=== PATIENT | male | born 1965 ===

== ENCOUNTER 2021-11-11 16:34 | Inpatient (IN) | payer MEDICAID, SELFPAY ==
[2021-11-11] VITALS (156 sets, daily range): BP systolic 110–135; BP diastolic 74–106; PULSE 92–139; RESP 4–26; TEMP 35.6–36.8; O2SAT 89–98
--- NOTE | 2021-11-11 16:15 | RT.EKG_ITS ---
APPROVED REPORT Exam: Resting ECG Reason for Exam: chest heaviness Patient Location: E HR:103 bpm ECG Measurements Heart Rate 103 AXIS [place] 166 P 57 QRSd 100 QRS 31 QT 382 T -21 QTc 481 Conclusion Sinus tachycardia...rate> 99 Atrial premature complexes...SV complexes w/ short R-R intvls Low voltage, extremity leads...all extremity leads <0.5mV Borderline ST elevation, anterior leads...ST >0.15mV in V1-V4. Sinus. PACs. No STEMI. I have reviewed and interpreted ECG and agree with software generated interpretation.
--- NOTE | 2021-11-11 16:45 | RT.EKG_ITS ---
APPROVED REPORT Exam: Resting ECG Reason for Exam: chest pain Patient Location: E HR:103 bpm ECG Measurements Heart Rate 103 AXIS [place] 195 P 60 QRSd 112 QRS 47 QT 385 T 6 QTc 503 Conclusion Ventricular-paced complexes...other complexes also detected Low voltage, extremity leads...all extremity leads <0.5mV Borderline ST elevation, anterior leads...ST >0.15mV in V1-V4 Prolonged QT interval...QTc >500mS. Sinus. PACs. No STEMI. I have reviewed and interpreted ECG and agree with software generated interpretation.
[2021-11-11 16:48] LABS: Abs Immature Grans 0.08 10^3/uL (0.0-0.06); HCT 38.9 % (40.0-50.0); HGB 13.3 g/dL (13.5-17.5); MCH 31.3 pg (27.0-33.0); MCHC 34.2 % (32.0-36.0); MCV 92 fL (80-95); Platelet Count 313 10^3/uL (130-400); RBC 4.25 10^6/uL (4.36-5.78); RDW 13.3 % (11.8-14.1); RDW-SD 44.6 fL; WBC 13.07 10^3/uL (4.4-10.8)
[2021-11-11 17:03] LABS: Absolute Lymphocyte Count 4.05 10^3/uL (1.2-3.4); Absolute Monocyte Count 0.78 10^3/uL (0.1-0.8); Absolute Neutrophil Count 8.23 10^3/uL (1.2-6.7)
[2021-11-11 17:04] LABS: Diff Comment Manual Differential; RBC Morphology Normal
--- NOTE | 2021-11-11 17:15 | DI.CT_ITS ---
Exam(s) CT THORAX ABD/PEL CTA EXAM: CT THORAX ABD/PEL CTA CLINICAL HISTORY: pe vs dissection. TECHNIQUE: Imaging Protocol: Axial CT angiography was performed with multi-slice acquisition and m ulti-planar and/or 3D reconstructions. CONTRAST MATERIAL: Intravenous: Omnipaque 350ml contrast volume:100 mL Oral: No COMPARISON: No exams were available for comparison FINDINGS: CHEST: Tracheobronchial tree: Patent where visualized. Pulmonary parenchyma: There is a 0.5 cm right upper lobe pulmonary nodule. There is a 0.5 cm right l ower lobe pulmonary nodule. Small less than 5 mm subpleural nodules are seen in the left lung. Ther e is a 4 mm nodule associated with the left major fissure. There is an infiltrate seen in the right middle lobe. No architectural distortion. Pulmonary Arteries: No evidence of filling defect to suggest pulmonary emboli. Mediastinum and Alie: There is extensive mediastinal and hilar adenopathy. The largest grouping of e nlarged lymph nodes seen in the subcarinal region measuring 3.8 x 5.68 cm in aggregate. Visualized thyroid: Unremarkable. Pleura: There are bilateral pleural effusions with mild associated infiltrates. There is a moderate right and small left pleural effusion. Heart: The heart is not dilated. Coronary artery calcifications are present. No pericardial effusion . Aorta: Thoracic aorta non-dilated. No evidence of dissection. Atherosclerosis is present. Soft Tissues: Unremarkable. Bones: Within normal limits for the patient's age. ABDOMEN AND PELVIS: Abdomen: Celiac axis/mesenteric arteries: No evidence of occlusion or significant stenosis. Renal Arteries: No evidence of occlusion or significant stenosis. Aorta: No evidence of occlusion or significant stenosis. No aneurysm or dissection. Atherosclerosi s is present. Pelvis: Iliac Arteries: No evidence of occlusion or significant stenosis. Atherosclerosis is present. Common Femoral Arteries: No evidence of occlusion or significant stenosis. Atherosclerosis is prese nt. ABDOMEN: Liver: Normal density. No measurable mass. Gallbladder and Biliary Tract: No radiodense calculus or dilation. There is mild pericholecystic flui d. Pancreas: Normal density, no abnormal calcifications or inflammatory process. Spleen: Normal. Adrenals: No masses seen. Kidneys: Normal size, contour and axis. No radiodense stones or obstructive uropathy. No masses seen. Bowel: No obstruction or bowel wall thickening. Appendix is unremarkable. Peritoneal Cavity: No ascites, collection or mesenteric inflammatory response. No free air. Lymph Nodes: Within normal limits. Bones: Within normal limits for the patient's age. Soft Tissues: Unremarkable. PELVIS: Bladder: Symmetric distention, no gross wall thickening. Reproductive Organs: Unremarkable as visualized. Lymph Nodes: Within normal limits. Bones: Within normal limits. IMPRESSION: 1. Small amount of fluid seen around the gallbladder. No stones are seen. Cholecystitis cannot be e ntirely excluded. Please correlate clinically. Ultrasound may be considered for further evaluation. 2. Extensive thoracic adenopathy. Neoplasm such as lymphoma should be considered. Tissue diagnosis is recommended. 3. Moderate right and small left pleural effusion with associated infiltrates which may represent ate lectasis or pneumonia. 4. No evidence of pulmonary embolism or aortic dissection. RADIATION DOSE DELIVERED: 1,099.87mGy.cm Total DLP DATA REPOSITORY: All CT scans at this facility are submitted to the National Radiology Data Registry (NRDR) Dose Index Registry (DIR) with the [employer] (A[employer]). RADIATION OPTIMIZATION: All CT scans at this facility use at least one of these dose optimization te chniques: automated exposure control; mA and/or kV adjustment per patient size (includes targeted exa ms where dose is matched to clinical indication); or iterative reconstruction.
[2021-11-11 17:44] LABS: ALT 35 U/L (16-63); AST 31 U/L (15-37); Albumin 3.5 g/dL (3.4-5.0); Alkaline Phosphatase 111 U/L (46-116); Anion Gap 10.8 mmol/L (3-11); BUN 23 mg/dL (7-18); Bilirubin, Total 1.2 mg/dL (0.2-1.0); CO2 24.2 mmol/L (21.0-32.0); CREATININE 1.4 mg/dL (0.70-1.30); Calcium 8.8 mg/dL (8.5-10.1); Chloride 102 mmol/L (98-107); Estimated GFR 52.05 (mL/min/1.73m2); Glucose 109 mg/dL (74-106); Magnesium 1.7 mg/dL (1.8-2.4); NT-proBNP 8917 pg/mL (<300); Potassium 4.3 mmol/L (3.5-5.1); Sodium 137 mmol/L (136-145); Total Protein 7.1 g/dL (6.4-8.2); Troponin I < 50 ng/L (<or=60)
[2021-11-11 17:48] LABS: Source Nasal/Nares
[2021-11-11 18:38] LABS: COVID-19 PCR Negative (Negative)
[2021-11-11] MEDS: Omnipaque 350 MG/ML 100 ML BTL IJ (18:40)
[2021-11-11] MEDS: Normal Saline Flush 10 ML SYR IVP ×2 (18:41→23:58)
--- NOTE | 2021-11-11 19:18 | W.ED.GENAD ---
Discharge Plan Disposition Patient Disposition: [facility] INPATIENT Condition: Serious Discharge Details Clinical Impression: Acute cholecystitis, CAD (coronary artery disease), [place] coronary artery, Sarcoid, Mediastinal adenopathy, Pleural effusion, right, Anemia Primary Care Provider: Jared Glez ED Provider: Loly Nur Home Meds and New Rx's Prescriptions: No Action atorvastatin 80 mg Tablet 80 mg PO DAILY meloxicam 7.5 mg Tablet 7.5 mg PO DAILY baclofen 10 mg Tablet 10 mg PO BID omeprazole 20 mg Capsule,Delayed Release(Dr/Ec) 20 mg PO BID hydroxyzine HCl 25 mg Tablet 25 mg PO TID PRN albuterol 90 mcg/actuation Aerosol 90 mcg INHALATION BID fluticasone propion-salmeterol [Advair Diskus] 100-50 mcg/dose Blister With Device 100 inh INHALATION BID fluoxetine 60 mg Tablet 60 mg PO DAILY Medical Decision Making This is a complex patient with known coronary artery disease with 2 stents 2 negative troponins and EKGs that appear baseline for patient From a cardiac standpoint, low suspicion for unstable angina Pain-free throughout this assessment with stable blood pressure 50 arterial chest, abdomen and pelvis shows diffuse mediastinal lymphadenopathy with moderate right-sided pleural effusion and small left-sided pleural effusion, no PE Acute cholecystitis on abdominal and pelvis CT, case discussed with radiologist, Dr. Tong CBC, white blood cell count of 13,000 Bilirubin mildly elevated at 1.2, no LFT or lipase changes Patient started on Zosyn after consultation with Dr. Tello Patient will need to be admitted to medicine as he is complex with multiple comorbidities I did order 20 mg of IV Lasix for suspected volume overload with a BNP of 89,000 which was ordered secondary to dyspnea Case discussed with Dr. Hernandez, agreeable to admitting the patient at this time Patient is full CODE STATUS He received aspirin and nitroglycerin prior to arrival and has been pain-free throughout this encounter Dr. Tello will consult tomorrow HPI General Date/Time Provider Initiated Documentation: 11/11/21 16:37. HPI Narrative: This 66-year-old male with a past medical history of sarcoidosis, coronary artery disease with 2 stents, hyperlipidemia, presents with chest pain for the past 2 and half weeks. Denies any fever or chills. States that he presents today because he went to the [facility] and they recommended he be transferred. He denies any change in pain today. He states he has some dyspnea on exertion. He denies any calf pain or swelling. He denies any recent flights or surgeries, prior, he is incarcerated. Denies prior history of coagulopathy. Denies weight gain. States he had an admission in July for pneumonia reportedly. Has not had a cardiac catheterization or stress test in the past several years. Denies any known exacerbating factors for his chest pain. Does report shortness of breath with exertion. Denies any hemoptysis. Denies any upper respiratory symptoms. Related Data Home Medications Medication Instructions Recorded Confirmed albuterol 90 mcg/actuation aerosol 90 mcg inhalation BID 11/11/21 11/11/21 inhaler atorvastatin 80 mg tablet 80 mg PO DAILY 11/11/21 11/11/21 baclofen 10 mg tablet 10 mg PO BID 11/11/21 11/11/21 fluoxetine 60 mg tablet 60 mg PO DAILY 11/11/21 11/11/21 fluticasone 100 mcg-salmeterol 50 100 inh inhalation BID 11/11/21 11/11/21 mcg/dose blistr powdr for inhalation (Advair Diskus) hydroxyzine HCl 25 mg tablet 25 mg PO TID PRN 11/11/21 11/11/21 meloxicam 7.5 mg tablet 7.5 mg PO DAILY 11/11/21 11/11/21 omeprazole 20 mg capsule,delayed 20 mg PO BID 11/11/21 11/11/21 release Allergies Allergy/AdvReac Type Severity Reaction Status Date / Time streptomycin Allergy Severe Swelling/Ed Unverified 11/11/21 16:41 cayetano pregabalin [From Lyrica] Allergy Unverified 11/11/21 16:41 General Stated Complaint: Chest Pain XANDER: 3 Review of Systems All systems reviewed & are unremarkable except as noted in HPI and below PFSH All Active Problems (Updated 11/11/21 @ 21:55 by Naga Hernandez) CAD (coronary artery disease), [place] coronary artery (Acute) Anemia (Chronic) Status post lumbar laminectomy (Acute) DJD (degenerative joint disease), lumbar (Acute) Mediastinal adenopathy (Acute) Sarcoid (Acute) Chronic GERD (Acute) Elevated brain natriuretic peptide (BNP) level (Acute) Enlarged heart (Acute) Pleural effusion, right (Acute) Acute cholecystitis (Acute) Social History Smoking/Tobacco Use Status: Former Tobacco Use Smoking risk assessment performed?: Yes Alcohol Intake: former Substance use type: does not use Do you feel safe at home: Yes Do you feel safe in your relationship?: Yes Exam Const General: cooperative and ill appearing Orientation: alert and oriented x3 HENMT Head: normal to inspection Mouth: oral mucosae normal Eyes Pupils: PERRL Resp Effort & Inspection: normal respiratory effort Auscultation: clear to auscultation bilaterally Cardio Rate: regular rate Rhythm: regular rhythm Heart Sounds: no murmurs GI Inspection: normal to inspection Other: mild ruq tenderness Skin General skin exam: no rashes or lesions noted Neuro General: patient alert and patient oriented x3 Extrem General: normal to inspection Other: no peripheral edema distal pulses intact n/v intact Course Vital Signs Vital signs: Vital Signs Temperature 36.1 C L 11/11/21 16:34 Pulse 92 H 11/11/21 16:34 Respiratory Rate 16 11/11/21 16:34 Blood Pressure 122/77 11/11/21 16:34 Pulse Oximetry 93 11/11/21 16:34 Temperature 36.1 C L 11/11/21 16:34 Pulse 96 H 11/11/21 18:01 Pulse 104 H 11/11/21 18:10 Respiratory Rate 21 11/11/21 18:10 Respiratory Effort 11/11/21 16:46 Respiratory Depth Normal 11/11/21 16:46 Respiratory Pattern Normal 11/11/21 16:46 Blood Pressure 115/91 H 11/11/21 18:01 Blood Pressure Mean 98 11/11/21 18:01 Pulse Oximetry 91 L 11/11/21 18:10 Pain Level 5 11/11/21 16:46 Lab/Test Results Lab/Test Results: Laboratory Tests Range/Units 11/11/21 11/11/21 11/11/21 16:40 16:40 17:17 WBC (4.4-10.8) 10^3/uL 13.07 H RBC (4.36-5.78) 10^6/uL 4.25 L Hgb (13.5-17.5) g/dL 13.3 L Hct (40.0-50.0) % 38.9 L MCV (80-95) fL 92 MCH (27.0-33.0) pg 31.3 MCHC (32.0-36.0) % 34.2 RDW (11.8-14.1) % 13.3 Plt Count (130-400) 10^3/uL 313 MPV (8.0-11.0) fL 11.0 Immature Gran % 0.0 Neutrophils % 63.0 Lymphocytes % 31.0 Monocytes % 6.0 Eosinophils % 0.0 Basophils % 0.0 Nucleated RBC % (0.0-0.3) % 0.0 Absolute Neutrophils (1.2-6.7) 10^3/uL 8.23 H Absolute Lymphocytes (1.2-3.4) 10^3/uL 4.05 H Absolute Monocytes (0.1-0.8) 10^3/uL 0.78 Absolute Eosinophils (0.0-0.7) 10^3/uL 0.00 Absolute Basophils (0.0-0.2) 10^3/uL 0.00 RBC Morphology Normal Sodium Cancelled 137 Potassium Cancelled 4.3 Chloride Cancelled 102 Carbon Dioxide Cancelled 24.2 Anion Gap Cancelled 10.8 BUN Cancelled 23 H Creatinine Cancelled 1.4 H Estimated GFR/1.73 m2 Cancelled 52.05 Glucose Cancelled 109 H Calcium Cancelled 8.8 Magnesium Cancelled 1.7 L Total Bilirubin Cancelled 1.2 H AST Cancelled 31 ALT Cancelled 35 Alkaline Phosphatase Cancelled 111 Troponin I Cancelled < 50 NT-Pro-B Natriuret Pep Cancelled 8917 H Total Protein Cancelled 7.1 Albumin Cancelled 3.5 COVID-19 Source SARS-CoV-2 (PCR) (Negative) Range/Units 11/11/ 17:40 WBC (4.4-10.8) 10^3/uL RBC (4.36-5.78) 10^6/uL Hgb (13.5-17.5) g/dL Hct (40.0-50.0) % MCV (80-95) fL MCH (27.0-33.0) pg MCHC (32.0-36.0) % RDW (11.8-14.1) % Plt Count (130-400) 10^3/uL MPV (8.0-11.0) fL Immature Gran % Neutrophils % Lymphocytes % Monocytes % Eosinophils % Basophils % Nucleated RBC % (0.0-0.3) % Absolute Neutrophils (1.2-6.7) 10^3/uL Absolute Lymphocytes (1.2-3.4) 10^3/uL Absolute Monocytes (0.1-0.8) 10^3/uL Absolute Eosinophils (0.0-0.7) 10^3/uL Absolute Basophils (0.0-0.2) 10^3/uL RBC Morphology Sodium Potassium Chloride Carbon Dioxide Anion Gap BUN Creatinine Estimated GFR/1.73 m2 Glucose Calcium Magnesium Total Bilirubin AST ALT Alkaline Phosphatase Troponin I NT-Pro-B Natriuret Pep Total Protein Albumin COVID-19 Source Nasal/Nares SARS-CoV-2 (PCR) (Negative) Negative
[2021-11-11] MEDS: fentaNYL 100 MCG/2 ML VIAL 50 MCG IVP (19:27)
--- NOTE | 2021-11-11 19:41 | DI.VRAD_ITS ---
Addendum created by Stanley Tong MD on 11/11/2021 9:15:12 PM EDT: Correction in the body of the report: Under the heading of intraperitoneal space, mild pelvic free air is recorded. This should read, mild pelvic free fluid. There is no free air observed in the abdomen or pelvis. Findings were discussed with Loly Nur at 11/11/2021 9:14 PM EDT. Addendum created by Stanley Tong MD on 11/11/2021 7:46:20 PM EDT: Findings were discussed with Loly Nur at 11/11/2021 7:43 PM EDT. Initial report created on 11/11/2021 7:41:44 PM EDT: PROCEDURE INFORMATION: Exam: CTA Chest With Contrast CTA Abdomen and Pelvis With Contrast Exam date and time: 11/11/2021 6:20 PM Age: 56 years old Clinical indication: Other: Pe vs dissection; Abdominal pain; Generalized TECHNIQUE: Imaging protocol: Computed tomographic angiography of the chest with contrast. Computed tomographic angiography of the abdomen and pelvis with contrast. 3D rendering (Not supervised by radiologist): MIP and/or 3D reconstructed images were created by the technologist. Contrast material: OMNIPAQUE 350; Contrast volume: 100 ml; Contrast route: INTRAVENOUS (IV); COMPARISON: No relevant prior studies available. FINDINGS: VASCULATURE: Pulmonary arteries: Normal. No pulmonary emboli. Aorta: No aortic aneurysm. No aortic dissection. No significant thoracic aortic plaque. Moderate plaque noted in the infrarenal abdominal aorta. Celiac trunk and mesenteric arteries: No occlusion or significant stenosis. Renal arteries: No occlusion or significant stenosis. Duplicated renal arteries noted on the right. Right iliac arteries: No occlusion or significant stenosis. Mild plaque. Left iliac arteries: No occlusion or significant stenosis. Mild plaque. CHEST: Lungs: Bilateral lower lobe consolidations and ground-glass opacities are present. Peripheral consolidation or scarring noted in the right middle lobe. No significant endobronchial mucus. Pleural spaces: Moderate right pleural effusion. Mild left pleural effusion. The effusions layer dependently, and no loculations are observed. Negative for pneumothorax. Heart: Mild-moderate coronary artery calcification. No cardiomegaly. No pericardial effusion. ABDOMEN AND PELVIS: Liver: No mass. Gallbladder and bile ducts: The gallbladder is abnormal. Fat stranding noted around the gallbladder. No calcified stones. No ductal dilatation. Pancreas: Unremarkable. No mass. No ductal dilation. Spleen: Unremarkable. No splenomegaly. Adrenal glands: Unremarkable. No mass. Kidneys and ureters: Unremarkable. No solid mass. No hydronephrosis. Stomach and bowel: Unremarkable. No obstruction. No mucosal thickening. Appendix: No evidence of appendicitis. Intraperitoneal space: Mild pelvic free air. No significant fluid collection. No free air. Urinary bladder: Unremarkable. No mass. Reproductive: Unremarkable as visualized. Lymph nodes: Mediastinal lymphadenopathy is noted. Paratracheal, subcarinal, subaortic, and bilateral hilar lymph nodes are enlarged. Lymph nodes are not calcified. A subcarinal lymph node or lymph node complex measures 2.8 x 5.1 cm, axial image 26 series 4. Mild bilateral supraclavicular lymphadenopathy partially visualized. Mildly enlarged portacaval lymph node noted. Bones/joints: Mild depression noted at the L1 superior endplate, chronic in appearance. Thoracic kyphosis is exaggerated. Mild disc space narrowing and osteophyte formation noted at several levels in the thoracic spine. Posterior fusion with laminectomy noted at L2-L3. Moderate degenerative changes present in the lumbar spine. Mild levoscoliosis noted. Soft tissues: Unremarkable. IMPRESSION: 1. CT findings of acute cholecystitis. Clinical correlation needed. Consider ultrasound. 2. Moderate mediastinal lymphadenopathy. Malignancy and granulomatous disease considered. Follow-up to tissue diagnosis recommended. Mild supraclavicular lymphadenopathy also noted. Consider CT soft tissue neck or PET-CT evaluation after resolution of the gallbladder disease. 3. Moderate right pleural effusion. 4. Mild left pleural effusion. 5. Sites of atelectasis and/or pneumonia in the lung bases. 6. Mild depression at the L1 superior endplate. 7. No pulmonary embolism. 8. No aortic dissection. Dictated and Authenticated by: Stanley Tong MD. Ordering:SE Salcido MD
[2021-11-11 19:48] LABS: Bilirubin Negative (Negative); Blood Negative (Negative); Clarity Clear (Clear); Glucose Negative (Negative); Ketones Negative (Negative); Leukocyte Esterase Negative (Negative); Nitrite Negative (Negative); Specific Gravity 1.025 (1.005-1.025); pH 5.5 (5-8)
[2021-11-11 20:07] LABS: Troponin I < 50 ng/L (<or=60)
[2021-11-11 20:08] LABS: Lipase 29 U/L (73-393)
--- NOTE | 2021-11-11 20:50 | PGE_ITS ---
Date of Service Date of service: 11/11/21 Time of Service: 20:50 Assessment and Plan Assessment and plan (1) Acute cholecystitis: Status: Acute Assessment and plan: Zosyn Supportive care Given his past medical history, his findings on CT scan and labs today, and our paucity of medical history on this patient, I would suggest further work-up to risk stratify for cardiopulmonary risk prior to general anesthesia. Full consultation to follow in a.m. Further work-up per professional programmer analyst/hospitalist (2) Pleural effusion, right: Status: Acute (3) Enlarged heart: Status: Acute (4) Elevated brain natriuretic peptide (BNP) level: Status: Acute Assessment and plan: Echo in a.m., if available (5) Chronic GERD: Status: Acute Assessment and plan: PPI (6) Sarcoid: Status: Acute Assessment and plan: - Consider pulmonary consult (7) Mediastinal adenopathy: Status: Acute (8) DJD (degenerative joint disease), lumbar: Status: Acute (9) Status post lumbar laminectomy: Status: Acute (10) Anemia: Status: Chronic Assessment and plan: Ferritin in a.m. Subjective Subjective Interval history since last seen: Patient came into the ED complaining of chest pain. He appears to have a acute cholecystitis on CT scan. He also appears to have a large right pleural effusion/on large body heart on CT scan/and a BNP of 9000. He needs more of a cardiac evaluation prior to any surgery. I would admit him for IV antibiotics and further cardiac work-up before consideration of surgery. Objective Last Vital Signs Temp 36.1 C L 11/11/21 16:34 Pulse 133 H 11/11/21 19:31 Resp 20 11/11/21 19:52 BP 132/94 H 11/11/21 19:46 Pulse Ox 95 11/11/21 19:52 Laboratory Results - last 24 hr 11/11/21 11/11/21 11/11/21 16:40 16:40 17:17 WBC 13.07 H RBC 4.25 L Hgb 13.3 L Hct 38.9 L MCV 92 MCH 31.3 MCHC 34.2 RDW 13.3 Plt Count 313 MPV 11.0 Immature Gran % 0.0 Neutrophils % 63.0 Lymphocytes % 31.0 Monocytes % 6.0 Eosinophils % 0.0 Basophils % 0.0 Nucleated RBC % 0.0 Absolute Neutrophils 8.23 H Absolute Lymphocytes 4.05 H Absolute Monocytes 0.78 Absolute Eosinophils 0.00 Absolute Basophils 0.00 RBC Morphology Normal Sodium Cancelled 137 Potassium Cancelled 4.3 Chloride Cancelled 102 Carbon Dioxide Cancelled 24.2 Anion Gap Cancelled 10.8 BUN Cancelled 23 H Creatinine Cancelled 1.4 H Estimated GFR/1.73 m2 Cancelled 52.05 Glucose Cancelled 109 H Calcium Cancelled 8.8 Magnesium Cancelled 1.7 L Total Bilirubin Cancelled 1.2 H AST Cancelled 31 ALT Cancelled 35 Alkaline Phosphatase Cancelled 111 Troponin I Cancelled < 50 NT-Pro-B Natriuret Pep Cancelled 8917 H Total Protein Cancelled 7.1 Albumin Cancelled 3.5 Lipase Urine Color Urine Clarity Urine pH Ur Specific [place] Urine Protein Urine Ketones Urine Blood Urine Nitrite Urine Bilirubin Urine Urobilinogen Ur Leukocyte Esterase Urine Glucose COVID-19 Source SARS-CoV-2 (PCR) 11/11/21 11/11/21 11/11/21 17:40 19:23 19:45 WBC RBC Hgb Hct MCV MCH MCHC RDW Plt Count MPV Immature Gran % Neutrophils % Lymphocytes % Monocytes % Eosinophils % Basophils % Nucleated RBC % Absolute Neutrophils Absolute Lymphocytes Absolute Monocytes Absolute Eosinophils Absolute Basophils RBC Morphology Sodium Potassium Chloride Carbon Dioxide Anion Gap BUN Creatinine Estimated GFR/1.73 m2 Glucose Calcium Magnesium Total Bilirubin AST ALT Alkaline Phosphatase Troponin I < 50 NT-Pro-B Natriuret Pep Total Protein Albumin Lipase Urine Color Yellow Urine Clarity Clear Urine pH 5.5 Ur Specific [place] 1.025 Urine Protein Negative Urine Ketones Negative Urine Blood Negative Urine Nitrite Negative Urine Bilirubin Negative Urine Urobilinogen 1.0 H Ur Leukocyte Esterase Negative Urine Glucose Negative COVID-19 Source Nasal/Nares SARS-CoV-2 (PCR) Negative 11/11/21 19:45 WBC RBC Hgb Hct MCV MCH MCHC RDW Plt Count MPV Immature Gran % Neutrophils % Lymphocytes % Monocytes % Eosinophils % Basophils % Nucleated RBC % Absolute Neutrophils Absolute Lymphocytes Absolute Monocytes Absolute Eosinophils Absolute Basophils RBC Morphology Sodium Potassium Chloride Carbon Dioxide Anion Gap BUN Creatinine Estimated GFR/1.73 m2 Glucose Calcium Magnesium Total Bilirubin AST ALT Alkaline Phosphatase Troponin I NT-Pro-B Natriuret Pep Total Protein Albumin Lipase 29 Urine Color Urine Clarity Urine pH Ur Specific [place] Urine Protein Urine Ketones Urine Blood Urine Nitrite Urine Bilirubin Urine Urobilinogen Ur Leukocyte Esterase Urine Glucose COVID-19 Source SARS-CoV-2 (PCR)
[2021-11-11] MEDS: Furosemide 20 MG/2 ML VIAL IVP (21:11)
[2021-11-11] MEDS: PIPERACILLIN/TAZO 3.375 GM in Normal Saline 50 ML IVPB (21:12)
[2021-11-11 21:33] LABS: Lactate 1.5 mmol/L (0.6-1.4)
[2021-11-11 21:38] LABS: INR 1.2 (0.9-1.1)
--- NOTE | 2021-11-11 21:53 | HPE_ITS ---
Date of service: 11/11/21 Time of Service: 21:54 Assessment and Plan Assessment and plan (1) Atypical chest pain: Start date: 11/11/21 Status: Acute Assessment and plan: This is a 56-year-old female who presented [facility] the ED [facility] with a 2-week history of chest pain and discomfort over his abdomen and his right testicle. Imaging and evaluation in the ER regarding the patient and possible cholecystitis did have a response to nitroglycerin x2 sublingual before reaching the emergency department. He will be admitted for trending troponins and is having surgical consultation for possible cholecystitis. His description of chest pain is not typical of angina. He does have a history of CAD with previous stenting. (2) CAD (coronary artery disease), [place] coronary artery: Status: Chronic Assessment and plan: Ongoing risk factors with previous stenting and response to nitroglycerin sublingually without chest pain, has been esophageal with possible GI process with cholecystitis being followed by surgery. Continue outpatient medical therapy with nitroglycerin sublingually as needed. (3) Pleural effusion, right: Start date: 11/11/21 Status: Acute Assessment and plan: Probable CHF associate with CAD with patient to have diuresis if indicated. Echocardiogram to be evaluated with cardiology consultation if available. (4) Acute cholecystitis: Start date: 11/11/21 Status: Suspected Assessment and plan: Ultrasound abdomen scheduled by surgery with surgery following up on abnormal CT. Patient has normal discomfort over his gallbladder area. (5) Sarcoid: Status: Chronic Assessment and plan: Patient has history of sarcoidosis and does have some abnormal CT findings of the chest which may be contributing to his discomfort. IV hydrocortisone with consideration of oral steroids. Long-term needs to see pulmonary and further evaluation if he has recurring sarcoidosis. (6) Acute epididymitis: Start date: 11/11/21 Status: Acute Assessment and plan: Acute onset of right testicular pain with minimal physical findings but will add doxycycline to antibiotic treatment. Follow-up clinically. History of Present Illness History of Present Illness Chief Complaint: Chest pain at rest, MARTELL and right testicular pain Narrative: This is a 86-year-old male who is incarcerated locally who presented to the ED with complaints of left chest pain for 1 and half. He was [facility] and he was sent to the ED for evaluation. He did receive nitroglycerin x2 prior to arrival to the ED with complete relief in initial discomfort in his left chest and was pain-free throughout his evaluation only complaint of ankle pain left upper mid chest the time of my examination. He states that the chest pain was not reproducible to palpation and had no radiate. He did appear slightly diaphoretic and pale in the ED and continues to look chronically ill at time of my exam examination. He denies any swelling to lower extremities but does have discomfort over his right testicle which is a separate problem. He does have occasional abdominal discomfort mostly over his right upper abdomen. He was found to have cholecystitis on imaging the ED. Surgery has been consulted. The patient does have a past history of sarcoidosis and CAD status post stenting x2 in the remote past. He has hyperlipidemia and is obese. He appears sedentary. Patient did have an admission for pneumonia in July of this year. He denies any history of coagulopathy. He has had dyspnea with exertion but no hemoptysis and no significant cough. He was admitted for further evaluation by surgery and trending of troponins with his chest discomfort re sponding to nitroglycerin sublingually. Cardiology has exercised for nuclear stress test should be performed and may be necessary for preoperative clearance if patient is entertaining surgery. Review of Systems Narrative: 13 point review of systems otherwise unrevealing or stable. Patient has depressed mood and increased somatic complaint. PFSH All Active Problems COPD (chronic obstructive pulmonary disease) (Chronic) Discharge planning issues (Acute) DVT prophylaxis (Acute) Acute on chronic systolic CHF (congestive heart failure) (Acute) Bilateral pleural effusion (Acute) Thoracic lymphadenopathy (Chronic) Scrotal pain (Acute) COPD suggested by initial evaluation (Acute) CHF (congestive heart failure) (Chronic) Scrotal pain (Acute) Acute epididymitis (Acute) Atypical chest pain (Acute) CAD (coronary artery disease), [place] coronary artery (Chronic) Anemia (Chronic) Status post lumbar laminectomy (Acute) DJD (degenerative joint disease), lumbar (Acute) Mediastinal adenopathy (Acute) Sarcoid (Chronic) Chronic GERD (Acute) Elevated brain natriuretic peptide (BNP) level (Acute) Enlarged heart (Acute) Pleural effusion, right (Acute) Social History Smoking/Tobacco Use Status: Former Tobacco Use Smoking risk assessment performed?: Yes Alcohol Intake: former Substance use type: does not use Do you feel safe at home: Yes Do you feel safe in your relationship?: Yes Meds Allergies and Home Medications Allergies Allergy/AdvReac Type Severity Reaction Status Date / Time streptomycin Allergy Severe Swelling/Ed Unverified 11/11/21 16:41 cayet[place] pregabalin [From Lyrica] Allergy Unverified 11/11/21 16:41 Home Medications Medication Instructions Recorded Confirmed Type albuterol 90 mcg/actuation aerosol 90 mcg inhalation BID 11/11/21 11/11/21 History inhaler atorvastatin 80 mg tablet 80 mg PO DAILY 11/11/21 11/11/21 History baclofen 10 mg tablet 10 mg PO BID 11/11/21 11/11/21 History fluoxetine 60 mg tablet 60 mg PO DAILY 11/11/21 11/11/21 History fluticasone 100 mcg-salmeterol 50 100 inh inhalation BID 11/11/21 11/11/21 History mcg/dose blistr powdr for inhalation (Advair Diskus) hydroxyzine HCl 25 mg tablet 25 mg PO TID PRN 11/11/21 11/11/21 History meloxicam 7.5 mg tablet 7.5 mg PO DAILY 11/11/21 11/11/21 History omeprazole 20 mg capsule,delayed 20 mg PO BID 11/11/21 11/11/21 History release Exam Narrative Exam Narrative: General: Patient appears older than stated age, flattened affect with depressed mood. Slow monotonous tone to voice. Alert and oriented x3 and in moderate distress from his discomfort. HEENT: Normocephalic, coarsened facial features cleanly shaved, eyes with pupils equal and reactive to light, extraocular movement intact and sclera anicteric. Oropharynx with moist mucosa. Neck: Supple without JVD. Back: Stooped posture without CVA tenderness. Lungs: Bronchovesicular breath sounds diffusely with no focalizing rales or rhonchi no expiratory wheeze. Slightly decreased aeration diffusely. Flank tenderness to palpation of the left upper mid chest without crepitus. Heart: Regular rate and rhythm with no appreciable murmur or gallop. Abdomen: Obese contour, soft to palpation and slight discomfort over right upper quadrant but no Phillips sign. Bowel sounds positive in all quadrants. No palpable hepatosplenomegaly. Genitalia: Normal penis and scrotum with left testicle normal. Right testicle with tender epididymis and indurated cord with minimal swelling. No other palpa ble masses. Rectal exam deferred. Extremities: Without clubbing, cyanosis or pitting edema. Fair capillary refill. Skin: Pale, warm and dry. Neuro: Cranial nerves II through XII grossly intact, no focalizing motor deficits. Psych: Flat affect with depressed mood. No abnormal thought processes. Remote and recent memory intact. Results Imaging Imaging Studies: Addendum created by Stanley Tong MD on 11/11/2021 9:15:12 PM EDT: Correction in the body of the report: Under the heading of intraperitoneal space, mild pelvic free air is recorded. ?This should read, mild pelvic free fluid.? There is no free air observed in the abdomen or pelvis. Findings were discussed with Loly Nur at 11/11/2021 9:14 PM EDT. Addendum created by Stanley Tong MD on 11/11/2021 7:46:20 PM EDT: Findings were discussed with Loly Nur at 11/11/2021 7:43 PM EDT. Initial report created on 11/11/2021 7:41:44 PM EDT: PROCEDURE INFORMATION: Exam: CTA Chest With Contrast CTA Abdomen and Pelvis With Contrast Exam date and time: 11/11/2021 6:20 PM Age: 56 years old Clinical indication: Other: Pe vs dissection; Abdominal pain; Generalized TECHNIQUE: Imaging protocol: Computed tomographic angiography of the chest with contrast. Computed tomographic angiography of the abdomen and pelvis with contrast. 3D rendering (Not supervised by radiologist): MIP and/or 3D reconstructed images were created by the technologist. Contrast material: OMNIPAQUE 350; Contrast volume: 100 ml; Contrast route: INTRAVENOUS (IV);? COMPARISON: No relevant prior studies available. FINDINGS: VASCULATURE: Pulmonary arteries: Normal. No pulmonary emboli. Aorta: No aortic aneurysm. No aortic dissection. No significant thoracic aortic plaque. Moderate plaque noted in the infrarenal abdominal aorta. Celiac trunk and mesenteric arteries: No occlusion or significant stenosis. Renal arteries: No occlusion or significant stenosis. Duplicated renal arteries noted on the right. Right iliac arteries: No occlusion or significant stenosis. Mild plaque. Left iliac arteries: No occlusion or significant stenosis. Mild plaque. CHEST: Lungs: Bilateral lower lobe consolidations and ground-glass opacities are present. Peripheral consolidation or scarring noted in the right middle lobe. No significant endobronchial mucus. Pleural spaces: Moderate right pleural effusion. Mild left pleural effusion. The effusions layer dependently, and no loculations are observed. Negative for pneumothorax. Heart: Mild-moderate coronary artery calcification. No cardiomegaly. No pericardial effusion. ABDOMEN AND PELVIS: Liver: No mass. Gallbladder and bile ducts: The gallbladder is abnormal. Fat stranding noted around the gallbladder. No calcified stones. No ductal dilatation. Pancreas: Unremarkable. No mass. No ductal dilation. Spleen: Unremarkable. No splenomegaly. Adrenal glands: Unremarkable. No mass. Kidneys and ureters: Unremarkable. No solid mass. No hydronephrosis. Stomach and bowel: Unremarkable. No obstruction. No mucosal thickening. Appendix: No evidence of appendicitis. Intraperitoneal space: Mild pelvic free air. No significant fluid collection. No free air. Urinary bladder: Unremarkable. No mass. Reproductive: Unremarkable as visualized. Lymph nodes: Mediastinal lymphadenopathy is noted. Paratracheal, subcarinal, subaortic, and bilateral hilar lymph nodes are enlarged. Lymph nodes are not calcified. A subcarinal lymph node or lymph node complex measures 2.8 x 5.1 cm, axial image 26 series 4. Mild bilateral supraclavicular lymphadenopathy partially visualized. Mildly enlarged portacaval lymph node noted. Bones/joints: Mild depression noted at the L1 superior endplate, chronic in appearance. Thoracic kyphosis is exaggerated. Mild disc space narrowing and osteophyte formation noted at several levels in the thoracic spine. Posterior fusion with laminectomy noted at L2-L3. Moderate degenerative changes present in the lumbar spine. Mild levoscoliosis noted. Soft tissues: Unremarkable. IMPRESSION: 1. CT findings of acute cholecystitis. Clinical correlation needed. Consider ultrasound. 2. Moderate mediastinal lymphadenopathy. Malignancy and granulomatous disease considered. Follow-up to tissue diagnosis recommended. Mild supraclavicular lymphadenopathy also noted. Consider CT soft tissue neck or PET-CT evaluation after resolution of the gallbladder disease. 3. Moderate right pleural effusion. 4. Mild left pleural effusion. 5. Sites of atelectasis and/or pneumonia in the lung bases. 6. Mild depression at the L1 superior endplate. 7. No pulmonary embolism. 8. No aortic dissection. Dictated and Authenticated by: Stanley Tong MD. Labs Result diagrams: 11/12/21 04:01 11/12/21 05:35 Labs: Laboratory Results - last 24 hr 11/11/21 11/11/21 11/11/21 16:40 16:40 16:40 WBC 13.07 H RBC 4.25 L Hgb 13.3 L Hct 38.9 L MCV 92 MCH 31.3 MCHC 34.2 RDW 13.3 Plt Count 313 MPV 11.0 Immature Gran % 0.0 Neutrophils % 63.0 Lymphocytes % 31.0 Monocytes % 6.0 Eosinophils % 0.0 Basophils % 0.0 Nucleated RBC % 0.0 Absolute Neutrophils 8.23 H Absolute Lymphocytes 4.05 H Absolute Monocytes 0.78 Absolute Eosinophils 0.00 Absolute Basophils 0.00 RBC Morphology Normal PT 12.0 H INR 1.2 H VBG Lactate Sodium Cancelled Potassium Cancelled Chloride Cancelled Carbon Dioxide Cancelled Anion Gap Cancelled BUN Cancelled Creatinine Cancelled Estimated GFR/1.73 m2 Cancelled Glucose Cancelled Calcium Cancelled Magnesium Cancelled Total Bilirubin Cancelled AST Cancelled ALT Cancelled Alkaline Phosphatase Cancelled Troponin I Cancelled NT-Pro-B Natriuret Pep Cancelled Total Protein Cancelled Albumin Cancelled Lipase Urine Color Urine Clarity Urine pH Ur Specific [place] Urine Protein Urine Ketones Urine Blood Urine Nitrite Urine Bilirubin Urine Urobilinogen Ur Leukocyte Esterase Urine Glucose COVID-19 Source SARS-CoV-2 (PCR) 11/11/21 11/11/21 11/11/21 17:17 17:40 19:23 WBC RBC Hgb Hct MCV MCH MCHC RDW Plt Count MPV Immature Gran % Neutrophils % Lymphocytes % Monocytes % Eosinophils % Basophils % Nucleated RBC % Absolute Neutrophils Absolute Lymphocytes Absolute Monocytes Absolute Eosinophils Absolute Basophils RBC Morphology PT INR VBG Lactate Sodium 137 Potassium 4.3 Chloride 102 Carbon Dioxide 24.2 Anion Gap 10.8 BUN 23 H Creatinine 1.4 H Estimated GFR/1.73 m2 52.05 Glucose 109 H Calcium 8.8 Magnesium 1.7 L Total Bilirubin 1.2 H AST 31 ALT 35 Alkaline Phosphatase 111 Troponin I < 50 NT-Pro-B Natriuret Pep 8917 H Total Protein 7.1 Albumin 3.5 Lipase Urine Color Yellow Urine Clarity Clear Urine pH 5.5 Ur Specific [place] 1.025 Urine Protein Negative Urine Ketones Negative Urine Blood Negative Urine Nitrite Negative Urine Bilirubin Negative Urine Urobilinogen 1.0 H Ur Leukocyte Esterase Negative Urine Glucose Negative COVID-19 Source Nasal/Nares SARS-CoV-2 (PCR) Negative 11/11/21 11/11/21 11/11/21 19:45 19:45 21:27 WBC RBC Hgb Hct MCV MCH MCHC RDW Plt Count MPV Immature Gran % Neutrophils % Lymphocytes % Monocytes % Eosinophils % Basophils % Nucleated RBC % Absolute Neutrophils Absolute Lymphocytes Absolute Monocytes Absolute Eosinophils Absolute Basophils RBC Morphology PT INR VBG Lactate 1.5 H Sodium Potassium Chloride Carbon Dioxide Anion Gap BUN Creatinine Estimated GFR/1.73 m2 Glucose Calcium Magnesium Total Bilirubin AST ALT Alkaline Phosphatase Troponin I < 50 NT-Pro-B Natriuret Pep Total Protein Albumin Lipase 29 Urine Color Urine Clarity Urine pH Ur Specific [place] Urine Protein Urine Ketones Urine Blood Urine Nitrite Urine Bilirubin Urine Urobilinogen Ur Leukocyte Esterase Urine Glucose COVID-19 Source SARS-CoV-2 (PCR) Last Vital Signs Temp 36.1 C L 11/11/21 16:34 Pulse 100 H 11/11/21 21:01 Resp 20 11/11/21 21:16 BP 128/88 11/11/21 21:01 Pulse Ox 95 11/11/21 21:15
[2021-11-11] MEDS: Albuterol 2.5 MG/3 ML INH SOLN VIAL UPD (22:31)
[2021-11-11 22:51] LABS: TSH (W/Ref FT4) 7.88 uIU/mL (0.36-3.74)
[2021-11-11 23:08] LABS: FREE T4 1.26 ng/dL (0.76-1.46)
[2021-11-11] MEDS: Hydrocortisone SOD SUC. 100 MG VIAL IVP (23:45)
[2021-11-11] MEDS: Aspirin 81 MG CHEW PO (23:55)
[2021-11-11] MEDS: Albuterol/Ipratropium 3 ML UPD VIAL UPD (23:55)
[2021-11-11] MEDS: nitroGLYcerin 0.4 MG TAB SL (23:57)
[2021-11-11] MEDS: MAGNESIUM SULFATE 2 GM/50 ML BAG IVPB (23:57)
[2021-11-12] VITALS (13 sets, daily range): BP systolic 108–138; BP diastolic 66–99; PULSE 68–110; RESP 2–19; TEMP 35.6–36.7; O2SAT 91–99
[2021-11-12] MEDS: Acetaminophen 325 MG TAB 650 MG PO (03:02)
[2021-11-12] MEDS: Albuterol/Ipratropium 3 ML UPD VIAL UPD ×4 (03:02→23:06)
[2021-11-12 04:09] LABS: Abs Immature Grans 0.06 10^3/uL (0.0-0.06); Absolute Basophil Count 0.06 10^3/uL (0.0-0.2); Absolute Eosinophil Count 0.02 10^3/uL (0.0-0.7); Absolute Lymphocyte Count 1.46 10^3/uL (1.2-3.4); Absolute Monocyte Count 0.59 10^3/uL (0.1-0.8); Absolute Neutrophil Count 8.08 10^3/uL (1.2-6.7); Basophils % 0.6; Eosinophils % 0.2; HCT 42.6 % (40.0-50.0); HGB 14.4 g/dL (13.5-17.5); Immature Grans % 0.6; Lymphocytes % 14.2; MCH 30.8 pg (27.0-33.0); MCHC 33.8 % (32.0-36.0); MCV 91 fL (80-95); MPV 10.4 fL (8.0-11.0); Monocytes % 5.7; Neutrophils % 78.7; Platelet Count 326 10^3/uL (130-400); RBC 4.68 10^6/uL (4.36-5.78); RDW 13.4 % (11.8-14.1); RDW-SD 44.9 fL; WBC 10.27 10^3/uL (4.4-10.8)
[2021-11-12 04:19] LABS: INR 1.2 (0.9-1.1); Prothrombin Time 11.6 sec (9.3-11.0)
[2021-11-12 04:40] LABS: Procalcitonin < 0.1 ng/mL
[2021-11-12 04:42] LABS: Ferritin 74 ng/mL (26-388); Troponin I < 50 ng/L (<or=60)
[2021-11-12] MEDS: PIPERACILLIN/TAZO 3.375 GM in Normal Saline 50 ML IVPB ×2 (06:33→14:55)
--- NOTE | 2021-11-12 08:00 | DI.US_ITS ---
Exam(s) US ABDOMEN EXAM: US ABDOMEN CLINICAL HISTORY: acute [place] TECHNIQUE: Ultrasound abdomen performed using standard protocol. COMPARISON: No exams were available for comparison FINDINGS: ABDOMINAL AORTA AND IVC: Visualized portions normal caliber. PANCREAS: Normal where visualized. LIVER: Normal. Hepatopedal flow in the Portal Vein. The liver measures 17 cm long. GALLBLADDER:No evidence of cholelithiasis. No evidence of wall thickening. No pericholecystic fluid i dentified. The liver measures 4.4 cm transverse diameter. BILIARY SYSTEM: Common bile duct measures < 7 mm. No intrahepatic biliary ductal dilation. GERARD'S SIGN: Negative. KIDNEYS: Kidneys are symmetric in size. No evidence of renal calculi. No evidence of hydronephrosis. No renal mass or cyst identified. SPLEEN: Not enlarged. ASCITES: None seen. IMPRESSION: No ultrasound evidence of acute cholecystitis. DATA REPOSITORY:
[2021-11-12 08:09] LABS: ALT 36 U/L (16-63); AST 13 U/L (15-37); Alkaline Phosphatase 127 U/L (46-116); Anion Gap 17.3 mmol/L (3-11); BUN 21 mg/dL (7-18); Bilirubin, Total 1.5 mg/dL (0.2-1.0); C-Reactive Protein 1.69 mg/dL (0.0-0.3); CO2 19.7 mmol/L (21.0-32.0); Chloride 99 mmol/L (98-107); Glucose 141 mg/dL (74-106); Lipase 25 U/L (73-393); Magnesium 2.1 mg/dL (1.8-2.4); NT-proBNP 8441 pg/mL (<300); Potassium 4.2 mmol/L (3.5-5.1); Sodium 136 mmol/L (136-145); Total Protein 7.9 g/dL (6.4-8.2)
--- NOTE | 2021-11-12 08:09 | W.UROLOGYCON ---
Date of service: 11/12/21 Time of Service: 12:13 Assessment and Plan Assessment and plan (1) Scrotal pain: Status: Acute Assessment and plan: I do not find any evidence of an infectious cause for his discomfort. I do not believe he requires any specific urologic antibiotics. I would recommend anti-inflammatory medications and supportive measures. History of Present Illness History of Present Illness Chief Complaint: Scrotal pain Narrative: This is a 56-year-old gentleman who is currently hospitalized with cholecystitis. I have been asked to see him after he developed some right scrotal discomfort and pain. He tells me the discomfort only began yesterday. He went from a sitting to a standing position and had an acute onset of discomfort. He noticed that there was some additional swelling on the right side. He did not notice any skin changes. He did not recall any specific trauma to the site. He was having no dysuria or gross hematuria. He has never had a similar episode. He has no history of inguinal or scrotal surgeries. Review of Systems Narrative: No fevers or chills No vision change or dysphasia No diabetes or thyroid dysfunction No hemoptysis No seizures, strokes or peripheral neuropathy No bleeding disorders or anemia No gout PFSH All Active Problems (Updated 11/12/21 @ 12:18 by Breezy Tong MD) Scrotal pain (Acute) Acute epididymitis (Acute) Atypical chest pain (Acute) CAD (coronary artery disease), [place] coronary artery (Acute) Anemia (Chronic) Status post lumbar laminectomy (Acute) DJD (degenerative joint disease), lumbar (Acute) Mediastinal adenopathy (Acute) Sarcoid (Acute) Chronic GERD (Acute) Elevated brain natriuretic peptide (BNP) level (Acute) Enlarged heart (Acute) Pleural effusion, right (Acute) Acute cholecystitis (Acute) Social History Smoking/Tobacco Use Status: Former Tobacco Use Smoking risk assessment performed?: Yes Alcohol Intake: former Substance use type: does not use Do you feel safe at home: Yes Do you feel safe in your relationship?: Yes Exam Narrative Exam Narrative: He did not appear septic or toxic His vital signs are documented elsewhere The scrotum has not been her evidence for ecchymotic. Both testes are soft with no masses. There is mild tenderness on the right epididymis on the right scrotum shows some edema He is awake and alert His urinalysis from last evening is completely normal I reviewed his CT scan and see no abnormalities in the kidneys or bladder. I reviewed his records from [facility]. It appears that most of his emergency room visits and hospitalizations have been through the [facility] system. I am unable to access those records, but based on admitting diagnoses, he has a history of alcohol abuse, toxic encephalopathy and pneumonia (most recently June,) Results Last Vital Signs Temp 36.2 C L 11/12/21 07:57 Pulse 99 H 11/12/21 07:57 Resp 19 11/12/21 07:57 BP 131/91 H 11/12/21 07:57 Pulse Ox 91 L 11/12/21 07:57 Labs Result diagrams: 11/12/21 04:01 11/12/21 05:35 Labs: Laboratory Results - last 24 hr 11/11/21 11/11/21 11/11/21 16:40 16:40 16:40 WBC 13.07 H RBC 4.25 L Hgb 13.3 L Hct 38.9 L MCV 92 MCH 31.3 MCHC 34.2 RDW 13.3 Plt Count 313 MPV 11.0 Immature Gran % 0.0 Neutrophils % 63.0 Lymphocytes % 31.0 Monocytes % 6.0 Eosinophils % 0.0 Basophils % 0.0 Nucleated RBC % 0.0 Absolute Neutrophils 8.23 H Absolute Lymphocytes 4.05 H Absolute Monocytes 0.78 Absolute Eosinophils 0.00 Absolute Basophils 0.00 RBC Morphology Normal PT 12.0 H INR 1.2 H VBG Lactate Sodium Cancelled Potassium Cancelled Chloride Cancelled Carbon Dioxide Cancelled Anion Gap Cancelled BUN Cancelled Creatinine Cancelled Estimated GFR/1.73 m2 Cancelled Glucose Cancelled Calcium Cancelled Magnesium Cancelled Ferritin Total Bilirubin Cancelled AST Cancelled ALT Cancelled Alkaline Phosphatase Cancelled Troponin I Cancelled NT-Pro-B Natriuret Pep Cancelled Total Protein Cancelled Albumin Cancelled Lipase Procalcitonin TSH Free T4 Urine Color Urine Clarity Urine pH Ur Specific [place] Urine Protein Urine Ketones Urine Blood Urine Nitrite Urine Bilirubin Urine Urobilinogen Ur Leukocyte Esterase Urine Glucose COVID-19 Source SARS-CoV-2 (PCR) 11/11/21 11/11/21 11/11/21 17:17 17:40 19:23 WBC RBC Hgb Hct MCV MCH MCHC RDW Plt Count MPV Immature Gran % Neutrophils % Lymphocytes % Monocytes % Eosinophils % Basophils % Nucleated RBC % Absolute Neutrophils Absolute Lymphocytes Absolute Monocytes Absolute Eosinophils Absolute Basophils RBC Morphology PT INR VBG Lactate Sodium 137 Potassium 4.3 Chloride 102 Carbon Dioxide 24.2 Anion Gap 10.8 BUN 23 H Creatinine 1.4 H Estimated GFR/1.73 m2 52.05 Glucose 109 H Calcium 8.8 Magnesium 1.7 L Ferritin Total Bilirubin 1.2 H AST 31 ALT 35 Alkaline Phosphatase 111 Troponin I < 50 NT-Pro-B Natriuret Pep 8917 H Total Protein 7.1 Albumin 3.5 Lipase Procalcitonin TSH Free T4 Urine Color Yellow Urine Clarity Clear Urine pH 5.5 Ur Specific [place] 1.025 Urine Protein Negative Urine Ketones Negative Urine Blood Negative Urine Nitrite Negative Urine Bilirubin Negative Urine Urobilinogen 1.0 H Ur Leukocyte Esterase Negative Urine Glucose Negative COVID-19 Source Nasal/Nares SARS-CoV-2 (PCR) Negative 11/11/21 11/11/21 11/11/21 19:45 19:45 21:27 WBC RBC Hgb Hct MCV MCH MCHC RDW Plt Count MPV Immature Gran % Neutrophils % Lymphocytes % Monocytes % Eosinophils % Basophils % Nucleated RBC % Absolute Neutrophils Absolute Lymphocytes Absolute Monocytes Absolute Eosinophils Absolute Basophils RBC Morphology PT INR VBG Lactate 1.5 H Sodium Potassium Chloride Carbon Dioxide Anion Gap BUN Creatinine Estimated GFR/1.73 m2 Glucose Calcium Magnesium Ferritin Total Bilirubin AST ALT Alkaline Phosphatase Troponin I < 50 NT-Pro-B Natriuret Pep Total Protein Albumin Lipase 29 Procalcitonin TSH Free T4 Urine Color Urine Clarity Urine pH Ur Specific [place] Urine Protein Urine Ketones Urine Blood Urine Nitrite Urine Bilirubin Urine Urobilinogen Ur Leukocyte Esterase Urine Glucose COVID-19 Source SARS-CoV-2 (PCR) 11/11/21 11/12/21 11/12/21 21:27 04:01 04:01 WBC RBC Hgb Hct MCV MCH MCHC RDW Plt Count MPV Immature Gran % Neutrophils % Lymphocytes % Monocytes % Eosinophils % Basophils % Nucleated RBC % Absolute Neutrophils Absolute Lymphocytes Absolute Monocytes Absolute Eosinophils Absolute Basophils RBC Morphology PT INR VBG Lactate Sodium Potassium Chloride Carbon Dioxide Anion Gap BUN Creatinine Estimated GFR/1.73 m2 Glucose Calcium Magnesium Ferritin 74 Total Bilirubin AST ALT Alkaline Phosphatase Troponin I < 50 NT-Pro-B Natriuret Pep Total Protein Albumin Lipase Procalcitonin < 0.1 TSH 7.88 H Free T4 1.26 Urine Color Urine Clarity Urine pH Ur Specific [place] Urine Protein Urine Ketones Urine Blood Urine Nitrite Urine Bilirubin Urine Urobilinogen Ur Leukocyte Esterase Urine Glucose COVID-19 Source SARS-CoV-2 (PCR) 11/12/21 11/12/21 04:01 04:01 WBC 10.27 RBC 4.68 Hgb 14.4 Hct 42.6 MCV 91 MCH 30.8 MCHC 33.8 RDW 13.4 Plt Count 326 MPV 10.4 Immature Gran % 0.6 Neutrophils % 78.7 Lymphocytes % 14.2 Monocytes % 5.7 Eosinophils % 0.2 Basophils % 0.6 Nucleated RBC % 0.0 Absolute Neutrophils 8.08 H Absolute Lymphocytes 1.46 Absolute Monocytes 0.59 Absolute Eosinophils 0.02 Absolute Basophils 0.06 RBC Morphology PT 11.6 H INR 1.2 H VBG Lactate Sodium Potassium Chloride Carbon Dioxide Anion Gap BUN Creatinine Estimated GFR/1.73 m2 Glucose Calcium Magnesium Ferritin Total Bilirubin AST ALT Alkaline Phosphatase Troponin I NT-Pro-B Natriuret Pep Total Protein Albumin Lipase Procalcitonin TSH Free T4 Urine Color Urine Clarity Urine pH Ur Specific [place] Urine Protein Urine Ketones Urine Blood Urine Nitrite Urine Bilirubin Urine Urobilinogen Ur Leukocyte Esterase Urine Glucose COVID-19 Source SARS-CoV-2 (PCR)
[2021-11-12 08:18] LABS: CREATININE 1.3 mg/dL (0.70-1.30)
[2021-11-12] MEDS: Budesonide/Formoterol 160/4.5 6 GM 60 PUFF INH IH ×2 (09:05→19:40)
[2021-11-12] MEDS: FLUoxetine 20 MG CAP 60 MG PO (09:08)
[2021-11-12] MEDS: Atorvastatin 40 MG TAB 80 MG PO (09:08)
[2021-11-12] MEDS: Baclofen 10 MG TAB PO ×2 (09:08→19:38)
[2021-11-12] MEDS: Aspirin 81 MG CHEW PO (09:08)
[2021-11-12] MEDS: Normal Saline Flush 10 ML SYR IVP ×5 (09:09→23:05)
[2021-11-12] MEDS: Pantoprazole 40 MG VIAL IVP (09:09)
[2021-11-12] MEDS: Hydrocortisone SOD SUC. 100 MG VIAL IVP (09:15)
[2021-11-12] MEDS: Furosemide 20 MG/2 ML VIAL IVP ×2 (09:16→17:18)
--- NOTE | 2021-11-12 09:27 | INITIAL_ITS ---
- If Service Date Differs Date of service: 11/12/21 Time of Service: 09:27 Care Management Initial Assess REASON FOR HOSPITALIZATION:: Acute cholecystitis, CAD, Sarcoid, Pleural effusion, Anemia, Acute epididymitis PAST MEDICAL HISTORY/PAST SURGICAL HISTORY:: All Active Problems (Updated 11/12/21 @ 06:53 by Naga Hernandez). Acute epididymitis (Acute). Atypical chest pain (Acute). CAD (coronary artery disease), [place] coronary artery (Acute). Anemia (Chronic). Status post lumbar laminectomy (Acute). DJD (degenerative joint disease), lumbar (Acute). Mediastinal adenopathy (Acute). Sarcoid (Acute). Chronic GERD (Acute). Elevated brain natriuretic peptide (BNP) level (Acute). Enlarged heart (Acute). Pleural effusion, right (Acute). Acute cholecystitis (Acute) PREVIOUS FUNCTIONAL STATUS/SOCIAL/FAMILY SUPPORTS:: Chriss is admitted to [facility]. His will be accompanied by correctional guards throughout this admission. CURRENT FUNCTIONAL STATUS:: Chriss requires additional medical workup, testing and close monitoring. He is being followed by [facility], consulting providers are Urology, Pulmonolgy and Cardiology. ADVANCE DIRECTIVES:: None on file. Has patient been provided with info about the portal/API?: Yes Did the patient sign up for the portal?: No CODE STATUS:: Full Code INSURANCE COVERAGE / FINANCIAL ISSUES:: [facility] PRIMARY CARE PHYSICIAN:: Jared Glez POTENTIAL DISCHARGE NEEDS:: Pulmonology followup, PFT's. Cardiology followup, ECHO and MANUEL. PATIENT/FAMILY EDUCATION NEEDS:: Review discharge instructions, limitations, medications and plan to follow up with community providers. ask me three. TRANSPORTATION:: [facility] to transport. PLAN:: Anticipate, Chriss will discharge back to [facility] when medically ready per provider. [facility] will arrange transportation. Chriss will follow up with community providers and discharge plan of care as prescribed.
--- NOTE | 2021-11-12 09:43 | CCONE_ITS ---
Date of service: 11/12/21 Time of Service: 09:43 Assessment and Plan Assessment and plan (1) Atypical chest pain: Status: Acute Assessment and plan: Patient's chest pain is described does not suggest a cardiac etiology. It is prolonged and there is no evidence of myocardial necrosis (2) CAD (coronary artery disease), [place] coronary artery: Status: Acute Assessment and plan: Remote CAD with stenting. Patient does not have symptoms concerning for angina I would await an echocardiogram. At present I see no indication for stress testing (3) Pleural effusion, right: Status: Acute Assessment and plan: This may or may not represent heart failure. It could be related to his acute cholecystitis. He needs an echocardiogram but this is not available until next Monday (4) Acute cholecystitis: Status: Acute History of Present Illness History of Present Illness Chief Complaint: Chest and abdominal pain Narrative: Cardiac evaluation is requested in this 56-year-old man who was brought to the hospital because of persistent chest discomfort. Patient is currently incarcerated and apparently was experiencing discomfort in the chest for a week or 2. In the emergency room he was found to have no evidence of myocardial necrosis, but did have a CT of the chest and abdomen which showed bilateral pleural effusions right greater than left, mediastinal adenopathy, and evidence of acute cholecystitis Patient is a fair historian. He reports that about 20 years ago he was at [facility] and had stents placed. These reports are not available Last records from [facility] are from 2018 when he was evaluated for sarcoid. EKG currently shows sinus rhythm with atrial premature beats, IVCD like an incomplete left bundle branch block, voltage for left ventricular hypertrophy . they are similar to EKGs from 2018 at [facility] Review of Systems Cardiovascular Cardiovascular: Reports as per HPI, Reports chest pain at rest, Denies leg edema, Reports dyspnea on exertion, Denies orthopnea and Denies paroxysmal nocturnal dyspnea Respiratory Respiratory: Reports dyspnea on exertion PFSH All Active Problems (Updated 11/12/21 @ 06:53 by Naga Hernandez) Acute epididymitis (Acute) Atypical chest pain (Acute) CAD (coronary artery disease), [place] coronary artery (Acute) Anemia (Chronic) Status post lumbar laminectomy (Acute) DJD (degenerative joint disease), lumbar (Acute) Mediastinal adenopathy (Acute) Sarcoid (Acute) Chronic GERD (Acute) Elevated brain natriuretic peptide (BNP) level (Acute) Enlarged heart (Acute) Pleural effusion, right (Acute) Acute cholecystitis (Acute) Social History Smoking/Tobacco Use Status: Former Tobacco Use Smoking risk assessment performed?: Yes Alcohol Intake: former Substance use type: does not use Do you feel safe at home: Yes Do you feel safe in your relationship?: Yes Exam Const Other: Well-developed well-nourished lying flat in no acute distress Neck Other: No neck vein distention normal carotid upstrokes no bruits Resp Other: Limited exam, mildly decreased breath sounds at the right base Cardio Other: Heart is regular normal S1-S2 physiologically split no murmur or gallop Extrem Other: No significant edema Results Last Vital Signs Temp 36.2 C L 11/12/21 07:57 Pulse 99 H 11/12/21 07:57 Resp 19 11/12/21 07:57 BP 131/91 H 11/12/21 07:57 Pulse Ox 91 L 11/12/21 07:57 Labs Result diagrams: 11/12/21 04:01 11/12/21 05:35 Labs: Laboratory Results - last 24 hr 11/11/21 11/11/21 11/11/21 16:40 16:40 16:40 WBC 13.07 H RBC 4.25 L Hgb 13.3 L Hct 38.9 L MCV 92 MCH 31.3 MCHC 34.2 RDW 13.3 Plt Count 313 MPV 11.0 Immature Gran % 0.0 Neutrophils % 63.0 Lymphocytes % 31.0 Monocytes % 6.0 Eosinophils % 0.0 Basophils % 0.0 Nucleated RBC % 0.0 Absolute Neutrophils 8.23 H Absolute Lymphocytes 4.05 H Absolute Monocytes 0.78 Absolute Eosinophils 0.00 Absolute Basophils 0.00 RBC Morphology Normal PT 12.0 H INR 1.2 H VBG Lactate Sodium Cancelled Potassium Cancelled Chloride Cancelled Carbon Dioxide Cancelled Anion Gap Cancelled BUN Cancelled Creatinine Cancelled Estimated GFR/1.73 m2 Cancelled Glucose Cancelled Calcium Cancelled Magnesium Cancelled Ferritin Total Bilirubin Cancelled AST Cancelled ALT Cancelled Alkaline Phosphatase Cancelled Troponin I Cancelled C-Reactive Protein NT-Pro-B Natriuret Pep Cancelled Total Protein Cancelled Albumin Cancelled Lipase Procalcitonin TSH Free T4 Urine Color Urine Clarity Urine pH Ur Specific [place] Urine Protein Urine Ketones Urine Blood Urine Nitrite Urine Bilirubin Urine Urobilinogen Ur Leukocyte Esterase Urine Glucose COVID-19 Source SARS-CoV-2 (PCR) 11/11/21 11/11/21 11/11/21 17:17 17:40 19:23 WBC RBC Hgb Hct MCV MCH MCHC RDW Plt Count MPV Immature Gran % Neutrophils % Lymphocytes % Monocytes % Eosinophils % Basophils % Nucleated RBC % Absolute Neutrophils Absolute Lymphocytes Absolute Monocytes Absolute Eosinophils Absolute Basophils RBC Morphology PT INR VBG Lactate Sodium 137 Potassium 4.3 Chloride 102 Carbon Dioxide 24.2 Anion Gap 10.8 BUN 23 H Creatinine 1.4 H Estimated GFR/1.73 m2 52.05 Glucose 109 H Calcium 8.8 Magnesium 1.7 L Ferritin Total Bilirubin 1.2 H AST 31 ALT 35 Alkaline Phosphatase 111 Troponin I < 50 C-Reactive Protein NT-Pro-B Natriuret Pep 8917 H Total Protein 7.1 Albumin 3.5 Lipase Procalcitonin TSH Free T4 Urine Color Yellow Urine Clarity Clear Urine pH 5.5 Ur Specific [place] 1.025 Urine Protein Negative Urine Ketones Negative Urine Blood Negative Urine Nitrite Negative Urine Bilirubin Negative Urine Urobilinogen 1.0 H Ur Leukocyte Esterase Negative Urine Glucose Negative COVID-19 Source Nasal/Nares SARS-CoV-2 (PCR) Negative 11/11/21 11/11/21 11/11/21 19:45 19:45 21:27 WBC RBC Hgb Hct MCV MCH MCHC RDW Plt Count MPV Immature Gran % Neutrophils % Lymphocytes % Monocytes % Eosinophils % Basophils % Nucleated RBC % Absolute Neutrophils Absolute Lymphocytes Absolute Monocytes Absolute Eosinophils Absolute Basophils RBC Morphology PT INR VBG Lactate 1.5 H Sodium Potassium Chloride Carbon Dioxide Anion Gap BUN Creatinine Estimated GFR/1.73 m2 Glucose Calcium Magnesium Ferritin Total Bilirubin AST ALT Alkaline Phosphatase Troponin I < 50 C-Reactive Protein NT-Pro-B Natriuret Pep Total Protein Albumin Lipase 29 Procalcitonin TSH Free T4 Urine Color Urine Clarity Urine pH Ur Specific [place] Urine Protein Urine Ketones Urine Blood Urine Nitrite Urine Bilirubin Urine Urobilinogen Ur Leukocyte Esterase Urine Glucose COVID-19 Source SARS-CoV-2 (PCR) 11/11/21 11/12/21 11/12/21 21:27 04:01 04:01 WBC RBC Hgb Hct MCV MCH MCHC RDW Plt Count MPV Immature Gran % Neutrophils % Lymphocytes % Monocytes % Eosinophils % Basophils % Nucleated RBC % Absolute Neutrophils Absolute Lymphocytes Absolute Monocytes Absolute Eosinophils Absolute Basophils RBC Morphology PT INR VBG Lactate Sodium Potassium Chloride Carbon Dioxide Anion Gap BUN Creatinine Estimated GFR/1.73 m2 Glucose Calcium Magnesium Ferritin 74 Total Bilirubin AST ALT Alkaline Phosphatase Troponin I < 50 C-Reactive Protein NT-Pro-B Natriuret Pep Total Protein Albumin Lipase Procalcitonin < 0.1 TSH 7.88 H Free T4 1.26 Urine Color Urine Clarity Urine pH Ur Specific [place] Urine Protein Urine Ketones Urine Blood Urine Nitrite Urine Bilirubin Urine Urobilinogen Ur Leukocyte Esterase Urine Glucose COVID-19 Source SARS-CoV-2 (PCR) 11/12/21 11/12/21 11/12/21 04:01 04:01 05:35 WBC 10.27 RBC 4.68 Hgb 14.4 Hct 42.6 MCV 91 MCH 30.8 MCHC 33.8 RDW 13.4 Plt Count 326 MPV 10.4 Immature Gran % 0.6 Neutrophils % 78.7 Lymphocytes % 14.2 Monocytes % 5.7 Eosinophils % 0.2 Basophils % 0.6 Nucleated RBC % 0.0 Absolute Neutrophils 8.08 H Absolute Lymphocytes 1.46 Absolute Monocytes 0.59 Absolute Eosinophils 0.02 Absolute Basophils 0.06 RBC Morphology PT 11.6 H INR 1.2 H VBG Lactate Sodium 136 Potassium 4.2 Chloride 99 Carbon Dioxide 19.7 L Anion Gap 17.3 H BUN 21 H Creatinine 1.3 Estimated GFR/1.73 m2 56.70 Glucose 141 H Calcium 9.0 Magnesium 2.1 Ferritin Total Bilirubin 1.5 H AST 13 L ALT 36 Alkaline Phosphatase 127 H Troponin I C-Reactive Protein 1.69 H NT-Pro-B Natriuret Pep 8441 H Total Protein 7.9 Albumin 4.0 Lipase 25 Procalcitonin TSH Free T4 Urine Color Urine Clarity Urine pH Ur Specific [place] Urine Protein Urine Ketones Urine Blood Urine Nitrite Urine Bilirubin Urine Urobilinogen Ur Leukocyte Esterase Urine Glucose COVID-19 Source SARS-CoV-2 (PCR)
--- NOTE | 2021-11-12 11:23 | PUCON_ITS ---
General Date Of Service Date of service: 11/12/21 Time of Service: 13:41 Reason for Consult: Mediastinal LAD Pleural effusion Sarcoid Assessment and Plan Assessment and plan (1) CAD (coronary artery disease), [place] coronary artery: Status: Acute (2) Sarcoid: Status: Acute (3) CHF (congestive heart failure): Status: Chronic (4) COPD suggested by initial evaluation: Status: Acute Assessment and plan: This is a 56 yo man with a significant CAD history and sarcoidosis diagnosed 15 years ago. He has nodular parenchymal infiltrates that are consistent with sarcoidosis. He should have outpatient evaluation for this. Sarcoidosis is exceedingly rare to come back after 2 years of remission, so having symtpoms this far out would be very atypical. The pleural effusions are most likely due to his heart failure. I believe this due to his grossly elevated bnp, his bedside POCUS findings, history and that they are bilateral. I do not see an indication for these to be tapped. It seems very likely that he has COPD given his smoking history and symptoms. He is currently on Symbicort, which is appropriate, but will also add Spiriva to this regimen. He is not in exacerbation and again he should have pulmonary work up for this as an outpatient. Sarcoidosis - recommend outpatient pulmonary care Likely COPD -continue Symbicort - rinse mouth after use - add Spiriva - recommend he be discharged with this - outpatient PFT's and pulmonary care Pleural effusions - likely secondary to CHF - I see no indication for sampling CHF - agree with formal TTE on Monday, but my bedside exam shows a significantly reduced EF - recommend continued diuresis with a goal 1-2 L negative in 24 hours History of Present Illness Narrative: This is a 56 yo man who is admitted for acute cholecystitis and who I was consulted on for a history of sarcoidosis and mediastinal LAD. He tells me that his sarcoidosis was diagnosed 15-20 years ago via biopsy at [facility]. He was treated with Pulmicort and remained on this and albuterol. He has not have PFT's completed previously. He does have a significant smoking history or 30 pack years but has not smoked in 3 months as he is in alf. He does have nodular infiltrates on his Chest CT in addition to enlarged lymph nodes and bilateral pleural effusions. His bnp is extremely elevated. There is no echo available here today (not until Monday) so I completed a bedside POCUS which found a significantly reduced EF (approx 20-25%). He describes chronic shortness of breath with exertion particularly. He also tells me he has had 3 stents placed in the past. Review of Systems All systems reviewed & are unremarkable except as noted in HPI and below PFSH All Active Problems (Updated 11/12/21 @ 13:56 by Stephenie Soto MD) COPD suggested by initial evaluation (Acute) CHF (congestive heart failure) (Chronic) Scrotal pain (Acute) Acute epididymitis (Acute) Atypical chest pain (Acute) CAD (coronary artery disease), [place] coronary artery (Acute) Anemia (Chronic) Status post lumbar laminectomy (Acute) DJD (degenerative joint disease), lumbar (Acute) Mediastinal adenopathy (Acute) Sarcoid (Acute) Chronic GERD (Acute) Elevated brain natriuretic peptide (BNP) level (Acute) Enlarged heart (Acute) Pleural effusion, right (Acute) Acute cholecystitis (Acute) Social History Smoking/Tobacco Use Status: Former Tobacco Use Smoking risk assessment performed?: Yes Alcohol Intake: former Substance use type: does not use Do you feel safe at home: Yes Do you feel safe in your relationship?: Yes Visit Medication and Allergies Active Medications Generic Name Dose Route Start Last Admin Trade Name Freq PRN Reason Stop Dose Admin Acetaminophen 650 mg 11/11/21 21:55 11/12/21 03:02 Acetaminophen 325 Mg Tab PO 650 mg Q4H PRN PRN Administration Al Hydrox/Mg Hydrox/Simethicone 30 ml 11/11/21 22:00 Mylanta Suspension 30 Ml Cup PO Q2H PRN PRN Albuterol Sulfate 2.5 mg 11/11/21 21:55 Albuterol 2.5 Mg/3 Ml Inh Soln Vial UPD Q2H PRN PRN Albuterol/Ipratropium 3 ml 11/11/21 22:00 11/12/21 03:02 Albuterol/Ipratropium 3 Ml Upd Vial UPD 3 ml Q6H ROSARIO Administration Aspirin 81 mg 11/11/21 22:20 11/12/21 09:08 Aspirin 81 Mg Chew PO 81 mg DAILY ROSARIO Administration Atorvastatin Calcium 80 mg 11/12/21 08:30 11/12/21 09:08 Atorvastatin 40 Mg Tab PO 80 mg DAILY ROSARIO Administration Baclofen 10 mg 11/12/21 08:30 11/12/21 09:08 Baclofen 10 Mg Tab PO 10 mg BID ROSARIO Administration Budesonide/Formoterol Fumarate 2 puff 11/12/21 08:30 11/12/21 09:05 Budesonide/Formoterol 160/4.5 6 Gm 60 Puff Inh IH 2 puffs BID [facility] Administration Dimethicone/Zinc Oxide 0 gm 11/11/21 21:55 Nicole Protect Cream 142 Gm Tube TP PRN PRN Docusate Sodium 100 mg 11/11/21 21:55 Docusate Sodium 100 Mg Cap PO TID PRN PRN Fluoxetine HCl 60 mg 11/12/21 08:30 11/12/21 09:08 Fluoxetine 20 Mg Cap PO 60 mg DAILY [facility] Administration Furosemide 20 mg 11/12/21 08:00 11/12/21 09:16 Furosemide 20 Mg/2 Ml Vial IVP 20 mg BID@0800,1600 [facility] Administration Hydrocortisone 50 mg 11/12/21 16:00 Hydrocortisone Sod Suc. 100 Mg Vial IVP Q8H [facility] Hydroxyzine HCl 25 mg 11/11/21 22:17 Hydroxyzine Hcl 25 Mg Tab PO TID PRN PRN Sodium Chloride 500 mls @ 0 mls/hr 11/11/21 21:55 Saline 500ml Bag IV PRN PRN As Directed Piperacillin Sod/Tazobactam 50 mls @ 12.5 mls/hr 11/12/21 06:00 11/12/21 06:33 Sod 3.375 gm/ Sodium Chloride IVPB 12.5 mls/hr Q8H [facility] Administration Protocol Doxycycline Hyclate 100 mg/ 100 mls @ 100 mls/hr 11/12/21 08:00 Sodium Chloride IVPB Q12H [facility] IV Miscellaneous Supplies 1 each 11/11/21 22:00 Iv Access IV DIRECTED [facility] Ketorolac Tromethamine 15 mg 11/12/21 06:50 Ketorolac 15 Mg/Ml Vial IVP 11/17/21 06:49 Q6H PRN PRN Magnesium Hydroxide 30 ml 11/11/21 21:55 Milk Of Magnesia 30 Ml Cup PO DAILY PRN PRN Nitroglycerin 0.4 mg 11/11/21 16:52 11/11/21 23:57 Nitroglycerin 0.4 Mg Tab SL 0.4 mg Q5 MIN PRN X3 PRN Administration Pantoprazole Sodium 40 mg 11/12/21 08:30 11/12/21 09:09 Pantoprazole 40 Mg Vial IVP 40 mg DAILY ROSARIO Administration Polyethylene Glycol 17 gm 11/11/21 21:55 Polyethylene Glycol 3350 17 Gm Packet PO DAILY PRN PRN Constipation Sodium Chloride 0 ml 11/11/21 21:55 11/12/21 09:09 Normal Saline Flush 10 Ml Syr IVP 20 ml PRN PRN Administration Allergies streptomycin Allergy (Severe, Unverified 11/11/21 16:41) Swelling/Edema pregabalin [From Lyrica] Allergy (Unverified 11/11/21 16:41) Exam Narrative Exam Narrative: Cardiac POCUS: paraseptal long axis, paraseptal short axis, apical 4 chamber and subxyphoid views all good quality. Poor left and right ventricular contractility with a low EF (probably 20-25%). Evidence of volume overload with RV dilation. IVC enlarged (>2cm) and minimal size decrease with inspiration. No pericardial effusion. Gen: NAD, normal respiratory effort, well-nourished HENT: PERRL, nasal turbinates normal without erythema or inflammation, moist oral mucosa, Mallampati 2, No LAD. +JVD Chest: No respiratory distress, normal appearance of chest, clear to auscult ation bilaterally, no crackles or wheezes, normal inspiratory effort Heart: regular rate and rhythym, no murmurs, rubs or gallops Abdomen: Non-distended, soft, non tender Extremities: No clubbing, edema, cyanosis, rashes Neuro: AAOx3 , non focal Psych: cooperative, appropriate mental affect Results Last Vital Signs Temp 36.2 C L 11/12/21 07:57 Pulse 99 H 11/12/21 07:57 Resp 19 11/12/21 07:57 BP 131/91 H 11/12/21 07:57 Pulse Ox 91 L 11/12/21 07:57 Labs Result diagrams: 11/12/21 04:01 11/12/21 05:35 Labs: Laboratory Results - last 24 hr 11/11/21 11/11/21 11/11/21 16:40 16:40 16:40 WBC 13.07 H RBC 4.25 L Hgb 13.3 L Hct 38.9 L MCV 92 MCH 31.3 MCHC 34.2 RDW 13.3 Plt Count 313 MPV 11.0 Immature Gran % 0.0 Neutrophils % 63.0 Lymphocytes % 31.0 Monocytes % 6.0 Eosinophils % 0.0 Basophils % 0.0 Nucleated RBC % 0.0 Absolute Neutrophils 8.23 H Absolute Lymphocytes 4.05 H Absolute Monocytes 0.78 Absolute Eosinophils 0.00 Absolute Basophils 0.00 RBC Morphology Normal PT 12.0 H INR 1.2 H VBG Lactate Sodium Cancelled Potassium Cancelled Chloride Cancelled Carbon Dioxide Cancelled Anion Gap Cancelled BUN Cancelled Creatinine Cancelled Estimated GFR/1.73 m2 Cancelled Glucose Cancelled Calcium Cancelled Magnesium Cancelled Ferritin Total Bilirubin Cancelled AST Cancelled ALT Cancelled Alkaline Phosphatase Cancelled Troponin I Cancelled C-Reactive Protein NT-Pro-B Natriuret Pep Cancelled Total Protein Cancelled Albumin Cancelled Lipase Procalcitonin TSH Free T4 Urine Color Urine Clarity Urine pH Ur Specific [place] Urine Protein Urine Ketones Urine Blood Urine Nitrite Urine Bilirubin Urine Urobilinogen Ur Leukocyte Esterase Urine Glucose COVID-19 Source SARS-CoV-2 (PCR) 11/11/21 11/11/21 11/11/21 17:17 17:40 19:23 WBC RBC Hgb Hct MCV MCH MCHC RDW Plt Count MPV Immature Gran % Neutrophils % Lymphocytes % Monocytes % Eosinophils % Basophils % Nucleated RBC % Absolute Neutrophils Absolute Lymphocytes Absolute Monocytes Absolute Eosinophils Absolute Basophils RBC Morphology PT INR VBG Lactate Sodium 137 Potassium 4.3 Chloride 102 Carbon Dioxide 24.2 Anion Gap 10.8 BUN 23 H Creatinine 1.4 H Estimated GFR/1.73 m2 52.05 Glucose 109 H Calcium 8.8 Magnesium 1.7 L Ferritin Total Bilirubin 1.2 H AST 31 ALT 35 Alkaline Phosphatase 111 Troponin I < 50 C-Reactive Protein NT-Pro-B Natriuret Pep 8917 H Total Protein 7.1 Albumin 3.5 Lipase Procalcitonin TSH Free T4 Urine Color Yellow Urine Clarity Clear Urine pH 5.5 Ur Specific [place] 1.025 Urine Protein Negative Urine Ketones Negative Urine Blood Negative Urine Nitrite Negative Urine Bilirubin Negative Urine Urobilinogen 1.0 H Ur Leukocyte Esterase Negative Urine Glucose Negative COVID-19 Source Nasal/Nares SARS-CoV-2 (PCR) Negative 11/11/21 11/11/21 11/11/21 19:45 19:45 21:27 WBC RBC Hgb Hct MCV MCH MCHC RDW Plt Count MPV Immature Gran % Neutrophils % Lymphocytes % Monocytes % Eosinophils % Basophils % Nucleated RBC % Absolute Neutrophils Absolute Lymphocytes Absolute Monocytes Absolute Eosinophils Absolute Basophils RBC Morphology PT INR VBG Lactate 1.5 H Sodium Potassium Chloride Carbon Dioxide Anion Gap BUN Creatinine Estimated GFR/1.73 m2 Glucose Calcium Magnesium Ferritin Total Bilirubin AST ALT Alkaline Phosphatase Troponin I < 50 C-Reactive Protein NT-Pro-B Natriuret Pep Total Protein Albumin Lipase 29 Procalcitonin TSH Free T4 Urine Color Urine Clarity Urine pH Ur Specific [place] Urine Protein Urine Ketones Urine Blood Urine Nitrite Urine Bilirubin Urine Urobilinogen Ur Leukocyte Esterase Urine Glucose COVID-19 Source SARS-CoV-2 (PCR) 11/11/21 11/11/21 11/12/21 21:27 21:50 04:01 WBC RBC Hgb Hct MCV MCH MCHC RDW Plt Count MPV Immature Gran % Neutrophils % Lymphocytes % Monocytes % Eosinophils % Basophils % Nucleated RBC % Absolute Neutrophils Absolute Lymphocytes Absolute Monocytes Absolute Eosinophils Absolute Basophils RBC Morphology PT INR VBG Lactate Sodium Potassium Chloride Carbon Dioxide Anion Gap BUN Creatinine Estimated GFR/1.73 m2 Glucose Calcium Magnesium Ferritin 74 Total Bilirubin AST ALT Alkaline Phosphatase Troponin I < 50 C-Reactive Protein NT-Pro-B Natriuret Pep Total Protein Albumin Lipase Procalcitonin TSH 7.88 H Free T4 1.26 Urine Color Cancelled Urine Clarity Cancelled Urine pH Cancelled Ur Specific [place] Cancelled Urine Protein Cancelled Urine Ketones Cancelled Urine Blood Cancelled Urine Nitrite Cancelled Urine Bilirubin Cancelled Urine Urobilinogen Cancelled Ur Leukocyte Esterase Cancelled Urine Glucose Cancelled COVID-19 Source SARS-CoV-2 (PCR) 11/12/21 11/12/21 11/12/21 04:01 04:01 04:01 WBC 10.27 RBC 4.68 Hgb 14.4 Hct 42.6 MCV 91 MCH 30.8 MCHC 33.8 RDW 13.4 Plt Count 326 MPV 10.4 Immature Gran % 0.6 Neutrophils % 78.7 Lymphocytes % 14.2 Monocytes % 5.7 Eosinophils % 0.2 Basophils % 0.6 Nucleated RBC % 0.0 Absolute Neutrophils 8.08 H Absolute Lymphocytes 1.46 Absolute Monocytes 0.59 Absolute Eosinophils 0.02 Absolute Basophils 0.06 RBC Morphology PT 11.6 H INR 1.2 H VBG Lactate Sodium Potassium Chloride Carbon Dioxide Anion Gap BUN Creatinine Estimated GFR/1.73 m2 Glucose Calcium Magnesium Ferritin Total Bilirubin AST ALT Alkaline Phosphatase Troponin I C-Reactive Protein NT-Pro-B Natriuret Pep Total Protein Albumin Lipase Procalcitonin < 0.1 TSH Free T4 Urine Color Urine Clarity Urine pH Ur Specific [place] Urine Protein Urine Ketones Urine Blood Urine Nitrite Urine Bilirubin Urine Urobilinogen Ur Leukocyte Esterase Urine Glucose COVID-19 Source SARS-CoV-2 (PCR) 11/12/21 05:35 WBC RBC Hgb Hct MCV MCH MCHC RDW Plt Count MPV Immature Gran % Neutrophils % Lymphocytes % Monocytes % Eosinophils % Basophils % Nucleated RBC % Absolute Neutrophils Absolute Lymphocytes Absolute Monocytes Absolute Eosinophils Absolute Basophils RBC Morphology PT INR VBG Lactate Sodium 136 Potassium 4.2 Chloride 99 Carbon Dioxide 19.7 L Anion Gap 17.3 H BUN 21 H Creatinine 1.3 Estimated GFR/1.73 m2 56.70 Glucose 141 H Calcium 9.0 Magnesium 2.1 Ferritin Total Bilirubin 1.5 H AST 13 L ALT 36 Alkaline Phosphatase 127 H Troponin I C-Reactive Protein 1.69 H NT-Pro-B Natriuret Pep 8441 H Total Protein 7.9 Albumin 4.0 Lipase 25 Procalcitonin TSH Free T4 Urine Color Urine Clarity Urine pH Ur Specific [place] Urine Protein Urine Ketones Urine Blood Urine Nitrite Urine Bilirubin Urine Urobilinogen Ur Leukocyte Esterase Urine Glucose COVID-19 Source SARS-CoV-2 (PCR)
[2021-11-12] MEDS: DOXYCYCLINE 100 MG in Normal Saline 100 ML IVPB (12:26)
--- NOTE | 2021-11-12 16:36 | PGE_ITS ---
Date of Service Date of service: 11/12/21 Time of Service: 16:37 Assessment and Plan Assessment and plan (1) Acute on chronic systolic CHF (congestive heart failure): Status: Acute Assessment and plan: POCUS LVEF is close to 25%, per Dr Soto. I will research to see if he had any other echos. Continue IV furosemide, monitoring I/os and daily weights. (2) Acute cholecystitis: Status: Suspected Assessment and plan: Await read of the RUQ US. Continue empiric zosyn. (3) Bilateral pleural effusion: Status: Acute Assessment and plan: Likely due to CHF. Diuresis as above. (4) Atypical chest pain: Status: Acute Assessment and plan: Ruled out for ACS. Continue antiinflammatories (has both hydrocortieone and toradol written). For echo on Monday. Continue to monitor on tele. (5) COPD (chronic obstructive pulmonary disease): Status: Chronic Assessment and plan: Not in acute exacerbation. As above - seen by pulmonology. Franki added. (6) CAD (coronary artery disease), [place] coronary artery: Status: Chronic Assessment and plan: H/o cardiac cath/stents. Current CP, though, is not felt to be cardiac in nature. (7) Sarcoid: Status: Chronic Assessment and plan: Follow up with pulmonary as outpatient. The likely cause of his lymphadenopathy. (8) Scrotal pain: Status: Acute Assessment and plan: Evaluated by urology. Not felt to be infectious in nature. Treat with antiinflammatories. D/c doxycycline. (9) Thoracic lymphadenopathy: Status: Chronic Assessment and plan: I suspect that this is chronic and due to sarcoidosis. Follow upa s outpatient. (10) DVT prophylaxis: Status: Acute Assessment and plan: SCDs in anticipation of possible surgery, but if not happening over the weekend, would start chemical DVT ppx. (11) Discharge planning issues: Status: Acute Assessment and plan: Full code Continues to require hospitalization. Subjective Subjective Interval history since last seen: Mr Smith denies any abdominal pain. He is not nauseated. He has some L-sided chest discomfort. States his shortness of breath is much better than it has been in a long time. Denies dizziness. Was evaluated by cardiology: CP is not felt to be cardiac. Requires an echo. No indications for a stress test. He was seen by urology: etiology of scrotal pain is not infectious - no additional abx are required for this. Seen by pulmonology: has sarcoidosis and pleural effusions due to CHF. Recommended spiriva in addition to symbicort as well as diuresis. Exam Narrative Exam Narrative: General: Pleasant middle-aged male who appears comfortable laying nearly flat in bed on RA, A&Ox3, NAD HEENT: EOMI, MMM Heart: RRR, no m/r/g Lungs: Diminished breath sounds at B bases Abdomen: soft, nontender, nondistended. No Phillips's sign. Extremities: no edema BLEs. Objective Last Vital Signs Temp 36.5 C 11/12/21 14:45 Pulse 100 H 11/12/21 15:00 Resp 17 11/12/21 14:45 BP 113/77 11/12/21 14:45 Pulse Ox 93 11/12/21 14:45 Laboratory Results - last 24 hr 11/11/21 11/11/21 11/11/21 16:40 16:40 16:40 WBC 13.07 H RBC 4.25 L Hgb 13.3 L Hct 38.9 L MCV 92 MCH 31.3 MCHC 34.2 RDW 13.3 Plt Count 313 MPV 11.0 Immature Gran % 0.0 Neutrophils % 63.0 Lymphocytes % 31.0 Monocytes % 6.0 Eosinophils % 0.0 Basophils % 0.0 Nucleated RBC % 0.0 Absolute Neutrophils 8.23 H Absolute Lymphocytes 4.05 H Absolute Monocytes 0.78 Absolute Eosinophils 0.00 Absolute Basophils 0.00 RBC Morphology Normal PT 12.0 H INR 1.2 H VBG Lactate Sodium Cancelled Potassium Cancelled Chloride Cancelled Carbon Dioxide Cancelled Anion Gap Cancelled BUN Cancelled Creatinine Cancelled Estimated GFR/1.73 m2 Cancelled Glucose Cancelled Calcium Cancelled Magnesium Cancelled Ferritin Total Bilirubin Cancelled AST Cancelled ALT Cancelled Alkaline Phosphatase Cancelled Troponin I Cancelled C-Reactive Protein NT-Pro-B Natriuret Pep Cancelled Total Protein Cancelled Albumin Cancelled Lipase Procalcitonin TSH Free T4 Urine Color Urine Clarity Urine pH Ur Specific [place] Urine Protein Urine Ketones Urine Blood Urine Nitrite Urine Bilirubin Urine Urobilinogen Ur Leukocyte Esterase Urine Glucose COVID-19 Source SARS-CoV-2 (PCR) 06/23/22 06/23/22 06/23/22 17:17 17:40 19:23 WBC RBC Hgb Hct MCV MCH MCHC RDW Plt Count MPV Immature Gran % Neutrophils % Lymphocytes % Monocytes % Eosinophils % Basophils % Nucleated RBC % Absolute Neutrophils Absolute Lymphocytes Absolute Monocytes Absolute Eosinophils Absolute Basophils RBC Morphology PT INR VBG Lactate Sodium 137 Potassium 4.3 Chloride 102 Carbon Dioxide 24.2 Anion Gap 10.8 BUN 23 H Creatinine 1.4 H Estimated GFR/1.73 m2 52.05 Glucose 109 H Calcium 8.8 Magnesium 1.7 L Ferritin Total Bilirubin 1.2 H AST 31 ALT 35 Alkaline Phosphatase 111 Troponin I < 50 C-Reactive Protein NT-Pro-B Natriuret Pep 8917 H Total Protein 7.1 Albumin 3.5 Lipase Procalcitonin TSH Free T4 Urine Color Yellow Urine Clarity Clear Urine pH 5.5 Ur Specific [place] 1.025 Urine Protein Negative Urine Ketones Negative Urine Blood Negative Urine Nitrite Negative Urine Bilirubin Negative Urine Urobilinogen 1.0 H Ur Leukocyte Esterase Negative Urine Glucose Negative COVID-19 Source Nasal/Nares SARS-CoV-2 (PCR) Negative 11/11/21 11/11/21 11/11/21 19:45 19:45 21:27 WBC RBC Hgb Hct MCV MCH MCHC RDW Plt Count MPV Immature Gran % Neutrophils % Lymphocytes % Monocytes % Eosinophils % Basophils % Nucleated RBC % Absolute Neutrophils Absolute Lymphocytes Absolute Monocytes Absolute Eosinophils Absolute Basophils RBC Morphology PT INR VBG Lactate 1.5 H Sodium Potassium Chloride Carbon Dioxide Anion Gap BUN Creatinine Estimated GFR/1.73 m2 Glucose Calcium Magnesium Ferritin Total Bilirubin AST ALT Alkaline Phosphatase Troponin I < 50 C-Reactive Protein NT-Pro-B Natriuret Pep Total Protein Albumin Lipase 29 Procalcitonin TSH Free T4 Urine Color Urine Clarity Urine pH Ur Specific [place] Urine Protein Urine Ketones Urine Blood Urine Nitrite Urine Bilirubin Urine Urobilinogen Ur Leukocyte Esterase Urine Glucose COVID-19 Source SARS-CoV-2 (PCR) 11/11/21 11/11/21 11/12/21 21:27 21:50 04:01 WBC RBC Hgb Hct MCV MCH MCHC RDW Plt Count MPV Immature Gran % Neutrophils % Lymphocytes % Monocytes % Eosinophils % Basophils % Nucleated RBC % Absolute Neutrophils Absolute Lymphocytes Absolute Monocytes Absolute Eosinophils Absolute Basophils RBC Morphology PT INR VBG Lactate Sodium Potassium Chloride Carbon Dioxide Anion Gap BUN Creatinine Estimated GFR/1.73 m2 Glucose Calcium Magnesium Ferritin 74 Total Bilirubin AST ALT Alkaline Phosphatase Troponin I < 50 C-Reactive Protein NT-Pro-B Natriuret Pep Total Protein Albumin Lipase Procalcitonin TSH 7.88 H Free T4 1.26 Urine Color Cancelled Urine Clarity Cancelled Urine pH Cancelled Ur Specific [place] Cancelled Urine Protein Cancelled Urine Ketones Cancelled Urine Blood Cancelled Urine Nitrite Cancelled Urine Bilirubin Cancelled Urine Urobilinogen Cancelled Ur Leukocyte Esterase Cancelled Urine Glucose Cancelled COVID-19 Source SARS-CoV-2 (PCR) 11/12/21 11/12/21 11/12/21 04:01 04:01 04:01 WBC 10.27 RBC 4.68 Hgb 14.4 Hct 42.6 MCV 91 MCH 30.8 MCHC 33.8 RDW 13.4 Plt Count 326 MPV 10.4 Immature Gran % 0.6 Neutrophils % 78.7 Lymphocytes % 14.2 Monocytes % 5.7 Eosinophils % 0.2 Basophils % 0.6 Nucleated RBC % 0.0 Absolute Neutrophils 8.08 H Absolute Lymphocytes 1.46 Absolute Monocytes 0.59 Absolute Eosinophils 0.02 Absolute Basophils 0.06 RBC Morphology PT 11.6 H INR 1.2 H VBG Lactate Sodium Potassium Chloride Carbon Dioxide Anion Gap BUN Creatinine Estimated GFR/1.73 m2 Glucose Calcium Magnesium Ferritin Total Bilirubin AST ALT Alkaline Phosphatase Troponin I C-Reactive Protein NT-Pro-B Natriuret Pep Total Protein Albumin Lipase Procalcitonin < 0.1 TSH Free T4 Urine Color Urine Clarity Urine pH Ur Specific [place] Urine Protein Urine Ketones Urine Blood Urine Nitrite Urine Bilirubin Urine Urobilinogen Ur Leukocyte Esterase Urine Glucose COVID-19 Source SARS-CoV-2 (PCR) 11/12/21 05:35 WBC RBC Hgb Hct MCV MCH MCHC RDW Plt Count MPV Immature Gran % Neutrophils % Lymphocytes % Monocytes % Eosinophils % Basophils % Nucleated RBC % Absolute Neutrophils Absolute Lymphocytes Absolute Monocytes Absolute Eosinophils Absolute Basophils RBC Morphology PT INR VBG Lactate Sodium 136 Potassium 4.2 Chloride 99 Carbon Dioxide 19.7 L Anion Gap 17.3 H BUN 21 H Creatinine 1.3 Estimated GFR/1.73 m2 56.70 Glucose 141 H Calcium 9.0 Magnesium 2.1 Ferritin Total Bilirubin 1.5 H AST 13 L ALT 36 Alkaline Phosphatase 127 H Troponin I C-Reactive Protein 1.69 H NT-Pro-B Natriuret Pep 8441 H Total Protein 7.9 Albumin 4.0 Lipase 25 Procalcitonin TSH Free T4 Urine Color Urine Clarity Urine pH Ur Specific [place] Urine Protein Urine Ketones Urine Blood Urine Nitrite Urine Bilirubin Urine Urobilinogen Ur Leukocyte Esterase Urine Glucose COVID-19 Source SARS-CoV-2 (PCR) Objective Narrative Objective Narrative: US abdomen: read pending.
--- NOTE | 2021-11-12 16:45 | W.PM.PROGNOT ---
Date of Service Date of service: 11/12/21 Time of Service: 12:11 Assessment and Plan Assessment and plan (1) Acute cholecystitis: Status: Suspected Assessment and plan: -No evidence of acute cholecystitis on abdominal ultrasound; normal gallbladder wall thickness, CBD and no pericholecystic fluid -OK to resume diet -Rule out ACS, cardiology following -Formal echo pending -Will sign off please call with questions or concerns (2) Acute on chronic systolic CHF (congestive heart failure): Status: Acute (3) COPD suggested by initial evaluation: Status: Acute (4) Atypical chest pain: Status: Acute Subjective Subjective Patient reports: no new complaints, feels better and afebrile; denies nausea or vomiting Exam Const General: cooperative, healthy appearing, comfortable and no acute distress Nutritional Appearance: average body habitus Resp Effort & Inspection: normal respiratory effort and able to speak in complete sentences Cardio Rate: regular rate Rhythm: regular rhythm GI Inspection: normal to inspection and non-distended Palpation: soft, not firm, no guarding and nontender Percussion: normal to percussion Skin General skin exam: no rashes or lesions noted Objective Last Vital Signs Temp 97.7 F 11/12/21 14:45 Pulse 68 11/12/21 16:35 Resp 18 11/12/21 16:35 BP 113/77 11/12/21 14:45 Pulse Ox 94 11/12/21 16:35 Laboratory Results - last 24 hr 11/11/21 11/11/21 11/11/21 16:40 16:40 16:40 WBC 13.07 H RBC 4.25 L Hgb 13.3 L Hct 38.9 L MCV 92 MCH 31.3 MCHC 34.2 RDW 13.3 Plt Count 313 MPV 11.0 Immature Gran % 0.0 Neutrophils % 63.0 Lymphocytes % 31.0 Monocytes % 6.0 Eosinophils % 0.0 Basophils % 0.0 Nucleated RBC % 0.0 Absolute Neutrophils 8.23 H Absolute Lymphocytes 4.05 H Absolute Monocytes 0.78 Absolute Eosinophils 0.00 Absolute Basophils 0.00 RBC Morphology Normal PT 12.0 H INR 1.2 H VBG Lactate Sodium Cancelled Potassium Cancelled Chloride Cancelled Carbon Dioxide Cancelled Anion Gap Cancelled BUN Cancelled Creatinine Cancelled Estimated GFR/1.73 m2 Cancelled Glucose Cancelled Calcium Cancelled Magnesium Cancelled Ferritin Total Bilirubin Cancelled AST Cancelled ALT Cancelled Alkaline Phosphatase Cancelled Troponin I Cancelled C-Reactive Protein NT-Pro-B Natriuret Pep Cancelled Total Protein Cancelled Albumin Cancelled Lipase Procalcitonin TSH Free T4 Urine Color Urine Clarity Urine pH Ur Specific [place] Urine Protein Urine Ketones Urine Blood Urine Nitrite Urine Bilirubin Urine Urobilinogen Ur Leukocyte Esterase Urine Glucose COVID-19 Source SARS-CoV-2 (PCR) 11/11/21 11/11/21 11/11/21 17:17 17:40 19:23 WBC RBC Hgb Hct MCV MCH MCHC RDW Plt Count MPV Immature Gran % Neutrophils % Lymphocytes % Monocytes % Eosinophils % Basophils % Nucleated RBC % Absolute Neutrophils Absolute Lymphocytes Absolute Monocytes Absolute Eosinophils Absolute Basophils RBC Morphology PT INR VBG Lactate Sodium 137 Potassium 4.3 Chloride 102 Carbon Dioxide 24.2 Anion Gap 10.8 BUN 23 H Creatinine 1.4 H Estimated GFR/1.73 m2 52.05 Glucose 109 H Calcium 8.8 Magnesium 1.7 L Ferritin Total Bilirubin 1.2 H AST 31 ALT 35 Alkaline Phosphatase 111 Troponin I < 50 C-Reactive Protein NT-Pro-B Natriuret Pep 8917 H Total Protein 7.1 Albumin 3.5 Lipase Procalcitonin TSH Free T4 Urine Color Yellow Urine Clarity Clear Urine pH 5.5 Ur Specific [place] 1.025 Urine Protein Negative Urine Ketones Negative Urine Blood Negative Urine Nitrite Negative Urine Bilirubin Negative Urine Urobilinogen 1.0 H Ur Leukocyte Esterase Negative Urine Glucose Negative COVID-19 Source Nasal/Nares SARS-CoV-2 (PCR) Negative 11/11/21 11/11/21 11/11/21 19:45 19:45 21:27 WBC RBC Hgb Hct MCV MCH MCHC RDW Plt Count MPV Immature Gran % Neutrophils % Lymphocytes % Monocytes % Eosinophils % Basophils % Nucleated RBC % Absolute Neutrophils Absolute Lymphocytes Absolute Monocytes Absolute Eosinophils Absolute Basophils RBC Morphology PT INR VBG Lactate 1.5 H Sodium Potassium Chloride Carbon Dioxide Anion Gap BUN Creatinine Estimated GFR/1.73 m2 Glucose Calcium Magnesium Ferritin Total Bilirubin AST ALT Alkaline Phosphatase Troponin I < 50 C-Reactive Protein NT-Pro-B Natriuret Pep Total Protein Albumin Lipase 29 Procalcitonin TSH Free T4 Urine Color Urine Clarity Urine pH Ur Specific [place] Urine Protein Urine Ketones Urine Blood Urine Nitrite Urine Bilirubin Urine Urobilinogen Ur Leukocyte Esterase Urine Glucose COVID-19 Source SARS-CoV-2 (PCR) 11/11/21 11/11/21 11/12/21 21:27 21:50 04:01 WBC RBC Hgb Hct MCV MCH MCHC RDW Plt Count MPV Immature Gran % Neutrophils % Lymphocytes % Monocytes % Eosinophils % Basophils % Nucleated RBC % Absolute Neutrophils Absolute Lymphocytes Absolute Monocytes Absolute Eosinophils Absolute Basophils RBC Morphology PT INR VBG Lactate Sodium Potassium Chloride Carbon Dioxide Anion Gap BUN Creatinine Estimated GFR/1.73 m2 Glucose Calcium Magnesium Ferritin 74 Total Bilirubin AST ALT Alkaline Phosphatase Troponin I < 50 C-Reactive Protein NT-Pro-B Natriuret Pep Total Protein Albumin Lipase Procalcitonin TSH 7.88 H Free T4 1.26 Urine Color Cancelled Urine Clarity Cancelled Urine pH Cancelled Ur Specific [place] Cancelled Urine Protein Cancelled Urine Ketones Cancelled Urine Blood Cancelled Urine Nitrite Cancelled Urine Bilirubin Cancelled Urine Urobilinogen Cancelled Ur Leukocyte Esterase Cancelled Urine Glucose Cancelled COVID-19 Source SARS-CoV-2 (PCR) 11/12/21 11/12/21 11/12/21 04:01 04:01 04:01 WBC 10.27 RBC 4.68 Hgb 14.4 Hct 42.6 MCV 91 MCH 30.8 MCHC 33.8 RDW 13.4 Plt Count 326 MPV 10.4 Immature Gran % 0.6 Neutrophils % 78.7 Lymphocytes % 14.2 Monocytes % 5.7 Eosinophils % 0.2 Basophils % 0.6 Nucleated RBC % 0.0 Absolute Neutrophils 8.08 H Absolute Lymphocytes 1.46 Absolute Monocytes 0.59 Absolute Eosinophils 0.02 Absolute Basophils 0.06 RBC Morphology PT 11.6 H INR 1.2 H VBG Lactate Sodium Potassium Chloride Carbon Dioxide Anion Gap BUN Creatinine Estimated GFR/1.73 m2 Glucose Calcium Magnesium Ferritin Total Bilirubin AST ALT Alkaline Phosphatase Troponin I C-Reactive Protein NT-Pro-B Natriuret Pep Total Protein Albumin Lipase Procalcitonin < 0.1 TSH Free T4 Urine Color Urine Clarity Urine pH Ur Specific [place] Urine Protein Urine Ketones Urine Blood Urine Nitrite Urine Bilirubin Urine Urobilinogen Ur Leukocyte Esterase Urine Glucose COVID-19 Source SARS-CoV-2 (PCR) 11/12/21 05:35 WBC RBC Hgb Hct MCV MCH MCHC RDW Plt Count MPV Immature Gran % Neutrophils % Lymphocytes % Monocytes % Eosinophils % Basophils % Nucleated RBC % Absolute Neutrophils Absolute Lymphocytes Absolute Monocytes Absolute Eosinophils Absolute Basophils RBC Morphology PT INR VBG Lactate Sodium 136 Potassium 4.2 Chloride 99 Carbon Dioxide 19.7 L Anion Gap 17.3 H BUN 21 H Creatinine 1.3 Estimated GFR/1.73 m2 56.70 Glucose 141 H Calcium 9.0 Magnesium 2.1 Ferritin Total Bilirubin 1.5 H AST 13 L ALT 36 Alkaline Phosphatase 127 H Troponin I C-Reactive Protein 1.69 H NT-Pro-B Natriuret Pep 8441 H Total Protein 7.9 Albumin 4.0 Lipase 25 Procalcitonin TSH Free T4 Urine Color Urine Clarity Urine pH Ur Specific [place] Urine Protein Urine Ketones Urine Blood Urine Nitrite Urine Bilirubin Urine Urobilinogen Ur Leukocyte Esterase Urine Glucose COVID-19 Source SARS-CoV-2 (PCR)
[2021-11-12] MEDS: Hydrocortisone SOD SUC. 100 MG VIAL 50 MG IVP ×2 (17:18→23:05)
[2021-11-12] MEDS: Ketorolac 15 MG/ML VIAL IVP (19:38)
[2021-11-12] MEDS: hydrOXYzine HCL 25 MG TAB PO (23:04)
[2021-11-13] VITALS (13 sets, daily range): BP systolic 101–115; BP diastolic 72–80; PULSE 90–100; RESP 1–19; TEMP 36.3–37; O2SAT 93–97
[2021-11-13] MEDS: Albuterol/Ipratropium 3 ML UPD VIAL UPD ×4 (03:36→22:38)
[2021-11-13 06:51] LABS: Absolute Basophil Count 0.03 10^3/uL (0.0-0.2); Absolute Lymphocyte Count 2.19 10^3/uL (1.2-3.4); Absolute Monocyte Count 1.91 10^3/uL (0.1-0.8); Basophils % 0.2; Eosinophils % 0.1; HCT 39.3 % (40.0-50.0); HGB 13.5 g/dL (13.5-17.5); Immature Grans % 0.7; Lymphocytes % 14.3; MCHC 34.4 % (32.0-36.0); MCV 90 fL (80-95); MPV 10.5 fL (8.0-11.0); Monocytes % 12.5; Neutrophils % 72.2; RBC 4.36 10^6/uL (4.36-5.78); RDW 12.8 % (11.8-14.1); RDW-SD 42.5 fL; WBC 15.28 10^3/uL (4.4-10.8)
[2021-11-13 06:57] LABS: Absolute Eosinophil Count 0.02 10^3/uL (0.0-0.7); Absolute Neutrophil Count 11.03 10^3/uL (1.2-6.7)
[2021-11-13 07:25] LABS: Diff Comment Agrees w/ Instrument; Platelet Count 327 10^3/uL (130-400); RBC Morphology Normal
[2021-11-13 07:27] LABS: ALT 25 U/L (16-63); AST 18 U/L (15-37); Albumin 3.4 g/dL (3.4-5.0); Alkaline Phosphatase 105 U/L (46-116); Anion Gap 11.6 mmol/L (3-11); BUN 31 mg/dL (7-18); CO2 25.4 mmol/L (21.0-32.0); CREATININE 1.6 mg/dL (0.70-1.30); Calcium 8.7 mg/dL (8.5-10.1); Chloride 100 mmol/L (98-107); Estimated GFR 44.62 (mL/min/1.73m2); Glucose 132 mg/dL (74-106); Magnesium 1.9 mg/dL (1.8-2.4); NT-proBNP 6413 pg/mL (<300); Potassium 3.4 mmol/L (3.5-5.1); Sodium 137 mmol/L (136-145); Total Protein 7.1 g/dL (6.4-8.2)
[2021-11-13 07:51] LABS: Bilirubin, Direct 0.2 mg/dL (0.0-0.2)
[2021-11-13] MEDS: Budesonide/Formoterol 160/4.5 6 GM 60 PUFF INH IH ×2 (08:36→19:52)
[2021-11-13] MEDS: Tiotropium Bromide-Respimat 10 PUFF INH 2 PUFF IH (08:36)
[2021-11-13] MEDS: Normal Saline Flush 10 ML SYR IVP ×3 (08:52→22:38)
[2021-11-13] MEDS: Furosemide 20 MG/2 ML VIAL IVP ×2 (08:52→15:51)
[2021-11-13] MEDS: Hydrocortisone SOD SUC. 100 MG VIAL 50 MG IVP ×3 (08:52→22:37)
[2021-11-13] MEDS: Pantoprazole 40 MG VIAL IVP (08:52)
[2021-11-13] MEDS: FLUoxetine 20 MG CAP 60 MG PO (08:52)
[2021-11-13] MEDS: Atorvastatin 40 MG TAB 80 MG PO (08:53)
[2021-11-13] MEDS: Baclofen 10 MG TAB PO ×2 (08:53→19:52)
[2021-11-13] MEDS: Aspirin 81 MG CHEW PO (08:53)
[2021-11-13] MEDS: Potassium Chloride 20 MEQ TABCR 40 MEQ PO (09:54)
[2021-11-13 14:40] LABS: Angiotensin Converting Enzyme 76 U/L (16 - 85)
--- NOTE | 2021-11-13 17:13 | PGE_ITS ---
Date of Service Date of service: 11/13/21 Time of Service: 17:13 Assessment and Plan Assessment and plan (1) Acute on chronic systolic CHF (congestive heart failure): Status: Acute Assessment and plan: Improving. Continue diuresis with strict I/O's and daily weights. He is almost 1L negative today so far. POCUS LVEF is close to 25%, per Dr Soto. For official echo on Monday11/15/21. (2) Acute cholecystitis: Status: Suspected Assessment and plan: Await read of the RUQ US. Continue empiric zosyn. (3) Bilateral pleural effusion: Status: Acute Assessment and plan: Likely due to CHF. Diuresis as above. (4) Atypical chest pain: Status: Acute Assessment and plan: Ruled out for ACS. Continue antiinflammatories (has both hydrocortieone and toradol written). For echo on Monday. Continue to monitor on tele. (5) COPD (chronic obstructive pulmonary disease): Status: Chronic Assessment and plan: Not in acute exacerbation. As above - seen by pulmonology. Isidraiva added. (6) CAD (coronary artery disease), [place] coronary artery: Status: Chronic Assessment and plan: H/o cardiac cath/stents. Current CP, though, is not felt to be cardiac in nature. (7) Sarcoid: Status: Chronic Assessment and plan: Follow up with pulmonary as outpatient. The likely cause of his lymphadenopathy. (8) Scrotal pain: Status: Acute Assessment and plan: Evaluated by urology. Not felt to be infectious in nature. Treat with antiinflammatories. Doing well off of abx. (9) Thoracic lymphadenopathy: Status: Chronic Assessment and plan: I suspect that this is chronic and due to sarcoidosis. Follow up as outpatient. (10) DVT prophylaxis: Status: Acute Assessment and plan: Start lovenox (11) Discharge planning issues: Status: Acute Assessment and plan: Full code Continues to require hospitalization. Possible discharge back to correctional facility on Monday, depending on echo results. Subjective Subjective Interval history since last seen: Mr Smith states he is feeling better. His breathing is getting better every day. He denies dizziness, chest pain, shortness of breath, nausea. States that his left sided chest discomfort is almost entirely gone. Not having abdominal pain. Tolerating PO. No cholecystitis, per general surgery, so no plans for cholecystectomy. Exam Narrative Exam Narrative: General: Pleasant middle-aged male who appears comfortable carla bed on RA, eating dinner, A&Ox3, NAD HEENT: EOMI, MMM Heart: RRR, no m/r/g Lungs: Crackles at B bases Abdomen: soft, nontender, nondistended. No Phillips's sign. Extremities: trace edema BLEs. Objective Last Vital Signs Temp 36.3 C L 11/13/21 15:44 Pulse 90 11/13/21 15:44 Resp 18 11/13/21 15:44 BP 115/80 11/13/21 15:44 Pulse Ox 97 11/13/21 15:44 Laboratory Results - last 24 hr 11/13/21 11/13/21 11/13/21 06:28 06:28 06:28 WBC 15.28 H RBC 4.36 Hgb 13.5 Hct 39.3 L MCV 90 MCH 31.0 MCHC 34.4 RDW 12.8 Plt Count 327 MPV 10.5 Immature Gran % 0.7 Neutrophils % 72.2 Lymphocytes % 14.3 Monocytes % 12.5 Eosinophils % 0.1 Basophils % 0.2 Nucleated RBC % 0.0 Absolute Neutrophils 11.03 H Absolute Lymphocytes 2.19 Absolute Monocytes 1.91 H Absolute Eosinophils 0.02 Absolute Basophils 0.03 RBC Morphology Normal Sodium 137 Potassium 3.4 L Chloride 100 Carbon Dioxide 25.4 Anion Gap 11.6 H BUN 31 H Creatinine 1.6 H Estimated GFR/1.73 m2 44.62 Glucose 132 H Calcium 8.7 Magnesium 1.9 Total Bilirubin 1.0 Cancelled Conjugated Bilirubin 0.2 Cancelled AST 18 Cancelled ALT 25 Cancelled Alkaline Phosphatase 105 Cancelled C-Reactive Protein 0.90 H NT-Pro-B Natriuret Pep 6413 H Total Protein 7.1 Cancelled Albumin 3.4 Cancelled
[2021-11-13] MEDS: Enoxaparin 40 MG/0.4 ML SYR SC (18:15)
[2021-11-13] MEDS: hydrOXYzine HCL 25 MG TAB PO (22:37)
[2021-11-14] VITALS (17 sets, daily range): BP systolic 109–127; BP diastolic 72–87; PULSE 85–128; RESP 1–20; TEMP 35.3–36.7; O2SAT 94–98
[2021-11-14] MEDS: Albuterol/Ipratropium 3 ML UPD VIAL UPD (04:23)
[2021-11-14 07:33] LABS: Abs Immature Grans 0.09 10^3/uL (0.0-0.06); Absolute Basophil Count 0.03 10^3/uL (0.0-0.2); Absolute Eosinophil Count 0.03 10^3/uL (0.0-0.7); Absolute Lymphocyte Count 3.53 10^3/uL (1.2-3.4); Absolute Monocyte Count 2.34 10^3/uL (0.1-0.8); Basophils % 0.2; Eosinophils % 0.2; HCT 41.3 % (40.0-50.0); HGB 14.1 g/dL (13.5-17.5); Immature Grans % 0.5; MCH 30.9 pg (27.0-33.0); MCHC 34.1 % (32.0-36.0); MCV 91 fL (80-95); MPV 10.2 fL (8.0-11.0); Monocytes % 13.9; Neutrophils % 64.2; Platelet Count 362 10^3/uL (130-400); RBC 4.56 10^6/uL (4.36-5.78); RDW 13.1 % (11.8-14.1); RDW-SD 43.4 fL
[2021-11-14 07:34] LABS: Absolute Neutrophil Count 10.79 10^3/uL (1.2-6.7)
[2021-11-14 07:38] LABS: ALT 23 U/L (16-63); AST 14 U/L (15-37); Albumin 3.5 g/dL (3.4-5.0); Alkaline Phosphatase 104 U/L (46-116); Anion Gap 9.1 mmol/L (3-11); BUN 25 mg/dL (7-18); Bilirubin, Total 0.8 mg/dL (0.2-1.0); CO2 27.9 mmol/L (21.0-32.0); CREATININE 1.3 mg/dL (0.70-1.30); Calcium 8.7 mg/dL (8.5-10.1); Chloride 100 mmol/L (98-107); Glucose 125 mg/dL (74-106); Magnesium 1.7 mg/dL (1.8-2.4); Potassium 3.6 mmol/L (3.5-5.1); Sodium 137 mmol/L (136-145); Total Protein 7.4 g/dL (6.4-8.2)
[2021-11-14] MEDS: Budesonide/Formoterol 160/4.5 6 GM 60 PUFF INH IH ×2 (07:56→20:42)
[2021-11-14] MEDS: Tiotropium Bromide-Respimat 10 PUFF INH 2 PUFF IH (07:56)
[2021-11-14] MEDS: Hydrocortisone SOD SUC. 100 MG VIAL 25 MG IVP ×2 (08:43→16:58)
[2021-11-14] MEDS: MAGNESIUM SULFATE 2 GM/50 ML BAG IVPB (08:44)
[2021-11-14] MEDS: Pantoprazole 40 MG VIAL IVP (08:44)
[2021-11-14] MEDS: Atorvastatin 40 MG TAB 80 MG PO (08:44)
[2021-11-14] MEDS: Aspirin 81 MG CHEW PO (08:44)
[2021-11-14] MEDS: Baclofen 10 MG TAB PO ×2 (08:44→20:41)
[2021-11-14] MEDS: Furosemide 20 MG/2 ML VIAL IVP ×2 (08:44→16:58)
[2021-11-14] MEDS: FLUoxetine 20 MG CAP 60 MG PO (08:44)
[2021-11-14] MEDS: Normal Saline Flush 10 ML SYR IVP ×2 (08:45→16:58)
[2021-11-14] MEDS: Magnesium Oxide 400 MG TAB PO (08:45)
[2021-11-14] MEDS: Ipratropium 0.5 MG/2.5 ML UPD VIAL UPD ×2 (12:22→18:00)
--- NOTE | 2021-11-14 15:23 | W.PM.PROGNOT ---
Date of Service Date of service: 11/14/21 Time of Service: 15:23 Assessment and Plan Assessment and plan (1) Acute on chronic systolic CHF (congestive heart failure): Status: Acute Assessment and plan: Improving. Continue diuresis with lasix 20 mg IV BID, monitoring strict I/O's and daily weights. He is almost 3L negative today. POCUS LVEF is close to 25%, per Dr Soto. For official echo tomorrow. (2) Acute cholecystitis: Status: Ruled-out Assessment and plan: off of abx. NO plans for surgery. (3) Bilateral pleural effusion: Status: Acute Assessment and plan: Likely due to CHF. Diuresis as above. (4) Atypical chest pain: Status: Resolved Assessment and plan: Ruled out for ACS. Continue antiinflammatories (has both hydrocortisone taper and toradol). For echo tomorrow. Continue to monitor on tele. (5) COPD (chronic obstructive pulmonary disease): Status: Chronic Assessment and plan: Not in acute exacerbation. As above - seen by pulmonology. Franki added. (6) CAD (coronary artery disease), [place] coronary artery: Status: Chronic Assessment and plan: H/o cardiac cath/stents. Current CP, though, is not felt to be cardiac in nature. (7) Sarcoid: Status: Chronic Assessment and plan: Follow up with pulmonary as outpatient. The likely cause of his lymphadenopathy. (8) Scrotal pain: Status: Acute Assessment and plan: Evaluated by urology. Not felt to be infectious in nature. Treat with antiinflammatories. Doing well off of abx. (9) Thoracic lymphadenopathy: Status: Chronic Assessment and plan: I suspect that this is chronic and due to sarcoidosis. Follow up as outpatient. (10) DVT prophylaxis: Status: Acute Assessment and plan: [place] lovenox (11) Discharge planning issues: Status: Acute Assessment and plan: Full code Continues to require hospitalization. Possible discharge back to correctional facility tomorrow depending on echo results. Subjective Subjective Interval history since last seen: Feels better. Denies dizziness, chest pain (entirely resolved), nausea. Scrotal pain is better. Shortness of breath is better. Exam Narrative Exam Narrative: General: Pleasant middle-aged male who appears comfortable in bed on RA, asleep, wakes up easily, A&Ox3, NAD HEENT: EOMI, MMM Heart: RRR, no m/r/g Lungs: Crackles at B bases (improved) Abdomen: soft, nontender, nondistended. No Phillips's sign. Extremities:no edema BLEs. Objective Last Vital Signs Temp 36.0 C L 11/14/21 12:29 Pulse 91 H 11/14/21 12:29 Resp 18 11/14/21 12:29 BP 109/74 11/14/21 12:29 Pulse Ox 95 11/14/21 12:29 Laboratory Results - last 24 hr 11/11/21 11/14/21 11/14/21 17:17 07:15 07:15 WBC 16.80 H RBC 4.56 Hgb 14.1 Hct 41.3 MCV 91 MCH 30.9 MCHC 34.1 RDW 13.1 Plt Count 362 MPV 10.2 Immature Gran % 0.5 Neutrophils % 64.2 Lymphocytes % 21.0 Monocytes % 13.9 Eosinophils % 0.2 Basophils % 0.2 Nucleated RBC % 0.0 Absolute Neutrophils 10.79 H Absolute Lymphocytes 3.53 H Absolute Monocytes 2.34 H Absolute Eosinophils 0.03 Absolute Basophils 0.03 Sodium 137 Potassium 3.6 Chloride 100 Carbon Dioxide 27.9 Anion Gap 9.1 BUN 25 H Creatinine 1.3 Estimated GFR/1.73 m2 56.70 Glucose 125 H Calcium 8.7 Magnesium 1.7 L Total Bilirubin 0.8 AST 14 L ALT 23 Alkaline Phosphatase 104 C-Reactive Protein 0.50 H Total Protein 7.4 Albumin 3.5 Angiotensin Convert Enz 76
[2021-11-14] MEDS: Enoxaparin 40 MG/0.4 ML SYR SC (18:45)
[2021-11-14] MEDS: Metoprolol 12.5 MG TAB PO (20:41)
[2021-11-15] VITALS (8 sets, daily range): BP systolic 104–127; BP diastolic 68–85; PULSE 76–101; RESP 2–20; TEMP 35.2–36.8; O2SAT 94–97
[2021-11-15] MEDS: Ketorolac 15 MG/ML VIAL IVP (00:25)
[2021-11-15] MEDS: hydrOXYzine HCL 25 MG TAB PO (00:26)
[2021-11-15] MEDS: Hydrocortisone SOD SUC. 100 MG VIAL 25 MG IVP ×3 (00:26→15:37)
[2021-11-15] MEDS: Ipratropium 0.5 MG/2.5 ML UPD VIAL UPD ×3 (06:55→17:21)
[2021-11-15 06:59] LABS: Abs Immature Grans 0.07 10^3/uL (0.0-0.06); Absolute Basophil Count 0.06 10^3/uL (0.0-0.2); Absolute Monocyte Count 2.17 10^3/uL (0.1-0.8); Basophils % 0.4; Eosinophils % 1.3; HCT 44.1 % (40.0-50.0); HGB 14.8 g/dL (13.5-17.5); Immature Grans % 0.5; Lymphocytes % 28.5; MCH 30.4 pg (27.0-33.0); MCHC 33.6 % (32.0-36.0); MCV 91 fL (80-95); MPV 10.6 fL (8.0-11.0); Monocytes % 14.3; Platelet Count 357 10^3/uL (130-400); RBC 4.87 10^6/uL (4.36-5.78); RDW 13.1 % (11.8-14.1); RDW-SD 42.6 fL; WBC 15.18 10^3/uL (4.4-10.8)
[2021-11-15 07:04] LABS: Absolute Lymphocyte Count 4.33 10^3/uL (1.2-3.4); Absolute Neutrophil Count 8.35 10^3/uL (1.2-6.7)
[2021-11-15 07:16] LABS: Anion Gap 8.1 mmol/L (3-11); BUN 35 mg/dL (7-18); CO2 30.9 mmol/L (21.0-32.0); CREATININE 1.3 mg/dL (0.70-1.30); Calcium 8.6 mg/dL (8.5-10.1); Chloride 97 mmol/L (98-107); Glucose 105 mg/dL (74-106); Magnesium 2.1 mg/dL (1.8-2.4); Potassium 3.6 mmol/L (3.5-5.1); Sodium 136 mmol/L (136-145)
[2021-11-15 07:20] LABS: Diff Comment Diff Reviewed; RBC Morphology Normal
[2021-11-15] MEDS: Atorvastatin 40 MG TAB 80 MG PO (07:42)
[2021-11-15] MEDS: Normal Saline Flush 10 ML SYR IVP ×2 (07:42→15:37)
[2021-11-15] MEDS: Furosemide 20 MG/2 ML VIAL IVP ×2 (07:42→15:37)
[2021-11-15] MEDS: Metoprolol 12.5 MG TAB PO (07:42)
[2021-11-15] MEDS: Baclofen 10 MG TAB PO ×2 (07:43→19:53)
[2021-11-15] MEDS: Pantoprazole 40 MG TABCR PO (07:43)
[2021-11-15] MEDS: Aspirin 81 MG CHEW PO (07:43)
[2021-11-15] MEDS: FLUoxetine 20 MG CAP 60 MG PO (07:43)
[2021-11-15] MEDS: Magnesium Oxide 400 MG TAB PO (07:43)
--- NOTE | 2021-11-15 08:00 | DI.US_ITS ---
APPROVED REPORT EXAM: Comprehensive 2D, Doppler, and color-flow Echocardiogram Patient Location: In-Patient Room/Bed: 212 Foreign Clerk: Tamiko Cline RDCS (AE) Indications: Enlarged heart, Elevated BNP, right pleural eff, Chest pain Other Information Study Quality: Adequate. Technically limited study due to body habitus, inability to position patient Exam done supine. Conclusion Normal left ventricular wall thickness and chamber size. Estimated ejection fraction is 30%. There is global hypokinesis Normal right ventricular size and systolic function Left atrium is moderately dilated. The right atrium is normal in size Trileaflet aortic valve without stenosis or regurgitation Mild mitral annular calcification. Mildly thickened mitral leaflets. Moderate to severe mitral regu rgitation Normal tricuspid valve with trace regurgitation. Estimated right ventricular systolic pressure is 40 mmHg Wall motion Left Ventricle The left ventricle is normal size. Left ventricular systolic function is moderately decreased. There is normal left ventricular wall thickness. There is global hypokinesis of the left ventricle. There i s no ventricular septal defect visualized. LVEF is 30%. Right Ventricle The right ventricle is normal size. The right ventricular systolic function is normal. The RVSP is 39 .6mmHg. Atria Left atrium is moderately dilated. The right atrium size is normal. The interatrial septum is intact with no evidence for an atrial septal defect. Aortic Valve The aortic valve is normal in structure. Aortic valve is trileaflet. There is no aortic valvular sten osis. No aortic regurgitation is present. Mitral Valve Mild mitral annular calcification. Mitral valve leaflets are thickened. No evidence of mitral valve s tenosis. Moderate to severe mitral regurgitation Tricuspid Valve The tricuspid valve is normal in structure. There is no tricuspid valve stenosis. Trace tricuspid reg urgitation. Pulmonic Valve The pulmonary valve is normal in structure. There is no pulmonic valvular stenosis. Trace pulmonic re gurgitation. Great Vessels The aortic root is normal in size. The ascending aorta is normal in size. Aortic arch is not well vis ualized. The IVC collapses <50% with inspiration. Pericardium There is no pericardial effusion. 2D Dimensions IVSD d PLAX 0.87 cm M: 0.6-1.2 LV Vol A2C d MOD 219.3 mL LVPW d PLAX 0.87 cm M: 0.6 - 1.2 LV Vol A4C d MOD 152.3 mL LVID d PLAX 5.56 cm M: 4.2 - 5.8 LA vol/ BSA A2C s A-L 47.8 mL/m2 LVDs 4.70 cm M: 2.5 - 4.0 LA vol/ BSA A4C s A-L 25.4 mL/m2 Ao Root d 2.35 cm M: 3.1 - 3.7 LA Vol/ BSA Biplane s A-L 37.4 mL/m2 RA Area A4C 18.07 cm2 LA Area A4C s MOD 17.01 cm2 RA Vol/ BSA A4C s A-L 30.5 mL/m2 LA Area A2C s MOD 25.06 cm2 Ao Asc Diam d 3.12 cm M: 2.6 - 3.4 LV EF A4C MOD 30.8 % LV EF Teichholz 31.8 % LV EF A2C MOD 30.8 % LVEF (Louis's) 30.85 % M: 52 - 72 LV EF Biplane MOD 30.9 % LV Volume 139.65 mL M: 62 - 150 SV 56.76 mL LV Volume Index 72.35 mL/m2 M: 34 - 74 SV Index 29.40 mL/m2 LV Vol Biplane MOD 184.0 mL FS 15.20 % M-Mode TAPSE 1.20 cm (M/F) >1.7 LV Diastology MV E' medial 0.060 (>0.07 m/s) E/A Ratio 2.8 LV E/e MED 20.90 (<14) MV E Vmax 1.25 (0.4-1.3 m/s) MV E' lateral 0.076 (>0.1 m/s) MV A Vmax 0.45 (0.4-1.3 m/s) LV E/e LAT 16.30 (<14) MV E/A Ratio 2.66 MV E/E' medial 20.90 MV E/E' lateral 16.35 Aortic Valve LVOT Area 3.59 cm2 AoV Area Vmax 3.48 cm2 LVOT Vmax 0.71 m/s AoV Area/ BSA (Vmax) 1.80 cm2/m2 LVOT Mean Charbel. 0.53 m/s KENYON Mean Charbel. 2.93 cm2 LVOT Peak Grad 2.0 mmHg KENYON Mean Charbel. Index 1.52 cm2/m2 LVOT Mean Grad 1.3 mmHg LVOT VTI 0.125 m LVOT Diam s 2.10 cm AoV Vmax 0.73 m/s Velocity Ratio 0.97 AoV Mean Charbel. 0.65 m/s AoV Peak Grad 2.2 mmHg LVOT SV 44.79 mL AoV Mean Grad 1.7 mmHg AoV VTI 0.134 m AoV Area VTI 3.33 cm2 AoV Area/ BSA (VTI) 1.73 cm/m2 Mitral Valve MV DT 161 (160-240 msec) MR Vmax 3.74 m/s MV PHT 47 msec MR VTI 1.144 m MV Area PHT 4.72 cm2 MR Peak Grad 56.0 mmHg MV VTI 0.335 m MR Mean Grad 41.4 mmHg MV VTI Annulus 0.349 m MR PISA Radius 0.74 cm MV Area VTI 1.40 (4.0-6.0 cm2) MR EROA 0.32 cm2 MR Aliasing Velocity 0.35 m/s MR PISA 3.42 cm2 Pulmonary Valve PV Vmax 0.66 (0.5-1.5 m/s) RVOT Peak Gr. 0.54 mmHg PV Peak Grad 1.7 mmHg RVOT Mean Gr. 0.30 mmHg PV Mean Grad 1.1 mmHg RVOT VTI 0.057 m PV VTI 0.120 m RVOT Vmax 0.37 m/s Tricuspid Valve TR Peak Grad 31.6 mmHg TR Vmax 2.81 m/s RA Pressure 8.00 mmHg RVSP (TR) 39.6 mmHg
--- NOTE | 2021-11-15 08:50 | CMPROGNOTE_ITS ---
- If Service Date Differs Date of service: 11/15/21 Time of Service: 08:50 Care Management Progress Note S/O: Chriss requires additional medical workup, testing and close monitoring. He is being followed by [facility], consulting providers are Urology, Pulmonolgy and Cardiology. Disposition to be determined, Echo results are pending. A:56 year old male admitted to [facility] on 11/11/21 for Acute cholecystitis, CAD, Sarcoid, Pleural effusion, Anemia, Acute epididymitis P: Anticipate, Chriss will discharge back to [facility] when medically ready per provider. [facility] will arrange transportation. Chriss will follow up with community providers and discharge plan of care as prescribed.
[2021-11-15] MEDS: Budesonide/Formoterol 160/4.5 6 GM 60 PUFF INH IH ×2 (09:13→19:54)
[2021-11-15] MEDS: Tiotropium Bromide-Respimat 10 PUFF INH 2 PUFF IH (09:14)
[2021-11-15 09:58] LABS: Alpha 1 Antitrypsin,Serum 153 mg/dL (90-200)
[2021-11-15 15:27] LABS: Chlamydia Result Negative (Negative); GC Result Negative (Negative)
[2021-11-15] MEDS: Enoxaparin 40 MG/0.4 ML SYR SC (17:21)
--- NOTE | 2021-11-15 19:00 | W.PM.PROGNOT ---
Date of Service Date of service: 11/15/21 Time of Service: 17:10 Assessment and Plan Assessment and plan (1) Acute on chronic systolic CHF (congestive heart failure): Status: Acute Assessment and plan: LVEF 30% with global hypokinesis on echo. Discussed with Dr Cyr - would benefit from an MPI stress test. Volume status is Improving. Change lasix to PO (20 mg BID). Continue monitoring strict I/O's and daily weights. (2) Bilateral pleural effusion: Status: Acute Assessment and plan: Likely due to CHF. Diuresis as above. (3) Atypical chest pain: Status: Resolved Assessment and plan: Ruled out for ACS. Continue antiinflammatories (has both hydrocortisone taper and toradol). Should chest tightness recur, I have instructed the nurses to obtain an EKG/troponin, and notify MD. (4) Acute cholecystitis: Status: Ruled-out Assessment and plan: off of abx. No plans for surgery. (5) COPD (chronic obstructive pulmonary disease): Status: Chronic Assessment and plan: Not in acute exacerbation. As above - seen by pulmonology. Isidraiva added. (6) CAD (coronary artery disease), [place] coronary artery: Status: Chronic Assessment and plan: H/o cardiac cath/stents. No ACS on presentation. For MPI stress test tomorrow. (7) Sarcoid: Status: Chronic Assessment and plan: Follow up with pulmonary as outpatient. The likely cause of his lymphadenopathy. (8) Scrotal pain: Status: Acute Assessment and plan: Evaluated by urology. Not felt to be infectious in nature. Treat with antiinflammatories. Doing well off of abx. (9) Thoracic lymphadenopathy: Status: Chronic Assessment and plan: I suspect that this is chronic and due to sarcoidosis - Dr Soto agrees. Follow up as outpatient. (10) DVT prophylaxis: Status: Acute Assessment and plan: SC lovenox (11) Discharge planning issues: Status: Acute Assessment and plan: Full code Continues to require hospitalization. Possible discharge back to correctional facility tomorrow depending on MPI results. Subjective Subjective Interval history since last seen: Mr Smith states that his L chest hurt today only when he was getting his echocardiogram. Otherwise, it does not hurt. Last night he had two episodes of chest tightness, diaphoresis and disorientation. He is wondering what these were. He denied nausea during this time. We agreed that the next time this would happen, he would get an EKG. He denies dizziness, chest pain now, shortness of breath, nausea, and his scrotal pain is improving. He states that he would like his family to be notified of him being in the hospital (his assisted guards are aware of this request and I deferred this notification to them). Exam Narrative Exam Narrative: General: Pleasant middle-aged male who appears anxious today, but comfortable in bed, on RA, A&Ox3 HEENT: EOMI, MMM Heart: RRR, no m/r/g Lungs: faint crackles at B bases Abdomen: soft, nontender, nondistended. No Phillips's sign. Extremities:no edema BLEs. Objective Last Vital Signs Temp 36.8 C 11/15/21 14:56 Pulse 76 11/15/21 14:56 Resp 18 11/15/21 14:56 BP 107/71 11/15/21 14:56 Pulse Ox 97 11/15/21 14:56 Laboratory Results - last 24 hr 11/11/21 11/11/21 11/15/21 17:17 21:40 06:37 WBC 15.18 H RBC 4.87 Hgb 14.8 Hct 44.1 MCV 91 MCH 30.4 MCHC 33.6 RDW 13.1 Plt Count 357 MPV 10.6 Immature Gran % 0.5 Neutrophils % 55.0 Lymphocytes % 28.5 Monocytes % 14.3 Eosinophils % 1.3 Basophils % 0.4 Nucleated RBC % 0.0 Absolute Neutrophils 8.35 H Absolute Lymphocytes 4.33 H Absolute Monocytes 2.17 H Absolute Eosinophils 0.20 Absolute Basophils 0.06 RBC Morphology Normal Sodium Potassium Chloride Carbon Dioxide Anion Gap BUN Creatinine Estimated GFR/1.73 m2 Glucose Calcium Magnesium [id number] 153 Chlamydia DNA Probe Negative Chlamydia/GC DNA Source Not Applicable N.gonorrhoeae DNA Probe Negative 11/15/21 07:03 WBC RBC Hgb Hct MCV MCH MCHC RDW Plt Count MPV Immature Gran % Neutrophils % Lymphocytes % Monocytes % Eosinophils % Basophils % Nucleated RBC % Absolute Neutrophils Absolute Lymphocytes Absolute Monocytes Absolute Eosinophils Absolute Basophils RBC Morphology Sodium 136 Potassium 3.6 Chloride 97 L Carbon Dioxide 30.9 Anion Gap 8.1 BUN 35 H Creatinine 1.3 Estimated GFR/1.73 m2 56.70 Glucose 105 Calcium 8.6 Magnesium 2.1 [id number] Chlamydia DNA Probe Chlamydia/GC DNA Source N.gonorrhoeae DNA Probe Objective Narrative Objective Narrative: Echo; Normal left ventricular wall thickness and chamber size.? Estimated ejection fraction is 30%.? There is global hypokinesis Normal right ventricular size and systolic function Left atrium is moderately dilated.? The right atrium is normal in size Trileaflet aortic valve without stenosis or regurgitation Mild mitral annular calcification.? Mildly thickened mitral leaflets.? Moderate to severe mitral regurgitation Normal tricuspid valve with trace regurgitation.? Estimated right ventricular systolic pressure is 40 mmHg
--- NOTE | 2021-11-15 20:53 | NUR.NOTE ---
PT became threatening with the nurse. Demanding that family be called. refusing the testing that is set up for tommorow. Pt wants to leave. AMA form provided. pt signed Forestry Foreman Esthela notified. Dr forrester also notified. Nursing Note:
--- NOTE | 2021-11-15 20:57 | NUR.NOTE ---
@ 20:00 this RN was informing patient that at midnight he will be NPO, to have his stress test done. Mr Smith stated that he will not have any tests done until we inform his family where he is. This RN advised the patient that we are not able to do so as we have to comply with the protocols of the correction as well as this facility. Patient started shouting , stating and i quote i am not doing any fucking test until you guys call my family. i can during this test and you guys dont fucking care.if you guys dont call my family things can start to get real in this and you are going to really see when a person goes off. This RN inform patient that the Nursing supervisor order takers and MD will be notified. Patient was advised that he can stay and comply with the regulations of the facility and have his cardiac tests done or leave AMA.Patient wants to leave. Patient was given a AMA form, which was explained to him that leaving against medical advise, can lead to complications including .patient was still adamant that he is leaving. form was signed and witnessed by this RN .Telemetry device and IV access was removed. Guards assisted patient in getting dressed .
== END 2021-11-15 21:09 | disposition left against medical advice (07) | DRG 293 ==
LOC: ER 22:04 → MS 23:14
PROVIDERS: Internal Medicine; Surgery; Admitting Provider Family Medicine; Emergency Provider Physician Assistant; Visit Provider Family Medicine
DX: I50.23 Acute on chronic systolic (congestive) heart failure (principal); K21.9 Gastro-esophageal reflux disease without esophagitis; D86.0 Sarcoidosis of lung; R59.0 Localized enlarged lymph nodes; M47.816 Spondylosis without myelopathy or radiculopathy, lumbar region; I25.10 Atherosclerotic heart disease of native coronary artery without angina pectoris; E78.5 Hyperlipidemia, unspecified; E66.9 Obesity, unspecified; J44.9 Chronic obstructive pulmonary disease, unspecified; D64.9 Anemia, unspecified; I44.7 Left bundle-branch block, unspecified; I49.1 Atrial premature depolarization; R07.89 Other chest pain; N50.82 Scrotal pain; Z68.29 Body mass index [BMI] 29.0-29.9, adult; Z87.891 Personal history of nicotine dependence; Z95.1 Presence of aortocoronary bypass graft
CPT/HCPCS: 36415; 71275; 80048; 80053; 80076; 82164; 83690; 84145; 85027; 87040; 87491; 87591; 87635; 93005; 94640; 96365; 96375; 99285; J1650; 74174; 76700; 81003; 82103; 82248; 82728; 83605; 83735; 83880; 84439; 84443; 84484; 85025; 85610; 86140; 93010; 93306; 94664; 94760; 99223; 99232; 99233; J1720; J1885; J1941; J2543; J3010; J3490; J7613; J7620; J7644

== ENCOUNTER 2021-11-17 11:33 | Observation (INO) | payer OTHER, SELFPAY ==
[2021-11-17] VITALS (33 sets, daily range): BP systolic 113–132; BP diastolic 68–91; PULSE 79–97; RESP 8–25; TEMP 35.2–36.8; O2SAT 92–97
--- NOTE | 2021-11-17 11:15 | RT.EKG_ITS ---
APPROVED REPORT Exam: Resting ECG Reason for Exam: chest pain Patient Location: E HR:95 bpm ECG Measurements Heart Rate 95 AXIS OH 169 P 69 QRSd 106 QRS 24 QT 405 T -32 QTc 508 Conclusion Sinus rhythm. Prolonged QT interval...QTc >500mS
[2021-11-17 12:01] LABS: Abs Immature Grans 0.06 10^3/uL (0.0-0.06); HCT 44.5 % (40.0-50.0); HGB 15.2 g/dL (13.5-17.5); MCH 30.6 pg (27.0-33.0); MCHC 34.2 % (32.0-36.0); MCV 90 fL (80-95); MPV 9.9 fL (8.0-11.0); Platelet Count 371 10^3/uL (130-400); RBC 4.97 10^6/uL (4.36-5.78); RDW 12.5 % (11.8-14.1); RDW-SD 41.1 fL; WBC 11.65 10^3/uL (4.4-10.8)
[2021-11-17 12:15] LABS: Source Nasal/Nares
[2021-11-17 12:21] LABS: ALT 31 U/L (16-63); AST 22 U/L (15-37); Albumin 3.7 g/dL (3.4-5.0); Alkaline Phosphatase 95 U/L (46-116); Anion Gap 9.7 mmol/L (3-11); BUN 28 mg/dL (7-18); Bilirubin, Total 1.8 mg/dL (0.2-1.0); CO2 28.3 mmol/L (21.0-32.0); CREATININE 1.1 mg/dL (0.70-1.30); Chloride 100 mmol/L (98-107); Glucose 111 mg/dL (74-106); Potassium 3.5 mmol/L (3.5-5.1); Sodium 138 mmol/L (136-145); Total Protein 7.6 g/dL (6.4-8.2); Troponin I < 50 ng/L (<or=60)
[2021-11-17 12:26] LABS: Absolute Basophil Count 0.12 10^3/uL (0.0-0.2); Absolute Lymphocyte Count 1.17 10^3/uL (1.2-3.4); Absolute Monocyte Count 1.51 10^3/uL (0.1-0.8); Absolute Neutrophil Count 8.85 10^3/uL (1.2-6.7); Atypical Lymphocytes % 2; Diff Comment Manual Differential
[2021-11-17 12:27] LABS: RBC Morphology Normal
[2021-11-17 13:08] LABS: COVID-19 PCR Negative (Negative)
--- NOTE | 2021-11-17 13:10 | DI.RAD_ITS ---
Exam(s) XR CHEST 2V PA LATERAL EXAM: XR CHEST 2V PA LATERAL CLINICAL HISTORY: chest pain TECHNIQUE: COMPARISON: CT CT THORAX ABD/PEL CTA from 11/11/2021 FINDINGS: The heart is mildly enlarged. There is some prominence of the yair bilaterally, consistent with prom inent pulmonary vasculature, recent chest CT showed prominence of hilar and mediastinal lymph nodes, nonspecific. There is no focal pulmonary consolidation. Pleural effusions noted on CT are not appreciated on toda y's examination. IMPRESSION: No evidence of acute change. RADIATION DOSE DELIVERED: Total DLP
--- NOTE | 2021-11-17 13:42 | W.ED.GENAD ---
Discharge Plan Disposition Patient Disposition: [facility] INPATIENT Condition: Stable Discharge Details Clinical Impression: CHF (congestive heart failure), Atypical chest pain Admit Date/Time: 11/17/21 13:48 Admit Provider: Gamaliel Serrato Attending Provider: Gamaliel Serrato Primary Care Provider: Jared Glez ED Provider: Adithya Merrill Discharge Data Discharge Date/Time-TO BE ENTERED AT DEPARTURE: 11/17/21 15:31 Medical Decision Making Patient presenting to the emergency department for chief complaint of chest pain, tightness, and worsening shortness of breath with activity. He states that this has been going on for couple weeks now. He was recently admitted and was pending further cardiac work-up where he left AGAINST MEDICAL ADVICE due to no one contacting his family to update them on his status. Patient denies any change in his symptoms to states worsening of his symptoms. Patient is not incarcerated male under corrections custody. Physical exam does show slight crackles and decreased lung sounds on the left side, no lower extremity edema, normal abdominal exam, normal cardiac exam. We will plan on checking screening labs, reviewing past medical records, performing EKG and chest Xray. Please see physician interpretation for full interpretation of EKG but EKG shows sinus rhythm, rate of 95, no findings that would meet criteria for acute STEMI Review of labs show a slight white count of 11.65 with increased neutrophils, low lymphocytes high monocytes, CMP with an elevated BUN of 28, total bili of 1.8, nondetected initial troponin, negative COVID. Patient admitted to inpatient services for continuation of work-up. Started previously and was pending further diuresis and stress test. Patient was in agreement with this plan of care. Medical Records Medical records reviewed: Yes I reviewed the patient's medical records. Imaging Data Radiologic Study: Imaging: X-Ray Radiologist's impression: FINDINGS: The heart is mildly enlarged. There is some prominence of the yair bilaterally, consistent with prominent pulmonary vasculature, recent chest CT showed prominence of hilar and mediastinal lymph nodes, nonspecific. There is no focal pulmonary consolidation. Pleural effusions noted on CT are not appreciated on today's examination. IMPRESSION: No evidence of acute change. Lab Data Lab results reviewed: Yes I reviewed the patient's lab results. HPI General Date/Time Provider Initiated Documentation: 11/17/21 11:45. Limitations to Documentation: no limitations. Information obtained by: patient, RN notes reviewed and old records reviewed. History of Present Illness 56 year old M presents to the emergency department with the chief complaint of Chest pain, described as moderate and similar to prior episodes, with intensity rated at 7. Quality is described as aching and constant, and is localized to the chest. Patient reports no radiation. Patient started experiencing this day(s) (5) and it has been constant. No relieving factors improve symptom(s), No exacerbating factors reported . Patient notes malaise; denies fever/chills. Patient did receive the following treatments prior to arrival, none Related Data Home Medications Medication Instructions Recorded Confirmed albuterol 90 mcg/actuation aerosol 90 mcg inhalation BID 11/11/21 11/17/21 inhaler atorvastatin 80 mg tablet 80 mg PO DAILY 11/11/21 11/17/21 baclofen 10 mg tablet 10 mg PO BID 11/11/21 11/17/21 fluoxetine 60 mg tablet 60 mg PO DAILY 11/11/21 11/17/21 fluticasone 100 mcg-salmeterol 50 100 inh inhalation BID 11/11/21 11/17/21 mcg/dose blistr powdr for inhalation (Advair Diskus) hydroxyzine HCl 25 mg tablet 25 mg PO TID PRN 11/11/21 11/17/21 meloxicam 7.5 mg tablet 7.5 mg PO DAILY 11/11/21 11/17/21 omeprazole 20 mg capsule,delayed 20 mg PO BID 11/11/21 11/17/21 release metoprolol succinate 25 mg 25 mg PO DAILY #30 tabs 11/18/21 tablet,extended release 24 hr (Toprol XL) sacubitril 24 mg-valsartan 26 mg 1 ea PO BID #60 tabs 11/18/21 tablet (Entresto) Previous Rx's Medication Instructions Recorded metoprolol succinate 25 mg 25 mg PO DAILY #30 tabs 11/18/21 tablet,extended release 24 hr (Toprol XL) sacubitril 24 mg-valsartan 26 mg 1 ea PO BID #60 tabs 11/18/21 tablet (Entresto) Allergies Allergy/AdvReac Type Severity Reaction Status Date / Time streptomycin Allergy Severe Swelling/Ed Unverified 11/17/21 11:37 cayetano pregabalin [From Lyrica] Allergy Unverified 11/17/21 11:37 General Stated Complaint: Chest Pain XANDER: 2 Review of Systems Constitutional Constitutional: Reports chills, Denies fever(s) and Reports malaise Cardiovascular Cardiovascular: Reports as per HPI, Reports chest pain, Reports chest pain with activity, Denies syncope, Denies irregular heart rhythm, Denies leg edema, Denies palpitations, Reports dyspnea and Reports dyspnea on exertion Respiratory Respiratory: Denies cough, Denies hemoptysis, Reports dyspnea and Reports dyspnea on exertion Gastrointestinal Gastrointestinal: Denies abdominal pain, Denies nausea and Denies vomiting Musculoskeletal Musculoskeletal: Denies back pain Neurologic Neurologic: Denies syncope Psychiatric Psychiatric: Denies anxiety Endocrine Endocrine: Denies cold intolerance, Denies heat intolerance and Denies palpitations PFSH All Active Problems (Updated 11/17/21 @ 14:49 by Adithya Merrill NP) COPD (chronic obstructive pulmonary disease) (Chronic) Discharge planning issues (Acute) DVT prophylaxis (Acute) Acute on chronic systolic CHF (congestive heart failure) (Acute) Bilateral pleural effusion (Acute) Thoracic lymphadenopathy (Chronic) Scrotal pain (Acute) COPD suggested by initial evaluation (Acute) CHF (congestive heart failure) (Chronic) Scrotal pain (Acute) Acute epididymitis (Acute) Atypical chest pain (Acute) CAD (coronary artery disease), [place] coronary artery (Chronic) Anemia (Chronic) Status post lumbar laminectomy (Acute) DJD (degenerative joint disease), lumbar (Acute) Mediastinal adenopathy (Acute) Sarcoid (Chronic) Chronic GERD (Acute) Elevated brain natriuretic peptide (BNP) level (Acute) Enlarged heart (Acute) Pleural effusion, right (Acute) Social History Smoking/Tobacco Use Status: Former Tobacco Use Smoking risk assessment performed?: Yes Alcohol Intake: former Substance use type: does not use Do you feel safe at home: Yes Do you feel safe in your relationship?: Yes Exam Const General: cooperative, healthy appearing, comfortable, no acute distress and not diaphoretic Nutritional Appearance: average body habitus Orientation: alert, awake and oriented x3 Limitations: mental status not altered Neck Neck: normal visual inspection, full ROM, trachea midline, supple and no anterior neck swelling Thyroid: thyroid normal Carotids: normal carotid upstroke and no bruits Resp Effort & Inspection: normal respiratory effort, able to speak in complete sentences and no cough Auscultation: crackles on the left at the base and diminished lung sounds on the left in the lower lung alfaro Cardio Jugular venous pressure: no JVD Palpation: normal PMI Rate: regular rate Rhythm: regular rhythm Heart Sounds: S1 normal, S2 normal, no click, no gallops, no murmurs and no rubs Bruits: no abdominal aortic bruits and no carotid bruits Pulses: radial pulses present bilaterally 2+ GI Inspection: normal to inspection Palpation: soft, no aortic enlargement, no pulsatile masses and nontender Auscultation: normal bowel sounds Skin General skin exam: no rashes or lesions noted Neuro General: patient alert, patient awake, patient oriented x3, tone normal and moves all extremities Course Vital Signs Vital signs: Vital Signs Temperature 36.8 C 11/17/21 11:30 Pulse 95 H 11/17/21 11:30 Respiratory Rate 16 11/17/21 11:30 Blood Pressure 124/81 11/17/21 11:30 Pulse Oximetry 96 11/17/21 11:30 Temperature 36.8 C 11/17/21 11:30 Pulse 83 11/17/21 12:30 Pulse 88 11/17/21 12:40 Respiratory Rate 17 11/17/21 12:40 Respiratory Effort 11/17/21 11:35 Respiratory Depth Normal 11/17/21 11:35 Respiratory Pattern Normal 11/17/21 11:35 Blood Pressure 127/82 11/17/21 12:30 Blood Pressure Mean 91 11/17/21 12:30 Pulse Oximetry 94 11/17/21 12:40 Pain Level 5 11/17/21 11:35 Lab/Test Results Lab/Test Results: Laboratory Tests Range/Units 11/17/21 11/17/21 11/17/21 11:45 11:45 12:08 WBC (4.4-10.8) 10^3/uL 11.65 H RBC (4.36-5.78) 10^6/uL 4.97 Hgb (13.5-17.5) g/dL 15.2 Hct (40.0-50.0) % 44.5 MCV (80-95) fL 90 MCH (27.0-33.0) pg 30.6 MCHC (32.0-36.0) % 34.2 RDW (11.8-14.1) % 12.5 Plt Count (130-400) 10^3/uL 371 MPV (8.0-11.0) fL 9.9 Immature Gran % 0.0 Neutrophils % 76.0 Lymphocytes % 8.0 Atypical Lymphs % 2 Monocytes % 13.0 Eosinophils % 0.0 Basophils % 1.0 Nucleated RBC % (0.0-0.3) % 0.0 Absolute Neutrophils (1.2-6.7) 10^3/uL 8.85 H Absolute Lymphocytes (1.2-3.4) 10^3/uL 1.17 L Absolute Monocytes (0.1-0.8) 10^3/uL 1.51 H Absolute Eosinophils (0.0-0.7) 10^3/uL 0.00 Absolute Basophils (0.0-0.2) 10^3/uL 0.12 RBC Morphology Normal Sodium (136-145) mmol/L 138 Potassium (3.5-5.1) mmol/L 3.5 Chloride (98-107) mmol/L 100 Carbon Dioxide (21.0-32.0) mmol/L 28.3 Anion Gap (3-11) mmol/L 9.7 BUN (7-18) mg/dL 28 H Creatinine (0.70-1.30) mg/dL 1.1 Estimated GFR/1.73 m2 (mL/min/1.73m2) >= 60.00 Glucose (74-106) mg/dL 111 H Calcium (8.5-10.1) mg/dL 9.0 Magnesium (1.8-2.4) mg/dL 2.0 Total Bilirubin (0.2-1.0) mg/dL 1.8 H AST (15-37) U/L 22 ALT (16-63) U/L 31 Alkaline Phosphatase (46-116) U/L 95 Troponin I (<or=60) ng/L < 50 Total Protein (6.4-8.2) g/dL 7.6 Albumin (3.4-5.0) g/dL 3.7 COVID-19 Source Nasal/Nares SARS-CoV-2 (PCR) (Negative) Negative
--- NOTE | 2021-11-17 13:49 | W.PM.HP.N ---
Date of service: 11/17/21 Time of Service: 13:49 Assessment and Plan Assessment and plan (1) Atypical chest pain: Status: Acute Assessment and plan: continues to have chest pain, negative troponin and EKG. will readmit for stress test his echo from 11/15/2021: Conclusion Normal left ventricular wall thickness and chamber size.? Estimated ejection fraction is 30%.? There is global hypokinesis Normal right ventricular size and systolic function Left atrium is moderately dilated.? The right atrium is normal in size Trileaflet aortic valve without stenosis or regurgitation Mild mitral annular calcification.? Mildly thickened mitral leaflets.? Moderate to severe mitral regurgitation Normal tricuspid valve with trace regurgitation.? Estimated right ventricular systolic pressure is [address] Serrato History of Present Illness History of Present Illness Chief Complaint: chest pain Narrative: returns to the ED for evaluation of chest pain which has been ongoing. was here a few days ago and was supposed to have a stress test on Monday but left ama prior to completion of work up. his work up in the ED is unremarkable with negative troponin and no acute ST segment changes. He is being readmitted for stress testing. Review of Systems All systems reviewed & are unremarkable except as noted in HPI and below Cardiovascular Cardiovascular: Reports chest pain PFSH All Active Problems (Updated 11/17/21 @ 14:49 by Adithya Merrill NP) COPD (chronic obstructive pulmonary disease) (Chronic) Discharge planning issues (Acute) DVT prophylaxis (Acute) Acute on chronic systolic CHF (congestive heart failure) (Acute) Bilateral pleural effusion (Acute) Thoracic lymphadenopathy (Chronic) Scrotal pain (Acute) COPD suggested by initial evaluation (Acute) CHF (congestive heart failure) (Chronic) Scrotal pain (Acute) Acute epididymitis (Acute) Atypical chest pain (Acute) CAD (coronary artery disease), [place] coronary artery (Chronic) Anemia (Chronic) Status post lumbar laminectomy (Acute) DJD (degenerative joint disease), lumbar (Acute) Mediastinal adenopathy (Acute) Sarcoid (Chronic) Chronic GERD (Acute) Elevated brain natriuretic peptide (BNP) level (Acute) Enlarged heart (Acute) Pleural effusion, right (Acute) Social History Smoking/Tobacco Use Status: Former Tobacco Use Smoking risk assessment performed?: Yes Alcohol Intake: former Substance use type: does not use Do you feel safe at home: Yes Do you feel safe in your relationship?: Yes Meds Allergies and Home Medications Allergies Allergy/AdvReac Type Severity Reaction Status Date / Time streptomycin Allergy Severe Swelling/Ed Unverified 11/17/21 11:37 [place] pregabalin [From Lyrica] Allergy Unverified 11/17/21 11:37 Home Medications Medication Instructions Recorded Confirmed Type albuterol 90 mcg/actuation aerosol 90 mcg inhalation BID 11/11/21 11/17/21 History inhaler atorvastatin 80 mg tablet 80 mg PO DAILY 11/11/21 11/17/21 History baclofen 10 mg tablet 10 mg PO BID 11/11/21 11/17/21 History fluoxetine 60 mg tablet 60 mg PO DAILY 11/11/21 11/17/21 History fluticasone 100 mcg-salmeterol 50 100 inh inhalation BID 11/11/21 11/17/21 History mcg/dose blistr powdr for inhalation (Advair Diskus) hydroxyzine HCl 25 mg tablet 25 mg PO TID PRN 11/11/21 11/17/21 History meloxicam 7.5 mg tablet 7.5 mg PO DAILY 11/11/21 11/17/21 History omeprazole 20 mg capsule,delayed 20 mg PO BID 11/11/21 11/17/21 History release Exam Const General: cooperative, comfortable and no acute distress Nutritional Appearance: overweight Orientation: alert, awake and oriented x3 HENMT Head: normal to inspection, normocephalic and atraumatic Neck Neck: normal visual inspection and full ROM Chest Chest: normal inspection of the chest Resp Effort & Inspection: normal respiratory effort and able to speak in complete sentences Auscultation: crackles on the left at the base and diminished lung sounds on the left in the lower lung alfaro Cardio Jugular venous pressure: no JVD Rate: regular rate Rhythm: regular rhythm Heart Sounds: rub GI Inspection: normal to inspection Palpation: soft and nontender Auscultation: normal bowel sounds Skin General skin exam: no rashes or lesions noted Neuro General: patient alert, patient awake, patient oriented x3, tone normal and moves all extremities Extrem General: normal to inspection and full ROM Results Labs Result diagrams: 11/18/21 06:10 11/18/21 06:10 Labs: Laboratory Results - last 24 hr 11/17/21 11/17/21 11/17/21 11:45 11:45 12:08 WBC 11.65 H RBC 4.97 Hgb 15.2 Hct 44.5 MCV 90 MCH 30.6 MCHC 34.2 RDW 12.5 Plt Count 371 MPV 9.9 Immature Gran % 0.0 Neutrophils % 76.0 Lymphocytes % 8.0 Atypical Lymphs % 2 Monocytes % 13.0 Eosinophils % 0.0 Basophils % 1.0 Nucleated RBC % 0.0 Absolute Neutrophils 8.85 H Absolute Lymphocytes 1.17 L Absolute Monocytes 1.51 H Absolute Eosinophils 0.00 Absolute Basophils 0.12 RBC Morphology Normal Sodium 138 Potassium 3.5 Chloride 100 Carbon Dioxide 28.3 Anion Gap 9.7 BUN 28 H Creatinine 1.1 Estimated GFR/1.73 m2 >= 60.00 Glucose 111 H Calcium 9.0 Magnesium 2.0 Total Bilirubin 1.8 H AST 22 ALT 31 Alkaline Phosphatase 95 Troponin I < 50 Total Protein 7.6 Albumin 3.7 COVID-19 Source Nasal/Nares SARS-CoV-2 (PCR) Negative Last Vital Signs Temp 36.8 C 11/17/21 11:30 Pulse 79 11/17/21 12:45 Resp 8 L 11/17/21 13:30 BP 113/84 11/17/21 12:45 Pulse Ox 96 11/17/21 13:40
--- NOTE | 2021-11-17 13:53 | NUR.NOTE ---
[facility] to give [facility]. Passed along information that patient left AMA from previous admission because his family was not updated.Nursing Note:
[2021-11-17 15:09] LABS: Troponin I < 50 ng/L (<or=60)
[2021-11-17] MEDS: Baclofen 10 MG TAB PO (19:51)
[2021-11-17] MEDS: Budesonide/Formoterol 80/4.5 6.9 GM 60 PUFF INH IH (19:52)
[2021-11-17] MEDS: Omeprazole 20 MG CAPCR PO (19:52)
[2021-11-17] MEDS: hydrOXYzine HCL 25 MG TAB PO (22:29)
[2021-11-18] VITALS: PULSE 87
[2021-11-18] MEDS: Melatonin 3 MG TAB 6 MG PO (00:10)
[2021-11-18 03:22] VITALS: BP 124/81; PULSE 89; RESP 12; TEMP 35.8; O2SAT 96
[2021-11-18 07:00] VITALS: PULSE 86
[2021-11-18 07:25] VITALS: BP 109/75; PULSE 90; RESP 18; TEMP 36.6; O2SAT 95
[2021-11-18] MEDS: Budesonide/Formoterol 80/4.5 6.9 GM 60 PUFF INH IH (07:35)
[2021-11-18 07:40] LABS: Abs Immature Grans 0.05 10^3/uL (0.0-0.06); Absolute Basophil Count 0.07 10^3/uL (0.0-0.2); Absolute Eosinophil Count 0.34 10^3/uL (0.0-0.7); Absolute Monocyte Count 1.85 10^3/uL (0.1-0.8); Basophils % 0.6; Eosinophils % 3.1; Immature Grans % 0.5; Lymphocytes % 22.9; MCH 30.8 pg (27.0-33.0); MCHC 34.9 % (32.0-36.0); MCV 88 fL (80-95); MPV 10.5 fL (8.0-11.0); Neutrophils % 55.9; Platelet Count 352 10^3/uL (130-400); RBC 4.87 10^6/uL (4.36-5.78); RDW 12.5 % (11.8-14.1); RDW-SD 40.8 fL; WBC 10.91 10^3/uL (4.4-10.8)
[2021-11-18 07:54] LABS: BUN 23 mg/dL (7-18); CREATININE 1.1 mg/dL (0.70-1.30); Calcium 8.6 mg/dL (8.5-10.1); Chloride 100 mmol/L (98-107); Glucose 90 mg/dL (74-106); Potassium 3.1 mmol/L (3.5-5.1); Sodium 136 mmol/L (136-145); Troponin I < 50 ng/L (<or=60)
[2021-11-18 08:00] LABS: Diff Comment Diff Reviewed; RBC Morphology Normal
[2021-11-18] MEDS: Omeprazole 20 MG CAPCR PO (08:45)
[2021-11-18] MEDS: Meloxicam 15 MG TAB 7.5 MG PO (08:45)
[2021-11-18] MEDS: Baclofen 10 MG TAB PO (08:45)
[2021-11-18] MEDS: Atorvastatin 40 MG TAB 80 MG PO (08:45)
[2021-11-18] MEDS: FLUoxetine 20 MG CAP 60 MG PO (08:46)
--- NOTE | 2021-11-18 09:53 | W.PM.DS.N ---
Date of service: 11/18/21 Time of Service: 09:53 DS: Diagnosis Discharge Diagnosis (1) Atypical chest pain: Status: Acute Discharge Plan Disposition Patient Disposition: [facility] Condition: Stable Discharge Details Reason For Visit: Chest Pain Admit Date/Time: 11/17/21 13:48 Admit Provider: Gamaliel Serrato Attending Provider: Gamaliel Serrato Primary Care Provider: Jared Glez Hospital Course Hospital Course: This is a 56 year old male patient who is residing at the local correctional facility who was recently admitted to chest pain rule out PA, who did have an echo which showed cardiomyopathy with reduced EF at 30% who left AMA prior to having stress test who presented back to the ED for evaluation of ongoing chest pain. HE was referred to observation again for stress testing which unfortunately was not available at this time. His troponins cycled and his EKG remained unremarkable with no acute ST segment findings. He will be scheduled for outpatient stress testing and initiated on goal directed therapy for heart failure with entresto and toprol XL, consider jardiance. He should be followed up outpatient for further evaluation and recommendations after his stress test, sooner for new or worsening symptoms. discussed with DR Serrato. Home Meds and New Rx's Prescriptions: New Entresto 24-26 mg Tablet 1 ea PO BID Qty: 60 0RF metoprolol succinate [Toprol XL] 25 mg tablet extended release 24 hr 25 mg PO DAILY Qty: 30 0RF Rx Instructions: if sbp above 100 and HR above 55 Continued atorvastatin 80 mg Tablet 80 mg PO DAILY meloxicam 7.5 mg Tablet 7.5 mg PO DAILY baclofen 10 mg Tablet 10 mg PO BID omeprazole 20 mg Capsule,Delayed Release(Dr/Ec) 20 mg PO BID hydroxyzine HCl 25 mg Tablet 25 mg PO TID PRN albuterol 90 mcg/actuation Aerosol 90 mcg INHALATION BID fluticasone propion-salmeterol [Advair Diskus] 100-50 mcg/dose Blister With Device 100 inh INHALATION BID fluoxetine 60 mg Tablet 60 mg PO DAILY Discharge Instructions Instructions: Heart Failure (DC), Chest Pain (DC), Nuclear Stress Test (DC) Stand Alone Forms: Nursing Discharge Form Referrals: Jared Glez [Primary Care Provider] - Activity:: Activity as Tolerated Equipment/Supplies:: No Equipment Needed Diet:: Low Sodium Discharge Orders Discharge Orders: Discharge Order (Routine); Ordered 11/18/21 Ordered By: Melony Tobias Other Ambulatory Orders: NM MPI rest & stress grp (Routine) Location: None Selected Ordered By: Melony Tobias Discharge Data Discharge Date/Time-TO BE ENTERED AT DEPARTURE: 11/18/21 11:14 DS: Summary Time Spent with Patient providing and/or coordinating discharge services: Less than 30 minutes Status at Discharge Functional status at discharge: independent ambulation Overall status at discharge: patient is not back to baseline Mental Status: mental status grossly normal Speech and Movement: speech and movement normal Mood: congruent mood Affect: normal affect Exam Const General: cooperative, comfortable and no acute distress Nutritional Appearance: overweight Orientation: alert, awake and oriented x3 HENMT Head: normal to inspection, normocephalic and atraumatic Neck Neck: normal visual inspection and full ROM Chest Chest: normal inspection of the chest Resp Effort & Inspection: normal respiratory effort and able to speak in complete sentences Auscultation: crackles on the left at the base and diminished lung sounds on the left in the lower lung alfaro Cardio Jugular venous pressure: no JVD Rate: regular rate Rhythm: regular rhythm GI Inspection: normal to inspection Palpation: soft and nontender Auscultation: normal bowel sounds Skin General skin exam: no rashes or lesions noted Neuro General: patient alert, patient awake, patient oriented x3, tone normal and moves all extremities Extrem General: normal to inspection and full ROM Psych Mental Status: mental status grossly normal Speech and Movement: speech and movement normal Mood: congruent mood Affect: normal affect DS: Data Vitals/I&O Vitals and I&O: Vital Signs Temperature 36.6 C 11/18/21 07:25 Temperature Source Tympanic 11/18/21 07:25 Pulse 90 11/18/21 07:25 Pulse Rhythm Regular 11/18/21 03:12 Pulse 83 11/17/21 14:50 Respiratory Rate 18 11/18/21 07:25 Respiratory Effort Non-Labored 11/18/21 03:12 Respiratory Depth Normal 11/18/21 03:12 Respiratory Pattern Normal 11/18/21 03:12 Blood Pressure 109/75 11/18/21 07:25 Blood Pressure Mean 90 11/17/21 12:45 Pulse Oximetry 95 11/18/21 07:25 Oxygen Delivery Method Room Air 11/18/21 07:25 Oxygen Flow Rate 0 11/18/21 07:25 Pain Level 8 11/18/21 09:00 Intake & Output 11/17/21 11/17/21 11/18/21 11:59 23:59 11:59 Intake Total 120 / 120 0 / 0 Output Total 800 / 800 1500 / 1500 Balance -680 / -680 -1500 / -1500 Weight 82.554 kg Intake: Oral 120 / 120 0 / 0 Output: Urine 800 / 800 1500 / 1500 Other: Urine Color Yellow Yellow [place] Urine Appearance Clear Clear Urine Odor None Strong Voiding Methods Toilet Toilet Data Completed and Pending Labs on day of discharge: Labs from last 24 hours 11/18/21 11/18/21 11/17/21 06:10 06:10 14:45 WBC 10.91 H RBC 4.87 Hgb 15.0 Hct 43.0 MCV 88 MCH 30.8 MCHC 34.9 D RDW 12.5 Plt Count 352 MPV 10.5 Immature Gran % 0.5 Neutrophils % 55.9 Lymphocytes % 22.9 Atypical Lymphs % Monocytes % 17.0 Eosinophils % 3.1 Basophils % 0.6 Nucleated RBC % 0.0 Absolute Neutrophils 6.10 Absolute Lymphocytes 2.50 Absolute Monocytes 1.85 H Absolute Eosinophils 0.34 Absolute Basophils 0.07 RBC Morphology Normal Sodium 136 Potassium 3.1 L Chloride 100 Carbon Dioxide 29.0 Anion Gap 7.0 BUN 23 H Creatinine 1.1 Estimated GFR/1.73 m2 >= 60.00 Glucose 90 Calcium 8.6 Magnesium Total Bilirubin AST ALT Alkaline Phosphatase Troponin I < 50 < 50 Total Protein Albumin COVID-19 Source SARS-CoV-2 (PCR) 11/17/21 11/17/21 11/17/21 12:08 11:45 11:45 WBC 11.65 H RBC 4.97 Hgb 15.2 Hct 44.5 MCV 90 MCH 30.6 MCHC 34.2 RDW 12.5 Plt Count 371 MPV 9.9 Immature Gran % 0.0 Neutrophils % 76.0 Lymphocytes % 8.0 Atypical Lymphs % 2 Monocytes % 13.0 Eosinophils % 0.0 Basophils % 1.0 Nucleated RBC % 0.0 Absolute Neutrophils 8.85 H Absolute Lymphocytes 1.17 L Absolute Monocytes 1.51 H Absolute Eosinophils 0.00 Absolute Basophils 0.12 RBC Morphology Normal Sodium 138 Potassium 3.5 Chloride 100 Carbon Dioxide 28.3 Anion Gap 9.7 BUN 28 H Creatinine 1.1 Estimated GFR/1.73 m2 >= 60.00 Glucose 111 H Calcium 9.0 Magnesium 2.0 Total Bilirubin 1.8 H AST 22 ALT 31 Alkaline Phosphatase 95 Troponin I < 50 Total Protein 7.6 Albumin 3.7 COVID-19 Source Nasal/Nares SARS-CoV-2 (PCR) Negative PFSH All Active Problems (Updated 11/17/21 @ 14:49 by Adithya Merrill NP) COPD (chronic obstructive pulmonary disease) (Chronic) Discharge planning issues (Acute) DVT prophylaxis (Acute) Acute on chronic systolic CHF (congestive heart failure) (Acute) Bilateral pleural effusion (Acute) Thoracic lymphadenopathy (Chronic) Scrotal pain (Acute) COPD suggested by initial evaluation (Acute) CHF (congestive heart failure) (Chronic) Scrotal pain (Acute) Acute epididymitis (Acute) Atypical chest pain (Acute) CAD (coronary artery disease), [place] coronary artery (Chronic) Anemia (Chronic) Status post lumbar laminectomy (Acute) DJD (degenerative joint disease), lumbar (Acute) Mediastinal adenopathy (Acute) Sarcoid (Chronic) Chronic GERD (Acute) Elevated brain natriuretic peptide (BNP) level (Acute) Enlarged heart (Acute) Pleural effusion, right (Acute) Social History Smoking/Tobacco Use Status: Former Tobacco Use Smoking risk assessment performed?: Yes Alcohol Intake: former Substance use type: does not use Do you feel safe at home: Yes Do you feel safe in your relationship?: Yes
[2021-11-18] MEDS: Sacubitril/Valsartan 24 mg/26 mg TAB 1 EACH PO (10:31)
[2021-11-18] MEDS: Potassium Chloride 20 MEQ TABCR 40 MEQ PO (10:50)
== END 2021-11-18 11:14 | disposition home or self-care (01) ==
LOC: ER 14:49 → MS 15:34
PROVIDERS: Nurse Practitioner Acute Care; Admitting Provider Family Medicine; Emergency Provider Nurse Practitioner Family; Visit Provider Family Medicine
DX: I50.23 Acute on chronic systolic (congestive) heart failure (principal); R94.31 Abnormal electrocardiogram [ECG] [EKG]; R07.89 Other chest pain; R06.02 Shortness of breath; R59.0 Localized enlarged lymph nodes; J44.9 Chronic obstructive pulmonary disease, unspecified; I25.10 Atherosclerotic heart disease of native coronary artery without angina pectoris; D64.9 Anemia, unspecified; M47.816 Spondylosis without myelopathy or radiculopathy, lumbar region; K21.9 Gastro-esophageal reflux disease without esophagitis; Z87.891 Personal history of nicotine dependence; I34.0 Nonrheumatic mitral (valve) insufficiency; Z20.822 Contact with and (suspected) exposure to COVID-19; I42.9 Cardiomyopathy, unspecified; Z79.899 Other long term (current) drug therapy
CPT/HCPCS: 36415; 80048; 80053; 87635; 93005; 94640; 99285; 71046; 83735; 84484; 85025; 93010; 99217; 99219; G0378

== ENCOUNTER → 2021-12-14 01:55 | Outpatient (CLI) | payer OTHER, SELFPAY ==
--- NOTE | 2021-12-14 08:45 | DI.NM_ITS ---
APPROVED REPORT Exam: Pharmacologic Patient Location: Out-Patient Room/Bed: Stress Nurse: Paula Sunshine RN Ordering Provider:HAYLEE ALEXANDRE, Contact Number: [phone] BMI: 29.53 Baseline Rhythm: Sinus Rhythm Indications: New Heart failure, CHF Medical History Medical History: Atypical CP, COPD, Acute on chronic CHF, CAD, anemia, enlarged heart, HLD Cardiac Medications: Omeprazole, Metoprolol Succinate, Atorvastatin, Sacubitril-Valsartan Allergies: Pregabalin, Streptomycin Cardiac Risk Factors: Family history, HLD, CVD, COPD, Former smoker Previous Cardiac Procedures: Stents (over 20 years ago) Pretest Chest Pain Characteristics: None Exercise History: Sedentary Lung Sounds: LCTA Heart Sounds: S1/S2, regular Stress Test Details Test: Pharmacologic stress testing performed using 0.4 mg of regadenoson per 5 mL given IV over 10 s econds. Reason for pharmacologic stress test: physical limitation. Rest Isotope: Tc-99m Sestamibi. Dose: 10 Date: 12/14/2021 Injection Time: 08:49 am Stress Isotope: Tc-99m Sestamibi. Dose: 32 Date: 12/14/2021 Injection Time: 10:45 am HR Resting HR Supine: 94 bpm Max Heart Rate (APMHR): 162.842828 bpm Target HR (85% APMHR): 137.598464 bpm Max HR Achieved: 98 bpm % of APMHR: 60.49 Recovery HR: 94 bpm BP Resting BP Supine: 108/74 mmHg Max BP: 110/70 mmHg Recovery BP: 102/76 mmHg ECG Resting ECG: Sinus Rhythm Ectopy: PVC's Stress ECG: Sinus Rhythm ST Change: No significant ST segment changes noted Arrhythmia: PVC's Recovery ECG: Sinus Rhythm Recovery ST Change: No significant ST segment changes noted Lead(s): I Recovery Arrhythmia: PVC's Clinical Stress Symptoms: Dyspnea Angina Score: None Rate Pressure Product: [id number] Stress ECG Conclusion 1. Resting electrocardiogram showed a left bundle branch block 2. Patient underwent testing using pharmacologic stress with regadenoson 3. Peak heart rate achieved was 60% of predicted for age 4. The test was nondiagnostic electrocardiographically due to abnormal baseline EKG and inadequate he art rate 5. See MPI report Stress Test Summary STAGE HR BP SpO2 Symptoms NOTES Supine 94 108/74 1 min post Lexiscan injection 94 104/72 moderate shortness of breath 3 min post Lexiscan injection 95 110/70 shortness of breath resolved 6 min post Lexiscan injection 95 102/76 95% PT presented to the stress lab accompanied by two correctional officers. A laying pharmalogical test was performed. Patient did not want to utilize the treadmill due to his shortness of breath but due t o circumstances patient also only had on slippers that would make utilizing the treadmill unsafe. Wen erated test well. MPI Conclusion Within the limits of the study myocardial perfusion appears grossly normal without evidence of ischem ia or prior infarction The LV is dilated, EF is 15%, severe global hypokinesis Radiologist Interpretation Radiologist Interpretation by: North Liang MD Interpretation Date/Time: 12/14/2021 17:17:38
[2021-12-14] MEDS: Regadenoson 0.4 MG/5 ML SYR IVP (12:03)
== END ==
PROVIDERS: Visit Provider Nurse Practitioner Acute Care
DX: I50.9 Heart failure, unspecified (principal)
CPT/HCPCS: 78452; 93017; J2785

== ENCOUNTER 2021-12-28 04:05 | Inpatient (IN) | payer MEDICAID, SELFPAY ==
[2021-12-28] VITALS (133 sets, daily range): BP systolic 69–133; BP diastolic 22–104; PULSE 85–208; RESP 1–45; TEMP 36.1–37.2; O2SAT 83–100
--- NOTE | 2021-12-28 | DI.US_ITS ---
APPROVED REPORT EXAM: Comprehensive 2D, Doppler, and color-flow Echocardiogram Patient Location: In-Patient Room/Bed: [id number] Volleyball Coach: Tamiko Cline RDCS (AE) Indications: CHF. Acute respiratory failure Other Information Study Quality: Adequate. Technically limited study due to inability to position patient exam done sup ine, patient on ventilator. Conclusion Normal left ventricular wall thickness and chamber size. Estimated ejection fraction is 20 to 25%. There is severe global hypokinesis Right ventricle is dilated and mildly hypocontractile The right atrium is moderately dilated. The left atrium is mildly dilated Thickened mitral leaflets, mild mitral regurgitation Normal tricuspid valve with trace to mild regurgitation. Estimated right ventricular systolic pressu re is 28 mmHg Wall motion Left Ventricle The left ventricle is normal size. Left ventricular systolic function is severely decreased. There is normal left ventricular wall thickness. There is global hypokinesis of the left ventricle. LVEF is 2 0-25%. Right Ventricle Right ventricle is mild to moderately dilated. Right ventricle is mildly hypokinetic. Atria Left atrium is mildly dilated. Right atrium is moderately dilated. Aortic Valve Aortic valve is trileaflet. Mitral Valve Mitral valve leaflets are thickened. Mild mitral regurgitation. Tricuspid Valve The tricuspid valve is normal in structure. Trace to mild tricuspid regurgitation. 2D Dimensions IVSD d PLAX 0.89 cm M: 0.6-1.2 LV Vol A2C d MOD 162.7 mL LVPW d PLAX 0.85 cm M: 0.6 - 1.2 LV Vol A4C d MOD 131.5 mL LVID d PLAX 5.57 cm M: 4.2 - 5.8 LA vol/ BSA A2C s A-L 29.5 mL/m2 LVDs 5.05 cm M: 2.5 - 4.0 LA vol/ BSA A4C s A-L 34.4 mL/m2 LV EF Teichholz 19.7 % LA Vol/ BSA Biplane s A-L 35.4 mL/m2 LVEF (Louis's) 16.66 % M: 52 - 72 LA Area A4C s MOD 22.38 cm2 LV Volume 114.50 mL M: 62 - 150 LA Area A2C s MOD 18.62 cm2 LV Volume Index 59.94 mL/m2 M: 34 - 74 LV EF A4C MOD 17.1 % LV Vol Biplane MOD 150.4 mL LV EF A2C MOD 21.9 % FS 9.05 % LV EF Biplane MOD 16.7 % SV 25.06 mL SV Index 13.10 mL/m2 Tricuspid Valve TR Peak Grad 31.8 mmHg TR Vmax 2.82 m/s
--- NOTE | 2021-12-28 | DI.CT_ITS ---
Exam(s) CT CHEST PE CTA EXAM: CT CHEST PE CTA CLINICAL HISTORY: resp failure. TECHNIQUE: Imaging Protocol: Axial CT angiography was performed with multi-slice acquisition and mu lti-planar reconstructions as well as axial, coronal and sagittal MIP reconstructions. CONTRAST MATERIAL: Intravenous: Omnipaque 350 Contrast volume:95 ml COMPARISON: CT CT THORAX ABD/PEL CTA from 11/11/2021 CR XR CHEST 2V PA LATERAL from 11/17/2021 CT,NM,TMT NM MPI REST STRESS GRP from 12/14/2021 CR XR PORTABLE CHEST AP from 12/28/2021 FINDINGS: The exam is limited by patient motion. Pulmonary Arteries: No evidence of filling defect to suggest pulmonary emboli. Smaller pulmonary toya floyd are not well evaluated due to motion. Main pulmonary artery dilated to 2.9 cm. The right and lef t main pulmonary arteries and branch vessels also prominent. Findings could represent underlying pulm onary hypertension. Tracheobronchial tree: Patent where visualized. Mediastinum and Alie: Stable or slight decrease in size of adenopathy seen in this right paratracheal , para-aortic and subcarinal as well as bilateral hilar regions. Pulmonary parenchyma: Bibasilar densities, presumed atelectasis. Pneumonia not excluded. Minimally in creased scattered patchy pulmonary densities are noted in the upper lobes should be infectious or inf lammatory infiltrates. Pulmonary parenchyma difficult to evaluate due to respiratory motion. Pleura: No effusion or pneumothorax. Heart: The heart is dilated. No coronary artery calcifications are seen. Aorta: Thoracic aorta non-dilated. No aneurysm. No dissection. Upper abdomen: Unremarkable. Bones: No acute fracture or evidence of lytic or blastic lesion. Degenerative disc changes. Stable mi ld anterior wedging of mid thoracic vertebral bodies. Tubes, Catheters, and Lines: Endotracheal tube position above the [place]. Nasogastric tube projectin g in stomach. Left internal jugular central venous catheter with tip in lower SVC. IMPRESSION: Exam limited by respiratory motion. No gross evidence of pulmonary emboli. There is stable or mildly decreased hilar and mediastinal adenopathy. Stable pulmonary artery prominence could be secondary to pulmonary hypertension. Bibasilar densities could represent atelectasis versus infiltrates. Other scattered mild upper lobe i nfiltrates. RADIATION DOSE DELIVERED: 411.57mGy.cm Total DLP DATA REPOSITORY: All CT scans at this facility are submitted to the National Radiology Data Registry (NRDR) Dose Index Registry (DIR) with the [employer] ([employer]). RADIATION OPTIMIZATION: All CT scans at this facility use at least one of these dose optimization te chniques: automated exposure control; mA and/or kV adjustment per patient size (includes targeted exa ms where dose is matched to clinical indication); or iterative reconstruction.
--- NOTE | 2021-12-28 03:57 | RT.EKG_ITS ---
APPROVED REPORT Exam: Resting ECG Reason for Exam: dyspnea Patient Location: E HR:116 bpm ECG Measurements Heart Rate 116 AXIS LA 162 P 79 QRSd 131 QRS 57 QT 348 T 241 QTc 484 Conclusion Sinus tachycardia...rate> 99 Probable left atrial enlargement...P >50mS, <-0.10mV V1 Left bundle branch block...QRSd>120, broad/notched R no stemi, motion artifact
--- NOTE | 2021-12-28 04:21 | W.ED.GENAD ---
Discharge Plan Disposition Patient Disposition: [facility] INPATIENT Condition: Critical Discharge Details Clinical Impression: Acute respiratory failure, COPD suggested by initial evaluation, Shortness of breath Primary Care Provider: Jared Glez ED Provider: Stanley Velásquez Home Meds and New Rx's Prescriptions: No Action atorvastatin 80 mg Tablet 80 mg PO DAILY meloxicam 7.5 mg Tablet 7.5 mg PO DAILY baclofen 10 mg Tablet 10 mg PO BID omeprazole 20 mg Capsule,Delayed Release(Dr/Ec) 20 mg PO BID hydroxyzine HCl 25 mg Tablet 25 mg PO TID PRN albuterol 90 mcg/actuation Aerosol 90 mcg INHALATION BID fluticasone propion-salmeterol [Advair Diskus] 100-50 mcg/dose Blister With Device 100 inh INHALATION BID fluoxetine 60 mg Tablet 60 mg PO DAILY Entresto 24-26 mg Tablet 1 ea PO BID Qty: 60 0RF metoprolol succinate [Toprol XL] 25 mg tablet extended release 24 hr 25 mg PO DAILY Qty: 30 0RF Rx Instructions: if sbp above 100 and HR above 55 Medical Decision Making 56 yo male with hx of cad, chf, copd, recent admissions for chest pain, [facility] with chest pain and dyspnea he states has been worsening since yesterday. HE states he has a tightness across his chest that does not radiate and feels short of breath. He denies any fevers or cough. He arrives appearing very anxious and hyperventilating. His room air saturation on arrival is 94%. He is not diaphoretic on my exam. He has no jvd, mild pitting edema of his lower legs to the mid tibia bilaterally, no calf tenderness. He has diminished breath sounds at the bases bilaterally, on bedside u/s has diminished EF approximately 20-30% similar to his recent echo, no pericardial effusion. He has minimal b lines at the bases bilaterally. Given his history will obtain ekg and troponin to evaluate for acs. Will also obtain cxr. He has no findings on exam to suggest dvt and no pleuritic pain so doubt PE. Will obtain cbc, probnp, cmp. Given the b lines will give a dose of lasix. Mild apical wheezing bilaterally, will treat as possible copd exacerbation with methylprednisolone and duoneb. HE is tachypneic and given the work of breathing will trial on bipap and to help accommodate this give a dose of ativan as I don't feel he is going to tolerate bipap with his current anxiety pt did not tolerate the bipap and became more somnolent and wasn't protecting his airway, oxygen saturation was in the 80;s, given concern for airway protection and is tenuous respiratory status decision was made to intubate. This was done using the cmac after 100mg rocuronium and 20mg etomidate was given, grade 1 view was obtained and passed the ET tube on first attempt without complications, good end tidal return. He does appear to have more wheezing now that he is being ventilated in both lungs so suspect copd exacerbation, will continue with nebs. Given his severity of illness will also initiate broad spectrum abx with vanco and zosyn given he was recently hospitalized. pt ventilated and stable on propofol drip, hr 113, o2 saturation 99% on fio2 of 60, bp 111/78. labs remarkable for lactate of 13, wbc of 15, negative troponin. He has increase in his lft's and had an u/s in October that did not show evidence of cholecystitis. His abdomen is soft and nondistended, no grimacing or guarding anywhere on abdominal exam so doubt ischemic colitis vs cholecystitis. Will discuss with hospitalist about admission for continued management Differential Diagnosis Differential Diagnosis: acs, chf, anxiety/panic attack Medical Records Medical records reviewed: Yes I reviewed the patient's medical records. Imaging Data Radiologic Study: Attestation: I personally reviewed and interpreted this imaging study as follows: Imaging: X-Ray My impression: ?infiltrate rll Radiologic Study #2: Attestation: I personally reviewed and interpreted this imaging study as follows: Imaging: X-Ray My impression: et tube 1.5cm above the nakita Radiologist's impression: PROCEDURE INFORMATION: Exam: XR Chest Exam date and time: 12/28/2021 5:11 AM Age: 56 years old Clinical indication: Device placement; Other: Post intubation TECHNIQUE: Imaging protocol: Radiologic exam of the chest. Views: 1 view. COMPARISON: CR XR PORTABLE CHEST AP 12/28/2021 4:38 AM FINDINGS: Tubes, catheters and devices: Endotracheal tube approximately 2 cm above the nakita. Lungs: Mild bilateral perihilar prominence may be due to vascular congestion/pulmonary enlargement. Streaky opacities in the left lower lung. Mild central predominant ground-glass densities, best visualized in the right central hilar lung. Pleural spaces: No pneumothorax. No pleural effusion. Heart/Mediastinum: The cardiomediastinal silhouette is within normal limits. Bones/joints: Unremarkable. IMPRESSION: 1. Endotracheal tube approximately 2 cm above the nakita. 2. Possible vascular congestion and pulmonary edema. Lab Data Lab results reviewed: Yes I reviewed the patient's lab results. ECG Data Attestation: I personally reviewed and interpreted this ECG (s) as follows: Prior ECG tracings: available for review Interpretation: sinus tachycardia rate of 116, no stemi though significant motion artifact HPI General Mode of arrival: EMS. Date/Time Provider Initiated Documentation: 12/28/21 04:18. Limitations to Documentation: no limitations. Information obtained by: patient. History of Present Illness 56 year old M presents to the emergency department with the chief complaint of chest pain, described as moderate, Patient started experiencing this day(s) (1) and it has been constant. No relieving factors improve symptom(s), No exacerbating factors reported . Patient notes shortness of breath. Patient did receive the following treatments prior to arrival, none Related Data Home Medications Medication Instructions Recorded Confirmed albuterol 90 mcg/actuation aerosol 90 mcg inhalation BID 11/11/21 11/17/21 inhaler atorvastatin 80 mg tablet 80 mg PO DAILY 11/11/21 11/17/21 baclofen 10 mg tablet 10 mg PO BID 11/11/21 11/17/21 fluoxetine 60 mg tablet 60 mg PO DAILY 11/11/21 11/17/21 fluticasone 100 mcg-salmeterol 50 100 inh inhalation BID 11/11/21 11/17/21 mcg/dose blistr powdr for inhalation (Advair Diskus) hydroxyzine HCl 25 mg tablet 25 mg PO TID PRN 11/11/21 11/17/21 meloxicam 7.5 mg tablet 7.5 mg PO DAILY 11/11/21 11/17/21 omeprazole 20 mg capsule,delayed 20 mg PO BID 11/11/21 11/17/21 release metoprolol succinate 25 mg 25 mg PO DAILY #30 tabs 11/18/21 tablet,extended release 24 hr (Toprol XL) sacubitril 24 mg-valsartan 26 mg 1 ea PO BID #60 tabs 11/18/21 tablet (Entresto) Previous Rx's Medication Instructions Recorded metoprolol succinate 25 mg 25 mg PO DAILY #30 tabs 11/18/21 tablet,extended release 24 hr (Toprol XL) sacubitril 24 mg-valsartan 26 mg 1 ea PO BID #60 tabs 11/18/21 tablet (Entresto) Allergies Allergy/AdvReac Type Severity Reaction Status Date / Time streptomycin Allergy Severe Swelling/Ed Unverified 11/17/21 11:37 cayetano pregabalin [From Lyrica] Allergy Unverified 11/17/21 11:37 General XANDER: 2 Review of Systems All systems reviewed & are unremarkable except as noted in HPI and below Constitutional Constitutional: Denies chills and Denies fever(s) Eyes Eyes: Denies loss of vision Respiratory Respiratory: Denies cough Gastrointestinal Gastrointestinal: Denies nausea and Denies vomiting Genitourinary Genitourinary: Denies dysuria Musculoskeletal Musculoskeletal: Denies joint swelling Integumentary/Breasts Skin/Breast: Denies rash Neurologic Neurologic: Denies loss of vision PFSH All Active Problems (Updated 12/28/21 @ 06:34 by Stanley Velásquez MD) Acute respiratory failure (Acute) Shortness of breath (Acute) COPD (chronic obstructive pulmonary disease) (Chronic) Discharge planning issues (Acute) DVT prophylaxis (Acute) Acute on chronic systolic CHF (congestive heart failure) (Acute) Bilateral pleural effusion (Acute) Thoracic lymphadenopathy (Chronic) Scrotal pain (Acute) COPD suggested by initial evaluation (Acute) CHF (congestive heart failure) (Chronic) Scrotal pain (Acute) Acute epididymitis (Acute) Atypical chest pain (Acute) CAD (coronary artery disease), [place] coronary artery (Chronic) Anemia (Chronic) Status post lumbar laminectomy (Acute) DJD (degenerative joint disease), lumbar (Acute) Mediastinal adenopathy (Acute) Sarcoid (Chronic) Chronic GERD (Acute) Elevated brain natriuretic peptide (BNP) level (Acute) Enlarged heart (Acute) Pleural effusion, right (Acute) Social History Smoking/Tobacco Use Status: Former Tobacco Use Smoking risk assessment performed?: Yes Alcohol Intake: former Substance use type: does not use Do you feel safe at home: Yes Do you feel safe in your relationship?: Yes Exam Const General: anxious Orientation: alert HENMT Head: normal to inspection Ears: external ears normal General nose exam: external nose normal Mouth: moist mucous membranes Eyes General: appearance normal, both eyes and all related structures Neck Neck: normal visual inspection Resp Effort & Inspection: normal respiratory effort and able to speak in complete sentences Cardio Jugular venous pressure: no JVD Rate: tachycardic Skin General skin exam: no rashes or lesions noted Neuro General: patient alert and patient oriented x3 Extrem General: normal to inspection Psych Mental Status: mental status grossly normal Procedures Intubation Time out performed: Yes sedative: Etomidate Mg Given: 20 paralytic: Rocuronium Mg Given: 100 Laryngoscope: other (size 4 cmac blade) ET Tube Size: 7.5 ET Tube Uncuffed: Yes Tube Secured Depth (cm): 25 Tube Secured Location: lips Tube Placement Confirmation: visualized tube passing through cords, equal breath sounds bilaterally and confirmation by capnometry Patient Tolerated Procedure: well and no complications Intubation Complications: none Critical Care Time Critical Care Time Critical Care Time: Yes Total Critical Care Time: 60 (minutes) Attestation: time spent on frequent reassessments and hemodynamic monitoring in a patient with respiratory failure requiring intubation and potential to deteriorate at any time
--- NOTE | 2021-12-28 04:30 | DI.RAD_ITS ---
Exam(s) XR PORTABLE CHEST AP EXAM: XR PORTABLE CHEST AP CLINICAL HISTORY: shortness of breath TECHNIQUE: 2D digital imaging was performed. COMPARISON: CR XR CHEST 2V PA LATERAL from 11/17/2021 FINDINGS: Exam is somewhat limited by poor pulmonary inflation and under penetration. LUNGS: There are mildly increased bilateral diffuse interstitial markings bilaterally which could ind icate mild pulmonary edema. No pleural abnormality seen. HEART: The heart is enlarged. There is pulmonary artery prominence, not significantly changed from t he prior exam. AORTA: Normal. BONES: Unremarkable for age. Soft tissues: Unremarkable. IMPRESSION: Findings suspicious for mild CHF. DATA REPOSITORY: RADIATION DOSE DELIVERED:
[2021-12-28] MEDS: LORazepam 20 MG/10 ML VIAL IVP (04:33)
[2021-12-28 04:46] LABS: Abs Immature Grans 0.84 10^3/uL (0.0-0.06); HGB 14.4 g/dL (13.5-17.5); MCH 28.7 pg (27.0-33.0); MCHC 30.6 % (32.0-36.0); MCV 94 fL (80-95); MPV 11.5 fL (8.0-11.0); Nucleated RBC 0.2 % (0.0-0.3); Platelet Count 330 10^3/uL (130-400); RBC 5.02 10^6/uL (4.36-5.78); RDW 14.7 % (11.8-14.1); RDW-SD 50.6 fL; WBC 15.86 10^3/uL (4.4-10.8)
[2021-12-28 04:48] LABS: Source Nasal/Nares
[2021-12-28] MEDS: Furosemide 20 MG/2 ML VIAL IVP (04:55)
--- NOTE | 2021-12-28 05:11 | DI.RAD_ITS ---
Exam(s) XR PORTABLE CHEST AP POST LINE EXAM: XR PORTABLE CHEST AP POST LINE CLINICAL HISTORY: post intubation TECHNIQUE: 2D digital imaging was performed. COMPARISON: CR,XR XR PORTABLE CHEST AP from 12/28/2021 FINDINGS: Endotracheal tube has been inserted which lies above the nakita, in good position. LUNGS: Mildly increased bilateral interstitial markings suspicious for mild pulmonary edema. No pleu ral abnormality seen. HEART: Enlarged. Stable hilar prominence.. AORTA: Normal. BONES: Unremarkable for age. Soft tissues: Unremarkable. IMPRESSION: Satisfactory placement of endotracheal tube DATA REPOSITORY: RADIATION DOSE DELIVERED:
[2021-12-28] MEDS: PROPOFOL 1,000 MG/100 ML BTL 15.513 MG IVPB ×2 (05:15→10:50)
[2021-12-28 05:19] LABS: COVID-19 PCR Negative (Negative)
[2021-12-28 05:36] LABS: BE (Venous) -20 mmol/L (-2-3); HCO3 (Venous) 11 mmol/L (23-28); O2 Sat (Venous) 39 %; TCO2 (Venous) 12 mmol/l (24-29); pCO2 (Venous) 42 mmHg (41-51)
[2021-12-28 05:38] LABS: pH (Venous) 7.02 (7.31-7.41); pO2 (Venous) 33 mmHg
[2021-12-28] MEDS: Albuterol/Ipratropium 3 ML UPD VIAL UPD ×4 (05:51→20:05)
[2021-12-28] MEDS: Albuterol/Ipratropium 3 ML UPD VIAL (05:51)
[2021-12-28 05:56] LABS: Absolute Eosinophil Count 0.16 10^3/uL (0.0-0.7); Absolute Lymphocyte Count 3.17 10^3/uL (1.2-3.4); Absolute Monocyte Count 1.27 10^3/uL (0.1-0.8); Absolute Neutrophil Count 10.94 10^3/uL (1.2-6.7); Atypical Lymphocytes % 0; Bands % 2; Myelocytes % 2
[2021-12-28 05:57] LABS: Diff Comment Manual Differential; RBC Morphology Normal
[2021-12-28 06:10] LABS: Albumin 3.1 g/dL (3.4-5.0); Alkaline Phosphatase 192 U/L (46-116); Anion Gap 26.6 mmol/L (3-11); BUN 18 mg/dL (7-18); Bilirubin, Total 2.7 mg/dL (0.2-1.0); CO2 12.4 mmol/L (21.0-32.0); CREATININE 2.2 mg/dL (0.70-1.30); Calcium 8.8 mg/dL (8.5-10.1); Chloride 93 mmol/L (98-107); Glucose 73 mg/dL (74-106); Potassium 4.4 mmol/L (3.5-5.1); Sodium 132 mmol/L (136-145); Total Protein 7.3 g/dL (6.4-8.2)
[2021-12-28 06:11] LABS: ALT 327 U/L (16-63); AST 398 U/L (15-37); Bilirubin, Direct 0.9 mg/dL (0.0-0.2); Lipase 53 U/L (73-393); Magnesium 2.3 mg/dL (1.8-2.4); Troponin I < 50 ng/L (<or=60)
[2021-12-28] MEDS: methylPREDNISolone SUCC 125 MG VIAL (06:16)
[2021-12-28 06:17] LABS: FIO2 60; Site Right Radial
[2021-12-28 06:19] LABS: pCO2 40 mmHg (35-45); pO2 172 mmHg (80-105)
[2021-12-28] MEDS: PIPERACILLIN/TAZO 4.5 GM in Normal Saline 100 ML IVPB ×3 (06:23→21:16)
[2021-12-28 06:27] LABS: NT-proBNP > 35000 pg/mL (<300)
[2021-12-28] MEDS: Normal Saline 1,000 ML 1000 ML IV ×2 (06:27→06:40)
--- NOTE | 2021-12-28 06:40 | DI.VRAD_ITS ---
Addendum created by Naga Willoughby MD on 12/28/2021 6:40:41 AM EDT: Additionally the heart appears mildly enlarged for size. Initial report created on 12/28/2021 6:39:59 AM EDT: PROCEDURE INFORMATION: Exam: XR Chest Exam date and time: 12/28/2021 5:11 AM Age: 56 years old Clinical indication: Device placement; Other: Post intubation TECHNIQUE: Imaging protocol: Radiologic exam of the chest. Views: 1 view. COMPARISON: CR XR PORTABLE CHEST AP 12/28/2021 4:38 AM FINDINGS: Tubes, catheters and devices: Endotracheal tube approximately 2 cm above the nakita. Lungs: Mild bilateral perihilar prominence may be due to vascular congestion/pulmonary enlargement. Streaky opacities in the left lower lung. Mild central predominant ground-glass densities, best visualized in the right central hilar lung. Pleural spaces: No pneumothorax. No pleural effusion. Heart/Mediastinum: The cardiomediastinal silhouette is within normal limits. Bones/joints: Unremarkable. IMPRESSION: 1. Endotracheal tube approximately 2 cm above the nakita. 2. Possible vascular congestion and pulmonary edema. Dictated and Authenticated by: Naga Willoughby MD. Ordering:JUNO Angel MD
--- NOTE | 2021-12-28 06:41 | DI.VRAD_ITS ---
PROCEDURE INFORMATION: Exam: XR Chest Exam date and time: 12/28/2021 4:38 AM Age: 56 years old Clinical indication: Shortness of breath TECHNIQUE: Imaging protocol: Radiologic exam of the chest. Views: 1 view. COMPARISON: CR XR CHEST 2V PA LATERAL 11/17/2021 1:01 PM FINDINGS: Lungs: Questionable central ground-glass densities similar to prior exam. Pleural spaces: No pneumothorax. No pleural effusion. Heart/Mediastinum: The heart appears mildly enlarged for size. Bones/joints: Unremarkable. IMPRESSION: 1. Questionable mild pulmonary edema. 2. Mild enlargement of the cardiac silhouette. Dictated and Authenticated by: Naga Willoughby MD. Ordering:JUNO Angel MD
--- NOTE | 2021-12-28 06:48 | RESPIRATORY ---
Respiratory called to patient with acute respiratory distress. RT met this patient in emergency room with BiPAP already placed on patient with settings of 10/5 30%. Settings adjusted to 14/7 100%, but patient experienced no relief. Patient continued to desaturate and tachypnea increased. Patient was intubated with 7.5 ett 25 at the [facility] with settings VC/AC VT 440, RR 20, Peep 10, FiO2 100%. Patients SpO2 remained in High 70s and was relieved with duonebs, increasing to 100%. Patient was slowly decreased to settings of vt 440, rr 20, peep 5 and FiO2 40 with SpO2 of 96% and end tidal of 36.
[2021-12-28 06:49] LABS: Lactate 14.3 mmol/L (0.9-1.7)
[2021-12-28 07:04] LABS: Troponin I < 50 ng/L (<or=60)
[2021-12-28] MEDS: VANCOMYCIN 1,000 MG in Normal Saline 250 ML 166.6666 MG IVPB (07:26)
[2021-12-28 07:51] LABS: Bilirubin Small (Negative); Blood Large (Negative); Clarity Cloudy (Clear); Glucose Negative (Negative); Ketones Negative (Negative); Leukocyte Esterase Negative (Negative); Nitrite Negative (Negative); Specific Gravity >= 1.030 (1.005-1.025); pH 5.5 (5-8)
[2021-12-28 07:58] LABS: Bacteria Few HPF (Negative); Crystals Moderate Amorphous HPF (Negative); Epithelial Cells Many HPF (Negative); Mucus Moderate (Negative); RBC >50 HPF (0-2); WBC Negative HPF (0-5)
[2021-12-28 07:59] LABS: C & S Indicated? No/Sq. Contamination
--- NOTE | 2021-12-28 07:59 | NUR.NOTE ---
Pt hyperventilating upon arrival, MD order for BiPAP, pt did not tolerate well. MD order to intubate, verbal order for 20 etomidate and 100 urmila, administered, MD intubated pt at 0508 with RT in room, 7 1/2 fr. ET 25 at lip. Propofol gtt started per MD order see JUL. Pt sats >90% with mechanical ventilation. Report called to Nidia SCHMID, pt taken to ICU with RT on monitor with [facility].
[2021-12-28 08:07] LABS: Lab Add On Test DONE
[2021-12-28] MEDS: Furosemide 40 MG/4 ML VIAL IVP ×2 (08:32→16:41)
[2021-12-28] MEDS: Pantoprazole 40 MG VIAL IVP (08:33)
[2021-12-28] MEDS: Heparin 5,000 UNITS/ML VIAL 5000 UNITS SC ×3 (08:33→23:37)
[2021-12-28] MEDS: Normal Saline Flush 10 ML SYR IVP ×3 (08:33→16:41)
[2021-12-28] MEDS: fentaNYL 100 MCG/2 ML VIAL (09:20)
[2021-12-28 09:23] LABS: Procalcitonin 0.1 ng/mL
--- NOTE | 2021-12-28 09:27 | PDOC.CMIN ---
- If Service Date Differs Date of service: 12/28/21 Time of Service: 09:27
--- NOTE | 2021-12-28 09:30 | DI.RAD_ITS ---
Exam(s) XR PORTABLE CHEST AP EXAM: XR PORTABLE CHEST AP CLINICAL HISTORY: Central Line Placement TECHNIQUE: 2D digital imaging was performed. COMPARISON: CR,XR XR PORTABLE CHEST AP POST LINE from 12/28/2021 FINDINGS: The endotracheal tube is unchanged in position. A nasogastric tube has been inserted which projects in the region of the stomach. A left-sided central line has been inserted with the tip projecting in the lower SVC. There is no evidence of pneumothorax. There are persistent bilateral pulmonary opac ities. No effusion. No pneumothorax. IMPRESSION: Satisfactory placement of nasogastric tube and central venous catheter. DATA REPOSITORY: RADIATION DOSE DELIVERED:
--- NOTE | 2021-12-28 09:38 | INITIAL_ITS ---
- If Service Date Differs Date of service: 12/28/21 Time of Service: 09:38 Care Management Initial Assess REASON FOR HOSPITALIZATION:: Respiratory Failure PAST MEDICAL HISTORY/PAST SURGICAL HISTORY:: COPD (chronic obstructive pulmonary disease) (Chronic). Discharge planning issues (Acute). DVT prophylaxis (Acute). Acute on chronic systolic CHF (congestive heart failure) (Acute). Bilateral pleural effusion (Acute). Thoracic lymphadenopathy (Chronic). Scrotal pain (Acute). COPD suggested by initial evaluation (Acute). CHF (congestive heart failure) (Chronic). Scrotal pain (Acute). Acute epididymitis (Acute). Atypical chest pain (Acute). CAD (coronary artery disease), [place] coronary artery (Chronic). Anemia (Chronic). Status post lumbar laminectomy (Acute). DJD (degenerative joint disease), lumbar (Acute). Mediastinal adenopathy (Acute). Sarcoid (Chronic). Chronic GERD (Acute). Elevated brain natriuretic peptide (BNP) level (Acute). Enlarged heart (Acute). Pleural effusion, right (Acute) PREVIOUS FUNCTIONAL STATUS/SOCIAL/FAMILY SUPPORTS:: Presents from [facility]-no contacts listed. CURRENT FUNCTIONAL STATUS:: Chriss remains in the ICU, ventilated at this time. ADVANCE DIRECTIVES:: None on file. Has patient been provided with info about the portal/API?: No Did the patient sign up for the portal?: No CODE STATUS:: Full Code INSURANCE COVERAGE / FINANCIAL ISSUES:: [facility] CURRENT HOME/COMMUNITY SERVICES/EQUIPMENT:: [facility] PRIMARY CARE PHYSICIAN:: Jared Glez POTENTIAL DISCHARGE NEEDS:: Coordinated return to [facility]. PATIENT/FAMILY EDUCATION NEEDS:: Review discharge instructions, discuss [employer] Me [employer]. ANTICIPATED BARRIERS TO DISCHARGE:: None identified. TRANSPORTATION:: Via [facility] transport. PLAN:: Chriss continues to be closely monitored and treated, CM continues to follow.
[2021-12-28 09:50] LABS: BE (Venous) -18 mmol/L (-2-3); HCO3 (Venous) 12 mmol/L (23-28); O2 Sat (Venous) 85 %; TCO2 (Venous) 13 mmol/l (24-29); pCO2 (Venous) 37 mmHg (41-51); pO2 (Venous) 66 mmHg
[2021-12-28 09:53] LABS: pH (Venous) 7.11 (7.31-7.41)
[2021-12-28 09:54] LABS: Lactate 10.1 mmol/L (0.9-1.7)
[2021-12-28 10:08] LABS: TSH 3.96 uIU/mL (0.36-3.74)
--- NOTE | 2021-12-28 10:22 | PUCC_ITS ---
General Date of Service Date of service: 12/28/21 Time of Service: 09:00 Reason for Admission to ICU: Hypoxic respiratory failure Lactic acidosis Assessment and Plan Assessment and plan (1) Respiratory failure with hypoxia: Status: Acute (2) COPD (chronic obstructive pulmonary disease): Status: Chronic (3) Cardiogenic shock: Status: Acute (4) Lactic acidosis: Status: Acute (5) Pneumonia: Status: Acute (6) High anion gap metabolic acidosis: Status: Acute (7) Hyponatremia: Status: Acute (8) Acute liver failure: Status: Acute (9) Acute renal failure: Status: Acute Assessment and plan: This is a 56 yo man with COPD and CHF who present with hypoxic respiratory failure requiring intubation found to have severe lactic acidosis and multi organ failure most consistent with cardiogenic shock. Initially his lactate was 14 with a pH was 7 and with supportive care these improved to 10 and 7.11 respectfully. His picture this far is most conisistent with cardiogenic shock (dry and cold). I have started him on dobutamine to treat cardiogenic shock but I so also have concerns about the potential for toxic ingestion given the metabolic acidosis so have ordered for serum osmolalities an a u tox. He does not take metformin so metformin lactic acidosis is not a concern. His lactate and acidosis is improving, he does make some urine and his electrolytes are stable so there is no emergent indication for dialysis at this time. I will repeat labs at 2pm to keep a close eye on the progress of this critically ill patient. Recommendations Pulmonary: Hypoxic respiratory failure - Volume assist control ventilation - lung protective ventilation 6-8cc/kg IBW tidal volumes, PEEP 5 is ok, FiO2 titrate to sat 90-94% - VAP prevention bundle - daily sedation vacation - daily spontaneous breathing trials - Duonebs QID - recommend CT PE protocol despite renal function COPD - not in exacerbation - ok for QID nebs for now Cardiac: Cardiogenic Shock - recommend dobutamine trial - assess if MAP's can tolerate - if BP cannot tolerate next choice would be low dose epinephrine infusion (2-5 mcg) - recommend diuresis as able - 40mg bid and prn to aim for a negative fluid balance - central line placement this morning CHF - holding Entresto and metoprolol given hypotension - holding atorvastatin given liver failure for now Renal: Acute renal failure with oliguria - diuresis and heart failure treatment - renal friendly diet - continue to monitor labs Lactic acidosis - will repeat labs at 2pm - continued supportive care I&O: Intake & Output 12/25/21 12/26/21 12/27/21 12/28/21 23:59 23:59 23:59 23:59 Intake Total 1100 / 1100 Balance 1100 / 1100 Weight 81.7 kg Daily Fluid Goal:: goal for negative balance - but realistically as close to even as possible GI Nutrition: Nutrition - recommend nutrition consult to start renal friendly tube feeds Acute liver failure - suspect congestive hepatopathy - with improved perfusion and diuresis I suspect this will improve - continue to trend LFT's daily Infectious Disease: Pneumonia - continue Zosyn - agree with stopping vanc - procalcitonin negative Hematologic: No acute concerns Neurologic: Sedated - on propofol - added prn fentanyl for pain - on prn Tylenol - do not exceed 2g in 24 hours given liver failure - daily awakening trial Endocrine: no acute concerns Lines: PIV Atkins Left IJ CVC placed today Prophylaxis: heparin subq Protonix Code Status: Resuscitation Status Full Code Subjective Critical and life-threatening events over the past 24 hours: This is a 56 yo man is resides currently at a correctional facility who presented with chest pains and dyspnea who had initially complained of 1 day of worsening symptoms. He denied fever or cough. He was thought to have COPD and was placed on BiPAP but he did not tolerate this became more somnolent to the point of not protecting his airways and so was intubated. He was just an inpatient in October for heart failure. He was found to have an elevated white count with a negative procalcitonin. He has a very elevated bnp. He has multiorgan failure with borderline hypotension and unimpressive urine output. Exam Narrative Exam Narrative: POCUS 12/28/21: All cardiac views were well visualized. EF significantly reduced: EF 20% approximately. IVC is large with no respiratory variation. There is scant ascites around the liver. No other free fluid. No pleural effusions. No significant B-lines anteriorly. Large IJ on left. Gen: NAD, intubated and sedated HENT: PERRL, + JVD Chest: No respiratory distress, normal appearance of chest, no crackles or wheezing appreciated Heart: regular rate and rhythym, no murmurs, rubs or gallops Abdomen: Non-distended, soft, non tender Extremities: No clubbing, edema, mild pedal cyanosis and coolness Neuro: intubated and sedated Psych: intubated and sedated Most Recent VS/Results Last Vital Signs Temp 36.9 C 12/28/21 08:18 Pulse 100 H 12/28/21 10:16 Resp 20 12/28/21 10:16 BP 86/55 L 12/28/21 10:16 Pulse Ox 96 12/28/21 10:16 Laboratory Results - last 24 hr 12/28/21 12/28/21 12/28/21 04:30 04:30 04:30 WBC 15.86 H RBC 5.02 Hgb 14.4 Hct 47.0 MCV 94 MCH 28.7 MCHC 30.6 L RDW 14.7 H Plt Count 330 MPV 11.5 H Immature Gran % 0.0 Neutrophils % 67.0 Band Neutrophils % 2 Lymphocytes % 20.0 Atypical Lymphs % 0 Monocytes % 8.0 Eosinophils % 1.0 Basophils % 0.0 Myelocytes % 2 Nucleated RBC % 0.2 Absolute Neutrophils 10.94 H Absolute Lymphocytes 3.17 Absolute Monocytes 1.27 H Absolute Eosinophils 0.16 Absolute Basophils 0.00 RBC Morphology Normal Sample Site ABG Sample Site ABG pH ABG pCO2 ABG pO2 ABG HCO3 ABG Total CO2 ABG O2 Saturation ABG Base Excess VBG pH VBG pCO2 VBG pO2 VBG HCO3 VBG Total CO2 VBG O2 Saturation VBG Base Excess VBG Lactate Oxygen Liter Flow FiO2 Sodium Cancelled Potassium Cancelled Chloride Cancelled Carbon Dioxide Cancelled Anion Gap Cancelled BUN Cancelled Creatinine Cancelled Estimated GFR/1.73 m2 Cancelled Glucose Cancelled Calcium Cancelled Magnesium Cancelled Total Bilirubin Cancelled Conjugated Bilirubin Cancelled AST Cancelled ALT Cancelled Alkaline Phosphatase Cancelled Troponin I Cancelled NT-Pro-B Natriuret Pep Cancelled Total Protein Cancelled Albumin Cancelled Lipase Cancelled Procalcitonin TSH Urine Color Urine Clarity Urine pH Ur Specific [place] Urine Protein Urine Ketones Urine Blood Urine Nitrite Urine Bilirubin Urine Urobilinogen Ur Leukocyte Esterase Urine RBC Urine WBC Ur Epithelial Cells Urine Crystals Urine Bacteria Urine Casts Urine Mucus Ur Culture Indicated? Urine Glucose COVID-19 Source Nasal/Nares SARS-CoV-2 (PCR) Negative Add-On Test Request 12/28/21 12/28/21 12/28/21 05:03 05:03 05:11 WBC RBC Hgb Hct MCV MCH MCHC RDW Plt Count MPV Immature Gran % Neutrophils % Band Neutrophils % Lymphocytes % Atypical Lymphs % Monocytes % Eosinophils % Basophils % Myelocytes % Nucleated RBC % Absolute Neutrophils Absolute Lymphocytes Absolute Monocytes Absolute Eosinophils Absolute Basophils RBC Morphology Sample Site ABG Sample Site Cancelled ABG pH ABG pCO2 ABG pO2 ABG HCO3 ABG Total CO2 ABG O2 Saturation ABG Base Excess VBG pH 7.02 L* VBG pCO2 42 VBG pO2 33 L* VBG HCO3 11 L VBG Total CO2 12 L VBG O2 Saturation 39 VBG Base Excess -20 L VBG Lactate Oxygen Liter Flow Cancelled FiO2 Sodium 132 L Potassium 4.4 Chloride 93 L Carbon Dioxide 12.4 L Anion Gap 26.6 H BUN 18 Creatinine 2.2 H Estimated GFR/1.73 m2 30.90 Glucose 73 L Calcium 8.8 Magnesium 2.3 Total Bilirubin 2.7 H Conjugated Bilirubin 0.9 H AST 398 H ALT 327 H Alkaline Phosphatase 192 H Troponin I < 50 NT-Pro-B Natriuret Pep > 87325 H Total Protein 7.3 Albumin 3.1 L Lipase 53 Procalcitonin TSH Urine Color Urine Clarity Urine pH Ur Specific [place] Urine Protein Urine Ketones Urine Blood Urine Nitrite Urine Bilirubin Urine Urobilinogen Ur Leukocyte Esterase Urine RBC Urine WBC Ur Epithelial Cells Urine Crystals Urine Bacteria Urine Casts Urine Mucus Ur Culture Indicated? Urine Glucose COVID-19 Source SARS-CoV-2 (PCR) Add-On Test Request 12/28/21 12/28/21 12/28/21 06:08 06:08 06:37 WBC RBC Hgb Hct MCV MCH MCHC RDW Plt Count MPV Immature Gran % Neutrophils % Band Neutrophils % Lymphocytes % Atypical Lymphs % Monocytes % Eosinophils % Basophils % Myelocytes % Nucleated RBC % Absolute Neutrophils Absolute Lymphocytes Absolute Monocytes Absolute Eosinophils Absolute Basophils RBC Morphology Sample Site Right Radial ABG Sample Site ABG pH 7.00 L* ABG pCO2 40 ABG pO2 172 H ABG HCO3 Not Applicable ABG Total CO2 Not Applicable ABG O2 Saturation Not Applicable ABG Base Excess Not Applicable VBG pH VBG pCO2 VBG pO2 VBG HCO3 VBG Total CO2 VBG O2 Saturation VBG Base Excess VBG Lactate Cancelled Oxygen Liter Flow FiO2 60 Sodium Potassium Chloride Carbon Dioxide Anion Gap BUN Creatinine Estimated GFR/1.73 m2 Glucose Calcium Magnesium Total Bilirubin Conjugated Bilirubin AST ALT Alkaline Phosphatase Troponin I < 50 NT-Pro-B Natriuret Pep Total Protein Albumin Lipase Procalcitonin TSH Urine Color Urine Clarity Urine pH Ur Specific [place] Urine Protein Urine Ketones Urine Blood Urine Nitrite Urine Bilirubin Urine Urobilinogen Ur Leukocyte Esterase Urine RBC Urine WBC Ur Epithelial Cells Urine Crystals Urine Bacteria Urine Casts Urine Mucus Ur Culture Indicated? Urine Glucose COVID-19 Source SARS-CoV-2 (PCR) Add-On Test Request 12/28/21 12/28/21 12/28/21 06:37 06:37 06:37 WBC RBC Hgb Hct MCV MCH MCHC RDW Plt Count MPV Immature Gran % Neutrophils % Band Neutrophils % Lymphocytes % Atypical Lymphs % Monocytes % Eosinophils % Basophils % Myelocytes % Nucleated RBC % Absolute Neutrophils Absolute Lymphocytes Absolute Monocytes Absolute Eosinophils Absolute Basophils RBC Morphology Sample Site ABG Sample Site ABG pH ABG pCO2 ABG pO2 ABG HCO3 ABG Total CO2 ABG O2 Saturation ABG Base Excess VBG pH VBG pCO2 VBG pO2 VBG HCO3 VBG Total CO2 VBG O2 Saturation VBG Base Excess VBG Lactate 14.3 H* Oxygen Liter Flow FiO2 Sodium Potassium Chloride Carbon Dioxide Anion Gap BUN Creatinine Estimated GFR/1.73 m2 Glucose Calcium Magnesium Total Bilirubin Conjugated Bilirubin AST ALT Alkaline Phosphatase Troponin I NT-Pro-B Natriuret Pep Total Protein Albumin Lipase Procalcitonin 0.1 TSH Urine Color Urine Clarity Urine pH Ur Specific [place] Urine Protein Urine Ketones Urine Blood Urine Nitrite Urine Bilirubin Urine Urobilinogen Ur Leukocyte Esterase Urine RBC Urine WBC Ur Epithelial Cells Urine Crystals Urine Bacteria Urine Casts Urine Mucus Ur Culture Indicated? Urine Glucose COVID-19 Source SARS-CoV-2 (PCR) Add-On Test Request DONE 12/28/21 12/28/21 12/28/21 07:32 09:32 09:32 WBC RBC Hgb Hct MCV MCH MCHC RDW Plt Count MPV Immature Gran % Neutrophils % Band Neutrophils % Lymphocytes % Atypical Lymphs % Monocytes % Eosinophils % Basophils % Myelocytes % Nucleated RBC % Absolute Neutrophils Absolute Lymphocytes Absolute Monocytes Absolute Eosinophils Absolute Basophils RBC Morphology Sample Site ABG Sample Site ABG pH ABG pCO2 ABG pO2 ABG HCO3 ABG Total CO2 ABG O2 Saturation ABG Base Excess VBG pH Cancelled VBG pCO2 Cancelled VBG pO2 Cancelled VBG HCO3 Cancelled VBG Total CO2 Cancelled VBG O2 Saturation Cancelled VBG Base Excess Cancelled VBG Lactate Cancelled Oxygen Liter Flow FiO2 Sodium Potassium Chloride Carbon Dioxide Anion Gap BUN Creatinine Estimated GFR/1.73 m2 Glucose Calcium Magnesium Total Bilirubin Conjugated Bilirubin AST ALT Alkaline Phosphatase Troponin I NT-Pro-B Natriuret Pep Total Protein Albumin Lipase Procalcitonin TSH Urine Color Dark Yellow Urine Clarity Cloudy Urine pH 5.5 Ur Specific [place] >= 1.030 H Urine Protein >=300 H Urine Ketones Negative Urine Blood Large H Urine Nitrite Negative Urine Bilirubin Small H Urine Urobilinogen 2.0 H Ur Leukocyte Esterase Negative Urine RBC >50 H Urine WBC Negative Ur Epithelial Cells Many Urine Crystals Moderate Amorphous Urine Bacteria Few Urine Casts 20-30 RBC Urine Mucus Moderate Ur Culture Indicated? No/Sq. Contamination Urine Glucose Negative COVID-19 Source SARS-CoV-2 (PCR) Add-On Test Request 12/28/21 12/28/21 12/28/21 09:32 09:32 09:32 WBC RBC Hgb Hct MCV MCH MCHC RDW Plt Count MPV Immature Gran % Neutrophils % Band Neutrophils % Lymphocytes % Atypical Lymphs % Monocytes % Eosinophils % Basophils % Myelocytes % Nucleated RBC % Absolute Neutrophils Absolute Lymphocytes Absolute Monocytes Absolute Eosinophils Absolute Basophils RBC Morphology Sample Site ABG Sample Site ABG pH ABG pCO2 ABG pO2 ABG HCO3 ABG Total CO2 ABG O2 Saturation ABG Base Excess VBG pH 7.11 L* VBG pCO2 37 L VBG pO2 66 VBG HCO3 12 L VBG Total CO2 13 L VBG O2 Saturation 85 VBG Base Excess -18 L VBG Lactate 10.1 H* Oxygen Liter Flow FiO2 Sodium Potassium Chloride Carbon Dioxide Anion Gap BUN Creatinine Estimated GFR/1.73 m2 Glucose Calcium Magnesium Total Bilirubin Conjugated Bilirubin AST ALT Alkaline Phosphatase Troponin I NT-Pro-B Natriuret Pep Total Protein Albumin Lipase Procalcitonin TSH 3.96 H Urine Color Urine Clarity Urine pH Ur Specific [place] Urine Protein Urine Ketones Urine Blood Urine Nitrite Urine Bilirubin Urine Urobilinogen Ur Leukocyte Esterase Urine RBC Urine WBC Ur Epithelial Cells Urine Crystals Urine Bacteria Urine Casts Urine Mucus Ur Culture Indicated? Urine Glucose COVID-19 Source SARS-CoV-2 (PCR) Add-On Test Request 12/28/21 Unknown WBC RBC Hgb Hct MCV MCH MCHC RDW Plt Count MPV Immature Gran % Neutrophils % Band Neutrophils % Lymphocytes % Atypical Lymphs % Monocytes % Eosinophils % Basophils % Myelocytes % Nucleated RBC % Absolute Neutrophils Absolute Lymphocytes Absolute Monocytes Absolute Eosinophils Absolute Basophils RBC Morphology Sample Site ABG Sample Site Cancelled ABG pH Cancelled ABG pCO2 Cancelled ABG pO2 Cancelled ABG HCO3 Cancelled ABG Total CO2 Cancelled ABG O2 Saturation Cancelled ABG Base Excess Cancelled VBG pH VBG pCO2 VBG pO2 VBG HCO3 VBG Total CO2 VBG O2 Saturation VBG Base Excess VBG Lactate Oxygen Liter Flow Cancelled FiO2 Cancelled Sodium Potassium Chloride Carbon Dioxide Anion Gap BUN Creatinine Estimated GFR/1.73 m2 Glucose Calcium Magnesium Total Bilirubin Conjugated Bilirubin AST ALT Alkaline Phosphatase Troponin I NT-Pro-B Natriuret Pep Total Protein Albumin Lipase Procalcitonin TSH Urine Color Urine Clarity Urine pH Ur Specific [place] Urine Protein Urine Ketones Urine Blood Urine Nitrite Urine Bilirubin Urine Urobilinogen Ur Leukocyte Esterase Urine RBC Urine WBC Ur Epithelial Cells Urine Crystals Urine Bacteria Urine Casts Urine Mucus Ur Culture Indicated? Urine Glucose COVID-19 Source SARS-CoV-2 (PCR) Add-On Test Request Review of Systems Unobtainable due to endotracheal tube Time spent with patient Time spent in Critical Care: 120 Time spent in Critical care included: Coordination of care, Chart review, Documenting critically ill care, Time at immediate bedside and Discussing critically ill care with other medical staff Multi-Disciplinary Checklist Lines/Tubes CENTRAL LINE: yes, Central Line Day#: 0 ARTERIAL LINE: no ATKINS: yes, Atkins Day#: 0 ENDOTRACHEAL TUBE: yes, Endotracheal Tube Day#: 0 Sedation: yes, Sedation Vacation: no, Reason/Intervention: intubated today Head of Bed@30 degrees: yes Spontaneous Breathing Trial: no, Reason/Intervention: intubated today ICU Maintenance PRESSURE ULCER: no RESTRAINTS: yes, Reviewed Necessity: Yes ANTIBIOTICS(if yes, consider Stewardship): Yes Social Issues FAMILY UPDATED: no, Reason/Intervention: patient incarcerated PT/OT: no, Reason/Intervention: not appropriate at this time GOALS/DISPOSITION/DECK HAND: yes CODE STATUS: Full Prophylaxis DVT PROPHYLAXIS: yes GI PROPHYLAXIS: yes, Indication: intubated
--- NOTE | 2021-12-28 10:24 | W.PM.OP ---
Date of service: 12/28/21 Time of Service: 09:25 Operative Note Operative Note PRE-OP DIAGNOSIS: Cardiogenic Shock PROCEDURE: Left IJ CVC Procedure Description: Central Line Placement Indication: Cardiogenic shock Line Priority: Emergent Tip Confirmation: Chest X-ray Consent Obtained: No - patient intubated - emergent Central Catheter Type: Non-Tunneled Non-Tunneled Catheter: Standard Line Location: Left Internal Jugular Final tip location satisfactory? Yes Line Lumens (#): 3 Line External Length:0cm Line Securement Device: Sutured Catheter Secured At: 20cm Central Line Methods: Using standard sterile technique the patient site was cleaned and the patient was draped. Using the Seldinger technique the wire was placed (confirmed with ultrasound) and the catheter was placed with ease. All lumens draw blood and flush easily. Post CXR finds no PNX and final tip of the line is in adequate position. Number of Attempts: 1 Number of Sites Attempted: 1 Number of Kits Used: 1 Central Line Operators: 1 Number Of Operators: 1 [employer]under Operator's Name: Stephenie Soto MD Unless otherwise noted, there were no complications, no blood loss and no cultures obtained.
[2021-12-28] MEDS: DOBUTamine 500 MG/250 ML BAG 12.255 MG IV (10:45)
--- NOTE | 2021-12-28 11:34 | DI.US_ITS ---
Exam(s) US ABDOMEN EXAM: US ABDOMEN CLINICAL HISTORY: transaminitis TECHNIQUE: Ultrasound abdomen performed using standard protocol. COMPARISON: CT CT THORAX ABD/PEL CTA from 11/11/2021 US US ABDOMEN from 11/12/2021 FINDINGS: LIVER: Mildly enlarged. Question of nodular surface. Normal echogenicity.. No focal liver lesions are seen.. GALLBLADDER: Not well seen due to adjacent bowel. Somewhat contracted. Probable sludge. No pericho lecystic fluid identified. GERARD'S SIGN: Negative. BILIARY SYSTEM: No intrahepatic or extrahepatic biliary ductal dilation. KIDNEYS: Kidneys are symmetric in size. No evidence of renal calculi. No evidence of hydronephrosis. No renal mass or cyst identified. PANCREAS: Normal where visualized. SPLEEN: Not enlarged. ABDOMINAL AORTA AND IVC: Visualized portions normal caliber. ASCITES: None seen. IMPRESSION: Mildly large enlarged liver. Gallbladder sludge. Biliary dilatation. DATA REPOSITORY:
--- NOTE | 2021-12-28 11:44 | W.NUTCONSULT ---
Date of service: 12/28/21 Time of Service: 11:44 Nutritional Consult ASSESSMENT: Chriss was intubated today secondary to acute respiratory failure. PMH: COPD, CHF, CAD. Some edema noted. At risk for fluid overload. Propofol providing 100 kcal/per 24 hours. Estimated Needs: 7227-2769 kcal , 80-90 g protein, 9812-5877 kcal (Adjusted body weight used in factoring caloric and protein needs) NUTRITIONAL DIAGNOSIS: Intubated and needs enteral feeding to provide 100% of macronutrient and fluid needs INTERVENTION: Recommend Jevity 1.2 63 cc/hour with 200 ml flushes q 6 hours providing a total of 1814 kcal, 78 g protein,1940 ml fluid MONITORING AND EVALUATION: check residual q 6 hours, hold 4 hours if > 100 ml labs weight Time Spent in Nutritional Counseling and Treatment: 30
--- NOTE | 2021-12-28 13:43 | W.PM.HP.N ---
Date of service: 12/28/21 Time of Service: 08:15 Assessment and Plan Assessment and plan (1) Pneumonia: Status: Acute Assessment and plan: Questionable dx. Small infiltrate possibly seen on CXR. Procal 0.1 Will cont Zosyn initiated in the ED. Stop Vancomycin. Monitor CBC, Temp. (2) Acute renal failure: Status: Acute Assessment and plan: Secondary to cardiogenic shock. Creatinine at baseline is 1.1. Now 2.2. Diuresing. Received 2L NS bolus. Now on dobutamine and urine output improving. (3) Lactic acidosis: Status: Acute Assessment and plan: Treating PNA and cardiogenic shock. Lactate is improving. Monitoring. (4) Cardiogenic shock: Status: Acute Assessment and plan: Know CAD and global hypokinesis; Echocardiogram and NM perfusion scanning at recent admission. Dobutamine and diureses. (5) Respiratory failure with hypoxia: Status: Acute Assessment and plan: Pulmonary edema and COPD (not in exacerbation). Volume assist control ventilation. Packager Head following. Humza, CTA to r/o pulmonary embolism ordered/pending. (6) Discharge planning issues: Status: Acute Assessment and plan: Pt is a full code. Incarcerated. (7) CHF (congestive heart failure): Status: Chronic Assessment and plan: Est EF of 20-25%. Currently on dobutamine. Lasix 40mg IV BID. Routinely is on Entresto and metoprolol. Hold d/t hypotension. (8) Acute liver disease: Status: Acute Assessment and plan: D/T cardiogenic shock and likely hepatic congestion. Avoid hepatotoxins. Monitor. History of Present Illness History of Present Illness Chief Complaint: Dyspnea and Chest pain. Narrative: This is a 56 yo male with a PMH of CAD, CHF, COPD, Anemia, DJD, Sarcoid, GERD. He is currently incarcerated. He presented to the ED d/t 1 day of worsening dyspnea and CP. The chest pain is described as tightness. No reported fever/chills/cough. No palpitations, N/V/abd pain/diarrhea. He presented with significant tachypnea. RA O2 saturation was 94%. No peripheral edema noted. Beside Us showed a diminished EF estimated to be 20-30%; similar to formal echocardiogram on 11/15/21. Myocardial perfusion scan on 12/14/21 Within the limits of the study myocardial perfusion appears grossly normal without evidence of ischemia or prior infarction The LV is dilated, EF is 15%, severe global hypokinesis. He was initially placed on BiPAP but this was not tolerated well. He was intubated to protect his airway. Lab showed a WBC count of 15.86. Hgb 14.4. Lactate 14.3. Na 132. K 4.4. Creatinine 2.2. Glucose 73. Bili 2.7. AST 398 ALT 327 NTProBNP > 07634 Procal 0.1. TSH 3.96. No UDS or UA in the ED d/t lack of urine output. Admitted to the ICU. Review of Systems Unobtainable due to endotracheal tube PFSH All Active Problems (Updated 12/28/21 @ 14:37 by Gamaliel Serrato MD) Acute liver disease (Acute) Pneumonia (Acute) Acute renal failure (Acute) Acute liver failure (Acute) Hyponatremia (Acute) High anion gap metabolic acidosis (Acute) Lactic acidosis (Acute) Cardiogenic shock (Acute) Respiratory failure with hypoxia (Acute) COPD (chronic obstructive pulmonary disease) (Chronic) Discharge planning issues (Acute) DVT prophylaxis (Acute) Thoracic lymphadenopathy (Chronic) Scrotal pain (Acute) CHF (congestive heart failure) (Chronic) CAD (coronary artery disease), [place] coronary artery (Chronic) Anemia (Chronic) Status post lumbar laminectomy (Acute) DJD (degenerative joint disease), lumbar (Acute) Mediastinal adenopathy (Acute) Sarcoid (Chronic) Chronic GERD (Acute) Elevated brain natriuretic peptide (BNP) level (Acute) Enlarged heart (Acute) Medical History Acute epididymitis Acute on chronic systolic CHF (congestive heart failure) Acute respiratory failure Atypical chest pain Bilateral pleural effusion COPD suggested by initial evaluation Pleural effusion, right Scrotal pain Shortness of breath Social History Smoking/Tobacco Use Status: Former Tobacco Use Smoking risk assessment performed?: Yes Alcohol Intake: former Substance use type: does not use Do you feel safe at home: Yes Do you feel safe in your relationship?: Yes Meds Allergies and Home Medications Allergies Allergy/AdvReac Type Severity Reaction Status Date / Time streptomycin Allergy Severe Swelling/Ed Unverified 12/28/21 07:49 [place] pregabalin [From Lyrica] Allergy Unverified 12/28/21 07:49 Home Medications Medication Instructions Recorded Confirmed Type atorvastatin 80 mg tablet 80 mg PO DAILY 11/11/21 12/28/21 History fluoxetine 60 mg tablet 60 mg PO DAILY 11/11/21 12/28/21 History meloxicam 7.5 mg tablet 7.5 mg PO DAILY 11/11/21 12/28/21 History omeprazole 20 mg capsule,delayed 20 mg PO BID 11/11/21 12/28/21 History release metoprolol succinate 25 mg 25 mg PO DAILY #30 tabs 11/18/21 12/28/21 Rx tablet,extended release 24 hr (Toprol XL) calcium carbonate 400 mg calcium 1,000 mg PO 3XD PRN Acid Reflux 12/28/21 12/28/21 History (1,000 mg) chewable tablet (Calcium Antacid) diphenhydramine HCl 25 mg capsule 25 mg PO 1XD 12/28/21 12/28/21 History fluticasone 100 mcg-salmeterol 50 2 inh inhalation 2XD PRN Dyspnea 12/28/21 12/28/21 History mcg/dose blistr powdr for inhalation (Advair Diskus) levofloxacin 500 mg tablet 500 mg PO 1XD 12/28/21 12/28/21 History melatonin 3 mg capsule 3 mg PO 1XD 12/28/21 12/28/21 History sacubitril 24 mg-valsartan 26 mg 1 tab PO 2XD 12/28/21 12/28/21 History tablet (Entresto) Exam Narrative Exam Narrative: Sedated and intubated. Const Nutritional Appearance: overweight Orientation: other Eyes General: appearance normal, both eyes and all related structures Sclera: sclerae normal Neck Neck: JVD Resp Effort & Inspection: normal respiratory effort Auscultation: clear to auscultation bilaterally Cardio Rate: regular rate Rhythm: regular rhythm Heart Sounds: no murmurs GI Inspection: non-distended Palpation: soft Neuro General: other (sedated and intubated) Extrem General: no pedal edema Right upper extremity: normal to inspection Left upper extremity: normal to inspection Results Labs Result diagrams: 12/28/21 04:30 12/28/21 05:03 Labs: Laboratory Results - last 24 hr 12/28/21 12/28/21 12/28/21 04:30 04:30 04:30 WBC 15.86 H RBC 5.02 Hgb 14.4 Hct 47.0 MCV 94 MCH 28.7 MCHC 30.6 L RDW 14.7 H Plt Count 330 MPV 11.5 H Immature Gran % 0.0 Neutrophils % 67.0 Band Neutrophils % 2 Lymphocytes % 20.0 Atypical Lymphs % 0 Monocytes % 8.0 Eosinophils % 1.0 Basophils % 0.0 Myelocytes % 2 Nucleated RBC % 0.2 Absolute Neutrophils 10.94 H Absolute Lymphocytes 3.17 Absolute Monocytes 1.27 H Absolute Eosinophils 0.16 Absolute Basophils 0.00 RBC Morphology Normal Sample Site ABG Sample Site ABG pH ABG pCO2 ABG pO2 ABG HCO3 ABG Total CO2 ABG O2 Saturation ABG Base Excess VBG pH VBG pCO2 VBG pO2 VBG HCO3 VBG Total CO2 VBG O2 Saturation VBG Base Excess VBG Lactate Oxygen Liter Flow FiO2 Sodium Cancelled Potassium Cancelled Chloride Cancelled Carbon Dioxide Cancelled Anion Gap Cancelled BUN Cancelled Creatinine Cancelled Estimated GFR/1.73 m2 Cancelled Glucose Cancelled Calcium Cancelled Magnesium Cancelled Total Bilirubin Cancelled Conjugated Bilirubin Cancelled AST Cancelled ALT Cancelled Alkaline Phosphatase Cancelled Troponin I Cancelled NT-Pro-B Natriuret Pep Cancelled Total Protein Cancelled Albumin Cancelled Lipase Cancelled Procalcitonin TSH Urine Color Urine Clarity Urine pH Ur Specific [place] Urine Protein Urine Ketones Urine Blood Urine Nitrite Urine Bilirubin Urine Urobilinogen Ur Leukocyte Esterase Urine RBC Urine WBC Ur Epithelial Cells Urine Crystals Urine Bacteria Urine Casts Urine Mucus Ur Culture Indicated? Urine Glucose COVID-19 Source Nasal/Nares SARS-CoV-2 (PCR) Negative Add-On Test Request 12/28/21 12/28/21 12/28/21 05:03 05:03 05:11 WBC RBC Hgb Hct MCV MCH MCHC RDW Plt Count MPV Immature Gran % Neutrophils % Band Neutrophils % Lymphocytes % Atypical Lymphs % Monocytes % Eosinophils % Basophils % Myelocytes % Nucleated RBC % Absolute Neutrophils Absolute Lymphocytes Absolute Monocytes Absolute Eosinophils Absolute Basophils RBC Morphology Sample Site ABG Sample Site Cancelled ABG pH ABG pCO2 ABG pO2 ABG HCO3 ABG Total CO2 ABG O2 Saturation ABG Base Excess VBG pH 7.02 L* VBG pCO2 42 VBG pO2 33 L* VBG HCO3 11 L VBG Total CO2 12 L VBG O2 Saturation 39 VBG Base Excess -20 L VBG Lactate Oxygen Liter Flow Cancelled FiO2 Sodium 132 L Potassium 4.4 Chloride 93 L Carbon Dioxide 12.4 L Anion Gap 26.6 H BUN 18 Creatinine 2.2 H Estimated GFR/1.73 m2 30.90 Glucose 73 L Calcium 8.8 Magnesium 2.3 Total Bilirubin 2.7 H Conjugated Bilirubin 0.9 H AST 398 H ALT 327 H Alkaline Phosphatase 192 H Troponin I < 50 NT-Pro-B Natriuret Pep > 21807 H Total Protein 7.3 Albumin 3.1 L Lipase 53 Procalcitonin TSH Urine Color Urine Clarity Urine pH Ur Specific [place] Urine Protein Urine Ketones Urine Blood Urine Nitrite Urine Bilirubin Urine Urobilinogen Ur Leukocyte Esterase Urine RBC Urine WBC Ur Epithelial Cells Urine Crystals Urine Bacteria Urine Casts Urine Mucus Ur Culture Indicated? Urine Glucose COVID-19 Source SARS-CoV-2 (PCR) Add-On Test Request 12/28/21 12/28/21 12/28/21 06:08 06:08 06:37 WBC RBC Hgb Hct MCV MCH MCHC RDW Plt Count MPV Immature Gran % Neutrophils % Band Neutrophils % Lymphocytes % Atypical Lymphs % Monocytes % Eosinophils % Basophils % Myelocytes % Nucleated RBC % Absolute Neutrophils Absolute Lymphocytes Absolute Monocytes Absolute Eosinophils Absolute Basophils RBC Morphology Sample Site Right Radial ABG Sample Site ABG pH 7.00 L* ABG pCO2 40 ABG pO2 172 H ABG HCO3 Not Applicable ABG Total CO2 Not Applicable ABG O2 Saturation Not Applicable ABG Base Excess Not Applicable VBG pH VBG pCO2 VBG pO2 VBG HCO3 VBG Total CO2 VBG O2 Saturation VBG Base Excess VBG Lactate Cancelled Oxygen Liter Flow FiO2 60 Sodium Potassium Chloride Carbon Dioxide Anion Gap BUN Creatinine Estimated GFR/1.73 m2 Glucose Calcium Magnesium Total Bilirubin Conjugated Bilirubin AST ALT Alkaline Phosphatase Troponin I < 50 NT-Pro-B Natriuret Pep Total Protein Albumin Lipase Procalcitonin TSH Urine Color Urine Clarity Urine pH Ur Specific [place] Urine Protein Urine Ketones Urine Blood Urine Nitrite Urine Bilirubin Urine Urobilinogen Ur Leukocyte Esterase Urine RBC Urine WBC Ur Epithelial Cells Urine Crystals Urine Bacteria Urine Casts Urine Mucus Ur Culture Indicated? Urine Glucose COVID-19 Source SARS-CoV-2 (PCR) Add-On Test Request 12/28/21 12/28/21 12/28/21 06:37 06:37 06:37 WBC RBC Hgb Hct MCV MCH MCHC RDW Plt Count MPV Immature Gran % Neutrophils % Band Neutrophils % Lymphocytes % Atypical Lymphs % Monocytes % Eosinophils % Basophils % Myelocytes % Nucleated RBC % Absolute Neutrophils Absolute Lymphocytes Absolute Monocytes Absolute Eosinophils Absolute Basophils RBC Morphology Sample Site ABG Sample Site ABG pH ABG pCO2 ABG pO2 ABG HCO3 ABG Total CO2 ABG O2 Saturation ABG Base Excess VBG pH VBG pCO2 VBG pO2 VBG HCO3 VBG Total CO2 VBG O2 Saturation VBG Base Excess VBG Lactate 14.3 H* Oxygen Liter Flow FiO2 Sodium Potassium Chloride Carbon Dioxide Anion Gap BUN Creatinine Estimated GFR/1.73 m2 Glucose Calcium Magnesium Total Bilirubin Conjugated Bilirubin AST ALT Alkaline Phosphatase Troponin I NT-Pro-B Natriuret Pep Total Protein Albumin Lipase Procalcitonin 0.1 TSH Urine Color Urine Clarity Urine pH Ur Specific [place] Urine Protein Urine Ketones Urine Blood Urine Nitrite Urine Bilirubin Urine Urobilinogen Ur Leukocyte Esterase Urine RBC Urine WBC Ur Epithelial Cells Urine Crystals Urine Bacteria Urine Casts Urine Mucus Ur Culture Indicated? Urine Glucose COVID-19 Source SARS-CoV-2 (PCR) Add-On Test Request DONE 12/28/21 12/28/21 12/28/21 07:32 09:32 09:32 WBC RBC Hgb Hct MCV MCH MCHC RDW Plt Count MPV Immature Gran % Neutrophils % Band Neutrophils % Lymphocytes % Atypical Lymphs % Monocytes % Eosinophils % Basophils % Myelocytes % Nucleated RBC % Absolute Neutrophils Absolute Lymphocytes Absolute Monocytes Absolute Eosinophils Absolute Basophils RBC Morphology Sample Site ABG Sample Site ABG pH ABG pCO2 ABG pO2 ABG HCO3 ABG Total CO2 ABG O2 Saturation ABG Base Excess VBG pH Cancelled VBG pCO2 Cancelled VBG pO2 Cancelled VBG HCO3 Cancelled VBG Total CO2 Cancelled VBG O2 Saturation Cancelled VBG Base Excess Cancelled VBG Lactate Cancelled Oxygen Liter Flow FiO2 Sodium Potassium Chloride Carbon Dioxide Anion Gap BUN Creatinine Estimated GFR/1.73 m2 Glucose Calcium Magnesium Total Bilirubin Conjugated Bilirubin AST ALT Alkaline Phosphatase Troponin I NT-Pro-B Natriuret Pep Total Protein Albumin Lipase Procalcitonin TSH Urine Color Dark Yellow Urine Clarity Cloudy Urine pH 5.5 Ur Specific [place] >= 1.030 H Urine Protein >=300 H Urine Ketones Negative Urine Blood Large H Urine Nitrite Negative Urine Bilirubin Small H Urine Urobilinogen 2.0 H Ur Leukocyte Esterase Negative Urine RBC >50 H Urine WBC Negative Ur Epithelial Cells Many Urine Crystals Moderate Amorphous Urine Bacteria Few Urine Casts 20-30 RBC Urine Mucus Moderate Ur Culture Indicated? No/Sq. Contamination Urine Glucose Negative COVID-19 Source SARS-CoV-2 (PCR) Add-On Test Request 12/28/21 12/28/21 12/28/21 09:32 09:32 09:32 WBC RBC Hgb Hct MCV MCH MCHC RDW Plt Count MPV Immature Gran % Neutrophils % Band Neutrophils % Lymphocytes % Atypical Lymphs % Monocytes % Eosinophils % Basophils % Myelocytes % Nucleated RBC % Absolute Neutrophils Absolute Lymphocytes Absolute Monocytes Absolute Eosinophils Absolute Basophils RBC Morphology Sample Site ABG Sample Site ABG pH ABG pCO2 ABG pO2 ABG HCO3 ABG Total CO2 ABG O2 Saturation ABG Base Excess VBG pH 7.11 L* VBG pCO2 37 L VBG pO2 66 VBG HCO3 12 L VBG Total CO2 13 L VBG O2 Saturation 85 VBG Base Excess -18 L VBG Lactate 10.1 H* Oxygen Liter Flow FiO2 Sodium Potassium Chloride Carbon Dioxide Anion Gap BUN Creatinine Estimated GFR/1.73 m2 Glucose Calcium Magnesium Total Bilirubin Conjugated Bilirubin AST ALT Alkaline Phosphatase Troponin I NT-Pro-B Natriuret Pep Total Protein Albumin Lipase Procalcitonin TSH 3.96 H Urine Color Urine Clarity Urine pH Ur Specific [place] Urine Protein Urine Ketones Urine Blood Urine Nitrite Urine Bilirubin Urine Urobilinogen Ur Leukocyte Esterase Urine RBC Urine WBC Ur Epithelial Cells Urine Crystals Urine Bacteria Urine Casts Urine Mucus Ur Culture Indicated? Urine Glucose COVID-19 Source SARS-CoV-2 (PCR) Add-On Test Request 12/28/21 Unknown WBC RBC Hgb Hct MCV MCH MCHC RDW Plt Count MPV Immature Gran % Neutrophils % Band Neutrophils % Lymphocytes % Atypical Lymphs % Monocytes % Eosinophils % Basophils % Myelocytes % Nucleated RBC % Absolute Neutrophils Absolute Lymphocytes Absolute Monocytes Absolute Eosinophils Absolute Basophils RBC Morphology Sample Site ABG Sample Site Cancelled ABG pH Cancelled ABG pCO2 Cancelled ABG pO2 Cancelled ABG HCO3 Cancelled ABG Total CO2 Cancelled ABG O2 Saturation Cancelled ABG Base Excess Cancelled VBG pH VBG pCO2 VBG pO2 VBG HCO3 VBG Total CO2 VBG O2 Saturation VBG Base Excess VBG Lactate Oxygen Liter Flow Cancelled FiO2 Cancelled Sodium Potassium Chloride Carbon Dioxide Anion Gap BUN Creatinine Estimated GFR/1.73 m2 Glucose Calcium Magnesium Total Bilirubin Conjugated Bilirubin AST ALT Alkaline Phosphatase Troponin I NT-Pro-B Natriuret Pep Total Protein Albumin Lipase Procalcitonin TSH Urine Color Urine Clarity Urine pH Ur Specific [place] Urine Protein Urine Ketones Urine Blood Urine Nitrite Urine Bilirubin Urine Urobilinogen Ur Leukocyte Esterase Urine RBC Urine WBC Ur Epithelial Cells Urine Crystals Urine Bacteria Urine Casts Urine Mucus Ur Culture Indicated? Urine Glucose COVID-19 Source SARS-CoV-2 (PCR) Add-On Test Request Last Vital Signs Temp 36.8 C 12/28/21 11:32 Pulse 107 H 12/28/21 11:32 Resp 20 12/28/21 12:22 BP 107/74 12/28/21 11:45 Pulse Ox 97 12/28/21 12:22
--- NOTE | 2021-12-28 14:04 | CHAPLAIN ---
Chriss is intubated and will likely remain intubated today. He came to the ED from the [facility] in [facility]. Two corrections officers are with him. He has been incarcerated since July, they tell me. His Kathya, daughter Lita have been visiting. A son, Dylan and another daughter Chhaya are on their way. His dad's name is Michael. I will visit again when family is present.
--- NOTE | 2021-12-28 14:06 | NUR.NOTE ---
Spoke with sister of patient. She informed this engineering technical writer that he does have a living will. This engineering technical writer attempted to call correctional facility to see if they had a copy of it, they do not. I also spoke with Dayana from care management to see if she had a copy and she does not. As sister was leaving ICU, this engineering technical writer asked if she could get in touch with his to see if she has a copy of it, just in case it came down to needing it. She agreed. RN aware of this. Nursing Note:
[2021-12-28] MEDS: Normal Saline 500 ML 100 ML IV (14:12)
[2021-12-28 14:25] LABS: TCO2 (Venous) 15 mmol/l (24-29); pCO2 (Venous) 34 mmHg (41-51); pH (Venous) 7.23 (7.31-7.41); pO2 (Venous) 67 mmHg
[2021-12-28 14:26] LABS: BE (Venous) -14 mmol/L (-2-3); HCO3 (Venous) 14 mmol/L (23-28); O2 Sat (Venous) 89 %
[2021-12-28 14:27] LABS: Lactate 8.3 mmol/L (0.9-1.7)
[2021-12-28 14:29] LABS: Anion Gap 20.5 mmol/L (3-11); BUN 28 mg/dL (7-18); CO2 15.5 mmol/L (21.0-32.0); CREATININE 2.3 mg/dL (0.70-1.30); Chloride 96 mmol/L (98-107); Estimated GFR 29.35 (mL/min/1.73m2); Glucose 108 mg/dL (74-106); Potassium 3.9 mmol/L (3.5-5.1); Sodium 132 mmol/L (136-145)
[2021-12-28 15:18] LABS: Troponin I < 50 ng/L (<or=60)
[2021-12-28] MEDS: PROPOFOL 1,000 MG/100 ML BTL 20.684 MG IVPB (15:33)
[2021-12-28 16:20] LABS: *AMPHETAMINES SCREEN URINE Negative (Negative); *BARBITURATES SCREEN URINE Negative (Negative); *BENZODIAZEPINES SCREEN URINE Negative (Negative); Cannabinoids THC Negative (Negative); Cocaine Screen,Urine Negative (Negative); METHADONE URINE SCREEN Negative (Negative); OPIATES URINE SCREEN Negative (Negative)
[2021-12-28 16:29] LABS: Tricyclic Antidepressants Negative (Negative)
--- NOTE | 2021-12-28 16:45 | NUR.NOTE ---
Adilene Soria CCRN, in chart for educational documentation review Nursing Note:
[2021-12-28 18:23] LABS: Osmolality, Urine 322 mOsm/kg (150-1,150)
[2021-12-28 19:08] LABS: Osmolality Serum 282 mOsm/kg (275-295)
[2021-12-28] MEDS: PROPOFOL 1,000 MG/100 ML BTL 31.026 MG IVPB ×2 (19:18→22:39)
[2021-12-29] VITALS (77 sets, daily range): BP systolic 92–120; BP diastolic 43–76; PULSE 85–103; RESP 1–28; TEMP 36.7–37.4; O2SAT 94–97
[2021-12-29 00:09] LABS: Lactate 3.5 mmol/L (0.9-1.7)
[2021-12-29] MEDS: PROPOFOL 1,000 MG/100 ML BTL 31.026 MG IVPB ×3 (01:09→19:35)
[2021-12-29] MEDS: Normal Saline Flush 10 ML SYR IVP ×4 (04:42→19:33)
[2021-12-29] MEDS: PIPERACILLIN/TAZO 4.5 GM in Normal Saline 100 ML IVPB ×3 (06:00→22:19)
[2021-12-29] MEDS: DOBUTamine 500 MG/250 ML BAG 12.255 MG IV (06:01)
[2021-12-29 06:44] LABS: Abs Immature Grans 0.36 10^3/uL (0.0-0.06); HCT 36.1 % (40.0-50.0); HGB 12.2 g/dL (13.5-17.5); MCHC 33.8 % (32.0-36.0); MCV 86 fL (80-95); MPV 11.1 fL (8.0-11.0); Platelet Count 176 10^3/uL (130-400); RDW 14.2 % (11.8-14.1)
[2021-12-29 06:49] LABS: WBC 25.31 10^3/uL (4.4-10.8)
[2021-12-29 06:57] LABS: Prothrombin Time 19.7 sec (9.3-11.0)
[2021-12-29 07:18] LABS: Albumin 2.5 g/dL (3.4-5.0); Alkaline Phosphatase 165 U/L (46-116); Anion Gap 14.4 mmol/L (3-11); BUN 41 mg/dL (7-18); Bilirubin, Total 2.5 mg/dL (0.2-1.0); CO2 23.6 mmol/L (21.0-32.0); CREATININE 3.1 mg/dL (0.70-1.30); Calcium 7.5 mg/dL (8.5-10.1); Chloride 98 mmol/L (98-107); Glucose 110 mg/dL (74-106); Potassium 3.5 mmol/L (3.5-5.1); Sodium 136 mmol/L (136-145); Total Protein 5.9 g/dL (6.4-8.2)
[2021-12-29 07:26] LABS: Absolute Lymphocyte Count 1.77 10^3/uL (1.2-3.4); Absolute Monocyte Count 0.25 10^3/uL (0.1-0.8); Absolute Neutrophil Count 23.29 10^3/uL (1.2-6.7); Atypical Lymphocytes % 2; Bands % 0; Diff Comment Manual Differential; RBC Morphology Normal
[2021-12-29] MEDS: Albuterol/Ipratropium 3 ML UPD VIAL UPD ×4 (07:47→19:34)
[2021-12-29 07:48] LABS: ALT 3357 U/L (16-63); AST 6372 U/L (15-37)
[2021-12-29] MEDS: PROPOFOL 1,000 MG/100 ML BTL 12.927 MG IVPB (08:25)
[2021-12-29] MEDS: Heparin 5,000 UNITS/ML VIAL 5000 UNITS SC ×3 (08:32→23:38)
[2021-12-29] MEDS: Pantoprazole 40 MG VIAL IVP (08:32)
[2021-12-29] MEDS: Furosemide 40 MG/4 ML VIAL IVP ×3 (08:32→19:33)
--- NOTE | 2021-12-29 08:36 | W.PULMCC ---
General Date of Service Date of service: 12/29/21 Time of Service: 08:36 Reason for Admission to ICU: Hypoxic respiratory failure Lactic acidosis Assessment and Plan Assessment and plan (1) Respiratory failure with hypoxia: Status: Acute (2) COPD (chronic obstructive pulmonary disease): Status: Chronic (3) Cardiogenic shock: Status: Acute (4) Lactic acidosis: Status: Acute (5) Pneumonia: Status: Acute (6) High anion gap metabolic acidosis: Status: Acute (7) Hyponatremia: Status: Acute (8) Acute liver failure: Status: Acute (9) Acute renal failure: Status: Acute Assessment and plan: This is a 56 yo man with COPD and CHF who present with hypoxic respiratory failure requiring intubation found to have severe lactic acidosis and multi organ failure most consistent with cardiogenic shock. His pH and lactate have improved dramatically with dobutamine as has his urine output. His creatinine and LFT's are lagging behind with increases today. I was able to wean his FiO2 down to 35% today and he is doing well on a SBP. He is awake and able to follow commands on an awakening trial. He will benefit from one more day of intubation to facilitate further diuresis and support prior to extubation. Upon extubation I will plan to extubate to CPAP to reduce the risk for pulmonary edema. Also, given his history, I will start him on Precedex this evening to facilitate a smooth extubation. I suspect the increase in his LFT's is a delayed sign of shock liver from poor perfusion (residual signs from how sick he was yesterday) but I will test him for hepatitis and HIV given this jump. I also think his creatinine in lagging, particularly that now he is making good amount of urine. I decreased his dobutamine to 2.5 given the ectopy and NSVT he has been having. We will continue with aggressive diuresis today to optimize him prior to planned extubation tomorrow. Moving forward this gentleman may need AICD placement and should be in a facility that has the ability for advanced medical care given his advanced heart failure. Recommendations Pulmonary: Hypoxic respiratory failure - Volume assist control ventilation - lung protective ventilation 6-8cc/kg IBW tidal volumes, PEEP 5 is ok, FiO2 titrate to sat 90-94% - passed SBT today, if passes tomorrow will plan for extubation to CPAP - VAP prevention bundle - daily sedation vacation - daily spontaneous breathing trials - Duonebs QID - no PE COPD - not in exacerbation - ok for QID nebs for now Cardiac: Cardiogenic Shock - continue dobutamine - reduced to 2.5 - recommend diuresis as able - 40mg bid and prn to aim for a negative fluid balance CHF - holding Entresto and metoprolol given hypotension - holding atorvastatin given liver failure for now Renal: Acute renal failure with oliguria - diuresis and heart failure treatment - recommend renal friendly tube feeds - continue to monitor labs and urine output Lactic acidosis - continued supportive care - will repeat VBG and lactate this morning I&O: Intake & Output 12/26/21 12/27/21 12/28/21 12/29/21 23:59 23:59 23:59 23:59 Intake Total 2997.692 / 2997.692 1059.584 / 1059.584 Output Total 1665 / 1665 1100 / 1100 Balance 1332.692 / 1332.692 -40.416 / -40.416 Weight 81.7 kg Daily Fluid Goal:: negative 1 - 2 L in 24 hours GI Nutrition: Nutrition - recommend nutrition consult to start renal friendly tube feeds Acute liver failure - suspect congestive hepatopathy - with improved perfusion and diuresis I suspect this will improve - continue to trend LFT's daily - will test for acute hepatitis panel and HIV - discontinued acetaminophen given bump in LFT's today Infectious Disease: Pneumonia - continue Zosyn - agree with stopping vanc - procalcitonin negative - MRSA nares ordered this morning Hematologic: No acute concerns Neurologic: Sedated - on propofol - prn fentanyl for pain - awakened and followed commands on daily awakening trial Endocrine: No acute concerns Lines: PIV Atkins Left IJ CVC ETT OG Prophylaxis: heparin sub q Protonix Code Status: Resuscitation Status Full Code Subjective Critical and life-threatening events over the past 24 hours: Chriss was able to wake up and follow commands this morning during his awakening trial. He also was doing well during his spontaneous breathing trial, with volumes of 500cc and no tachypnea. He was having more ectopy and some runs of non sustained Vtach so I reduced the dobutamine. His LFT's and creatinine bumped reflective of his lack of perfusion yesterday. He put out alot of urine after starting dobutamine and Lasix yesterday. He will be started on tube feeds today. We obtained history from family that has been a challenge in the past to extubate. Exam Narrative Exam Narrative: POCUS 12/28/21: All cardiac views were well visualized. EF significantly reduced: EF 20% approximately. IVC is large with no respiratory variation. There is scant ascites around the liver. No other free fluid. No pleural effusions. No significant B-lines anteriorly. Large IJ on left. Gen: NAD, intubated and sedated HENT: PERRL, + JVD Chest: No respiratory distress, normal appearance of chest, no crackles or wheezing appreciated Heart: regular rate and rhythym, no murmurs, rubs or gallops Abdomen: Non-distended, soft, non tender Extremities: No clubbing, edema, improved warmth of extremities. No cyanosis. Neuro: intubated and sedated Psych: intubated and sedated Most Recent VS/Results Last Vital Signs Temp 36.7 C 12/29/21 05:08 Pulse 96 H 12/29/21 07:47 Resp 20 12/29/21 07:51 BP 105/58 L 12/29/21 05:01 Pulse Ox 95 12/29/21 07:47 Laboratory Results - last 24 hr 12/28/21 12/28/21 12/28/21 05:25 06:37 09:32 WBC RBC Hgb Hct MCV MCH MCHC RDW Plt Count MPV Immature Gran % Neutrophils % Band Neutrophils % Lymphocytes % Atypical Lymphs % Monocytes % Eosinophils % Basophils % Nucleated RBC % Absolute Neutrophils Absolute Lymphocytes Absolute Monocytes Absolute Eosinophils Absolute Basophils RBC Morphology PT INR ABG Sample Site ABG pH ABG pCO2 ABG pO2 ABG HCO3 ABG Total CO2 ABG O2 Saturation ABG Base Excess VBG pH Cancelled VBG pCO2 Cancelled VBG pO2 Cancelled VBG HCO3 Cancelled VBG Total CO2 Cancelled VBG O2 Saturation Cancelled VBG Base Excess Cancelled VBG Lactate Oxygen Liter Flow FiO2 Sodium Potassium Chloride Carbon Dioxide Anion Gap BUN Creatinine Estimated GFR/1.73 m2 Glucose Serum Osmolality 282 Calcium Total Bilirubin AST ALT Alkaline Phosphatase Troponin I Total Protein Albumin Procalcitonin 0.1 TSH Urine Osmolality Urine Opiates Screen Urine Methadone Screen Ur Barbiturates Screen Ur Tricyclics Screen Ur Amphetamines Screen U Benzodiazepines Scrn Urine Cocaine Screen Ur THC Screen 12/28/21 12/28/21 12/28/21 09:32 09:32 09:32 WBC RBC Hgb Hct MCV MCH MCHC RDW Plt Count MPV Immature Gran % Neutrophils % Band Neutrophils % Lymphocytes % Atypical Lymphs % Monocytes % Eosinophils % Basophils % Nucleated RBC % Absolute Neutrophils Absolute Lymphocytes Absolute Monocytes Absolute Eosinophils Absolute Basophils RBC Morphology PT INR ABG Sample Site ABG pH ABG pCO2 ABG pO2 ABG HCO3 ABG Total CO2 ABG O2 Saturation ABG Base Excess VBG pH 7.11 L* VBG pCO2 37 L VBG pO2 66 VBG HCO3 12 L VBG Total CO2 13 L VBG O2 Saturation 85 VBG Base Excess -18 L VBG Lactate Cancelled Oxygen Liter Flow FiO2 Sodium Potassium Chloride Carbon Dioxide Anion Gap BUN Creatinine Estimated GFR/1.73 m2 Glucose Serum Osmolality Calcium Total Bilirubin AST ALT Alkaline Phosphatase Troponin I Total Protein Albumin Procalcitonin TSH 3.96 H Urine Osmolality Urine Opiates Screen Urine Methadone Screen Ur Barbiturates Screen Ur Tricyclics Screen Ur Amphetamines Screen U Benzodiazepines Scrn Urine Cocaine Screen Ur THC Screen 12/28/21 12/28/21 12/28/21 09:32 09:40 09:40 WBC RBC Hgb Hct MCV MCH MCHC RDW Plt Count MPV Immature Gran % Neutrophils % Band Neutrophils % Lymphocytes % Atypical Lymphs % Monocytes % Eosinophils % Basophils % Nucleated RBC % Absolute Neutrophils Absolute Lymphocytes Absolute Monocytes Absolute Eosinophils Absolute Basophils RBC Morphology PT INR ABG Sample Site ABG pH ABG pCO2 ABG pO2 ABG HCO3 ABG Total CO2 ABG O2 Saturation ABG Base Excess VBG pH VBG pCO2 VBG pO2 VBG HCO3 VBG Total CO2 VBG O2 Saturation VBG Base Excess VBG Lactate 10.1 H* Oxygen Liter Flow FiO2 Sodium Potassium Chloride Carbon Dioxide Anion Gap BUN Creatinine Estimated GFR/1.73 m2 Glucose Serum Osmolality Calcium Total Bilirubin AST ALT Alkaline Phosphatase Troponin I Total Protein Albumin Procalcitonin TSH Urine Osmolality 322 Urine Opiates Screen Negative Urine Methadone Screen Negative Ur Barbiturates Screen Negative Ur Tricyclics Screen Negative Ur Amphetamines Screen Negative U Benzodiazepines Scrn Negative Urine Cocaine Screen Negative Ur THC Screen Negative 12/28/21 12/28/21 12/28/21 14:10 14:10 14:10 WBC RBC Hgb Hct MCV MCH MCHC RDW Plt Count MPV Immature Gran % Neutrophils % Band Neutrophils % Lymphocytes % Atypical Lymphs % Monocytes % Eosinophils % Basophils % Nucleated RBC % Absolute Neutrophils Absolute Lymphocytes Absolute Monocytes Absolute Eosinophils Absolute Basophils RBC Morphology PT INR ABG Sample Site ABG pH ABG pCO2 ABG pO2 ABG HCO3 ABG Total CO2 ABG O2 Saturation ABG Base Excess VBG pH 7.23 L VBG pCO2 34 L VBG pO2 67 VBG HCO3 14 L VBG Total CO2 15 L VBG O2 Saturation 89 VBG Base Excess -14 L VBG Lactate 8.3 H* Oxygen Liter Flow FiO2 Sodium 132 L Potassium 3.9 Chloride 96 L Carbon Dioxide 15.5 L Anion Gap 20.5 H BUN 28 H Creatinine 2.3 H Estimated GFR/1.73 m2 29.35 Glucose 108 H Serum Osmolality Calcium 8.0 L Total Bilirubin AST ALT Alkaline Phosphatase Troponin I Total Protein Albumin Procalcitonin TSH Urine Osmolality Urine Opiates Screen Urine Methadone Screen Ur Barbiturates Screen Ur Tricyclics Screen Ur Amphetamines Screen U Benzodiazepines Scrn Urine Cocaine Screen Ur THC Screen 12/28/21 12/28/21 12/28/21 14:10 23:40 Unknown WBC RBC Hgb Hct MCV MCH MCHC RDW Plt Count MPV Immature Gran % Neutrophils % Band Neutrophils % Lymphocytes % Atypical Lymphs % Monocytes % Eosinophils % Basophils % Nucleated RBC % Absolute Neutrophils Absolute Lymphocytes Absolute Monocytes Absolute Eosinophils Absolute Basophils RBC Morphology PT INR ABG Sample Site Cancelled ABG pH Cancelled ABG pCO2 Cancelled ABG pO2 Cancelled ABG HCO3 Cancelled ABG Total CO2 Cancelled ABG O2 Saturation Cancelled ABG Base Excess Cancelled VBG pH VBG pCO2 VBG pO2 VBG HCO3 VBG Total CO2 VBG O2 Saturation VBG Base Excess VBG Lactate 3.5 H* Oxygen Liter Flow Cancelled FiO2 Cancelled Sodium Potassium Chloride Carbon Dioxide Anion Gap BUN Creatinine Estimated GFR/1.73 m2 Glucose Serum Osmolality Calcium Total Bilirubin AST ALT Alkaline Phosphatase Troponin I < 50 Total Protein Albumin Procalcitonin TSH Urine Osmolality Urine Opiates Screen Urine Methadone Screen Ur Barbiturates Screen Ur Tricyclics Screen Ur Amphetamines Screen U Benzodiazepines Scrn Urine Cocaine Screen Ur THC Screen 12/29/21 12/29/21 12/29/21 06:00 06:00 06:00 WBC 25.31 H* RBC 4.20 L Hgb 12.2 L D Hct 36.1 L MCV 86 D MCH 29.0 MCHC 33.8 D RDW 14.2 H Plt Count 176 MPV 11.1 H Immature Gran % 0.0 Neutrophils % 92.0 Band Neutrophils % 0 Lymphocytes % 5.0 Atypical Lymphs % 2 Monocytes % 1.0 Eosinophils % 0.0 Basophils % 0.0 Nucleated RBC % 0.0 Absolute Neutrophils 23.29 H Absolute Lymphocytes 1.77 Absolute Monocytes 0.25 Absolute Eosinophils 0.00 Absolute Basophils 0.00 RBC Morphology Normal PT 19.7 H INR 2.0 H ABG Sample Site ABG pH ABG pCO2 ABG pO2 ABG HCO3 ABG Total CO2 ABG O2 Saturation ABG Base Excess VBG pH VBG pCO2 VBG pO2 VBG HCO3 VBG Total CO2 VBG O2 Saturation VBG Base Excess VBG Lactate Oxygen Liter Flow FiO2 Sodium 136 Potassium 3.5 Chloride 98 Carbon Dioxide 23.6 Anion Gap 14.4 H BUN 41 H Creatinine 3.1 H D Estimated GFR/1.73 m2 20.80 Glucose 110 H Serum Osmolality Calcium 7.5 L Total Bilirubin 2.5 H AST 6372 H ALT 3357 H Alkaline Phosphatase 165 H Troponin I Total Protein 5.9 L Albumin 2.5 L Procalcitonin TSH Urine Osmolality Urine Opiates Screen Urine Methadone Screen Ur Barbiturates Screen Ur Tricyclics Screen Ur Amphetamines Screen U Benzodiazepines Scrn Urine Cocaine Screen Ur THC Screen Review of Systems Unobtainable due to endotracheal tube Time spent with patient Time spent in Critical Care: 45 Time spent in Critical care included: Chart review, Documenting critically ill care, Time at immediate bedside and Discussing critically ill care with other medical staff Multi-Disciplinary Checklist Lines/Tubes CENTRAL LINE: yes, Central Line Day#: 1 ARTERIAL LINE: no ATKINS: yes, Atkins Day#: 1 ENDOTRACHEAL TUBE: yes, Endotracheal Tube Day#: 1 Sedation: yes, Sedation Vacation: yes Head of Bed@30 degrees: yes Spontaneous Breathing Trial: yes ICU Maintenance GLUCOSE 140-180mg/dL: no, Reason/Intervention: starting tube feeds today PRESSURE ULCER: no RESTRAINTS: yes, Reviewed Necessity: Yes ANTIBIOTICS(if yes, consider Stewardship): Yes Social Issues FAMILY UPDATED: yes PT/OT: no, Reason/Intervention: not appropriate at this time GOALS/DISPOSITION/ACCOUNTANT MANAGER: yes CODE STATUS: Full Prophylaxis DVT PROPHYLAXIS: yes GI PROPHYLAXIS: yes, Indication: intubated
--- NOTE | 2021-12-29 08:47 | PDOC.CMPRO ---
- If Service Date Differs Date of service: 12/29/21 Time of Service: 08:47 Care Management Progress Note S/O: CM spoke with Annemarie Mckeon from [facility] this morning and provided requested updates. Per Annemarie, it is unclear if Chriss has a Living Will. If documentation is found, it will be faxed to CM. Chriss remains intubated and sedated in the ICU. Hospitalist is following, Pulmonology is consulted and plan to extubate to CPAP tomorrow if passes SBT. Once Chriss is off the ventilator and stable he may require transfer to [facility] or [facility] for a pacemaker. Disposition will be dependent on patients goals of care once medically stable. A: 56 year old male admitted to [facility] on 12/28/21 for Respiratory Failure P: Chriss is currently intubated in the ICU. He continues to be closely monitored and treated. Disposition will be coordinated through [facility], where he is incarcerated. CM continues to follow. Annemarie Mckeon/[facility]:
[2021-12-29 09:04] LABS: BE (Venous) -4 mmol/L (-2-3); HCO3 (Venous) 20 mmol/L (23-28); O2 Sat (Venous) 86 %; TCO2 (Venous) 21 mmol/l (24-29); pCO2 (Venous) 33 mmHg (41-51); pO2 (Venous) 51 mmHg
[2021-12-29] MEDS: PROPOFOL 1,000 MG/100 ML BTL 25.855 MG IVPB ×3 (12:15→23:34)
--- NOTE | 2021-12-29 14:40 | PGE_ITS ---
Date of Service Date of service: 12/29/21 Time of Service: 14:41 Assessment and Plan Assessment and plan (1) Pneumonia: Status: Acute Assessment and plan: Questionable dx. Small infiltrate possibly seen on CXR. Procal 0.1 His WBC count has increased but is stable and did well on 3 hour spontaneous breathing trial. VBG lactate decreased to 2.0 Will cont Zosyn Monitor CBC, Temp. (2) Acute renal failure: Status: Acute Assessment and plan: Secondary to cardiogenic shock. Creatinine at baseline is 1.1. Now 2.2 > 3.1 Diuresing. Cont lasix; giving TID dosing today. Continue dobutamine / urine output improving. (3) Lactic acidosis: Status: Acute Assessment and plan: Treating PNA and cardiogenic shock. Lactate is improving; now 2.0. Monitoring. (4) Cardiogenic shock: Status: Acute Assessment and plan: Know CAD and global hypokinesis; Echocardiogram and NM perfusion scanning at recent admission. Dobutamine and diureses. Cont dobutamine today and tomorrow. Will need to discuss with cardiology further steps once he is extubated and s table; Pacemaker? REstart Entresto and metoprolol if/when appropriate. (5) Respiratory failure with hypoxia: Status: Acute Assessment and plan: Pulmonary edema and COPD (not in exacerbation). Volume assist control ventilation. Did well on spont. breathing trial today. Roving Frame Tender following. Humza, CT chest w/o pulmonnary emboli. + bibasilar densities; atelectasis vs infiltrates. Planning to initiated Precedx at midnight, then Dr Soto will extubate in AM, then immediately to BiPAP. (6) Discharge planning issues: Status: Acute Assessment and plan: Pt is a full code. Incarcerated. (7) CHF (congestive heart failure): Status: Chronic Assessment and plan: Est EF of 20-25%. Currently on dobutamine. Lasix 40mg IV BID. (giving TID dose today). Routinely is on Entresto and metoprolol. Hold d/t hypotension. (8) Acute liver disease: Status: Acute Assessment and plan: Bilirubin improved but LFTs significantly higher D/T cardiogenic shock and likely hepatic congestion most likely. Will check viral hepatitis panel and HIV status. Avoid hepatotoxins. Monitor. Subjective Subjective Patient reports: afebrile; denies diarrhea or vomiting Interval history since last seen: Sedated, Intubated Exam Const Nutritional Appearance: overweight Orientation: not awake (sedated) Resp Effort & Inspection: not labored Auscultation: clear to auscultation bilaterally Cardio Rate: regular rate Rhythm: regular rhythm Heart Sounds: S1 normal and S2 normal GI Inspection: non-distended Palpation: soft Extrem General: normal to inspection, no pedal edema and no cyanosis Objective Last Vital Signs Temp 37.4 C 12/29/21 13:13 Pulse 93 H 12/29/21 13:13 Resp 19 12/29/21 14:11 BP 103/67 12/29/21 13:13 Pulse Ox 97 12/29/21 14:11 Laboratory Results - last 24 hr 12/28/21 12/28/21 12/28/21 05:25 09:40 09:40 WBC RBC Hgb Hct MCV MCH MCHC RDW Plt Count MPV Immature Gran % Neutrophils % Band Neutrophils % Lymphocytes % Atypical Lymphs % Monocytes % Eosinophils % Basophils % Nucleated RBC % Absolute Neutrophils Absolute Lymphocytes Absolute Monocytes Absolute Eosinophils Absolute Basophils RBC Morphology PT INR VBG pH VBG pCO2 VBG pO2 VBG HCO3 VBG Total CO2 VBG O2 Saturation VBG Base Excess VBG Lactate Sodium Potassium Chloride Carbon Dioxide Anion Gap BUN Creatinine Estimated GFR/1.73 m2 Glucose Serum Osmolality 282 Calcium Total Bilirubin AST ALT Alkaline Phosphatase Troponin I Total Protein Albumin Urine Osmolality 322 Urine Opiates Screen Negative Urine Methadone Screen Negative Ur Barbiturates Screen Negative Ur Tricyclics Screen Negative Ur Amphetamines Screen Negative U Benzodiazepines Scrn Negative Urine Cocaine Screen Negative Ur THC Screen Negative 12/28/21 12/28/21 12/29/21 14:10 23:40 06:00 WBC RBC Hgb Hct MCV MCH MCHC RDW Plt Count MPV Immature Gran % Neutrophils % Band Neutrophils % Lymphocytes % Atypical Lymphs % Monocytes % Eosinophils % Basophils % Nucleated RBC % Absolute Neutrophils Absolute Lymphocytes Absolute Monocytes Absolute Eosinophils Absolute Basophils RBC Morphology PT INR VBG pH VBG pCO2 VBG pO2 VBG HCO3 VBG Total CO2 VBG O2 Saturation VBG Base Excess VBG Lactate 3.5 H* Sodium 136 Potassium 3.5 Chloride 98 Carbon Dioxide 23.6 Anion Gap 14.4 H BUN 41 H Creatinine 3.1 H D Estimated GFR/1.73 m2 20.80 Glucose 110 H Serum Osmolality Calcium 7.5 L Total Bilirubin 2.5 H AST 6372 H ALT 3357 H Alkaline Phosphatase 165 H Troponin I < 50 Total Protein 5.9 L Albumin 2.5 L Urine Osmolality Urine Opiates Screen Urine Methadone Screen Ur Barbiturates Screen Ur Tricyclics Screen Ur Amphetamines Screen U Benzodiazepines Scrn Urine Cocaine Screen Ur THC Screen 12/29/21 12/29/21 12/29/21 06:00 06:00 08:40 WBC 25.31 H* RBC 4.20 L Hgb 12.2 L D Hct 36.1 L MCV 86 D MCH 29.0 MCHC 33.8 D RDW 14.2 H Plt Count 176 MPV 11.1 H Immature Gran % 0.0 Neutrophils % 92.0 Band Neutrophils % 0 Lymphocytes % 5.0 Atypical Lymphs % 2 Monocytes % 1.0 Eosinophils % 0.0 Basophils % 0.0 Nucleated RBC % 0.0 Absolute Neutrophils 23.29 H Absolute Lymphocytes 1.77 Absolute Monocytes 0.25 Absolute Eosinophils 0.00 Absolute Basophils 0.00 RBC Morphology Normal PT 19.7 H INR 2.0 H VBG pH Cancelled VBG pCO2 Cancelled VBG pO2 Cancelled VBG HCO3 Cancelled VBG Total CO2 Cancelled VBG O2 Saturation Cancelled VBG Base Excess Cancelled VBG Lactate Sodium Potassium Chloride Carbon Dioxide Anion Gap BUN Creatinine Estimated GFR/1.73 m2 Glucose Serum Osmolality Calcium Total Bilirubin AST ALT Alkaline Phosphatase Troponin I Total Protein Albumin Urine Osmolality Urine Opiates Screen Urine Methadone Screen Ur Barbiturates Screen Ur Tricyclics Screen Ur Amphetamines Screen U Benzodiazepines Scrn Urine Cocaine Screen Ur THC Screen 12/29/21 12/29/21 08:52 08:52 WBC RBC Hgb Hct MCV MCH MCHC RDW Plt Count MPV Immature Gran % Neutrophils % Band Neutrophils % Lymphocytes % Atypical Lymphs % Monocytes % Eosinophils % Basophils % Nucleated RBC % Absolute Neutrophils Absolute Lymphocytes Absolute Monocytes Absolute Eosinophils Absolute Basophils RBC Morphology PT INR VBG pH 7.40 VBG pCO2 33 L VBG pO2 51 VBG HCO3 20 L VBG Total CO2 21 L VBG O2 Saturation 86 VBG Base Excess -4 L VBG Lactate 2.0 H Sodium Potassium Chloride Carbon Dioxide Anion Gap BUN Creatinine Estimated GFR/1.73 m2 Glucose Serum Osmolality Calcium Total Bilirubin AST ALT Alkaline Phosphatase Troponin I Total Protein Albumin Urine Osmolality Urine Opiates Screen Urine Methadone Screen Ur Barbiturates Screen Ur Tricyclics Screen Ur Amphetamines Screen U Benzodiazepines Scrn Urine Cocaine Screen Ur THC Screen
--- NOTE | 2021-12-29 15:26 | CHAPLAIN ---
Chriss is continues to be sedated and intubated today, with possible trials for extubation tomorrow. There was a family member (sister or mother?) at his bedside today. Family members are taking turns visiting Chriss to comply with the two-person visitation limit. I explained my role and offered support and let her know that hotel and dining room cashier is available at any time. I will continue to visit.
[2021-12-30] VITALS (77 sets, daily range): BP systolic 72–121; BP diastolic 35–77; PULSE 68–112; RESP 1–24; TEMP 36.6–37.1; O2SAT 88–98
[2021-12-30] MEDS: dexmedeTOMidine IN 0.9 % NACL 400 MCG/100 ML BTL 8.17 MCG IVPB (00:23)
--- NOTE | 2021-12-30 03:23 | NUR.NOTE ---
0330-tube feeding turned off in anticipation of extubation. Aspirated 100 cc of tube feed easily. tube clamped for now.
[2021-12-30] MEDS: PROPOFOL 1,000 MG/100 ML BTL 5.171 MG IVPB (04:54)
[2021-12-30] MEDS: Normal Saline Flush 10 ML SYR IVP ×5 (05:43→20:42)
[2021-12-30] MEDS: PIPERACILLIN/TAZO 4.5 GM in Normal Saline 100 ML IVPB ×3 (05:49→20:42)
[2021-12-30 06:09] LABS: BE (Venous) 2 mmol/L (-2-3); HCO3 (Venous) 26 mmol/L (23-28); O2 Sat (Venous) 83 %; TCO2 (Venous) 23 mmol/L (24-29); pCO2 (Venous) 39 mmHg (41-51); pH (Venous) 7.44 (7.31-7.41); pO2 (Venous) 47 mmHg
[2021-12-30 06:11] LABS: Abs Immature Grans 0.22 10^3/uL (0.0-0.06); Absolute Basophil Count 0.04 10^3/uL (0.0-0.2); Basophils % 0.2; HCT 39.4 % (40.0-50.0); HGB 13.2 g/dL (13.5-17.5); Lymphocytes % 5.2; MCH 28.6 pg (27.0-33.0); MCHC 33.5 % (32.0-36.0); MCV 86 fL (80-95); MPV 11.1 fL (8.0-11.0); Monocytes % 6.3; Neutrophils % 87.3; Nucleated RBC 0.1 % (0.0-0.3); Platelet Count 201 10^3/uL (130-400); RBC 4.61 10^6/uL (4.36-5.78); RDW 14.5 % (11.8-14.1); RDW-SD 45.1 fL; WBC 21.94 10^3/uL (4.4-10.8)
[2021-12-30 06:17] LABS: Absolute Lymphocyte Count 1.14 10^3/uL (1.2-3.4); Absolute Monocyte Count 1.38 10^3/uL (0.1-0.8); Absolute Neutrophil Count 19.15 10^3/uL (1.2-6.7)
[2021-12-30 06:48] LABS: Albumin 2.7 g/dL (3.4-5.0); Alkaline Phosphatase 178 U/L (46-116); BUN 59 mg/dL (7-18); Bilirubin, Total 2.2 mg/dL (0.2-1.0); Calcium 7.8 mg/dL (8.5-10.1); Chloride 98 mmol/L (98-107); Glucose 123 mg/dL (74-106); Potassium 3.2 mmol/L (3.5-5.1); Sodium 140 mmol/L (136-145); Total Protein 6.5 g/dL (6.4-8.2)
[2021-12-30 07:07] LABS: ALT 2735 U/L (16-63); AST 2438 U/L (15-37)
[2021-12-30] MEDS: Albuterol/Ipratropium 3 ML UPD VIAL UPD ×4 (07:25→20:41)
--- NOTE | 2021-12-30 07:49 | W.PULMCC ---
General Date of Service Date of service: 12/30/21 Time of Service: 07:00 Reason for Admission to ICU: Hypoxic respiratory failure Cardiogenic failure Assessment and Plan Assessment and plan (1) Respiratory failure with hypoxia: Status: Acute (2) COPD (chronic obstructive pulmonary disease): Status: Chronic (3) Cardiogenic shock: Status: Acute (4) Lactic acidosis: Status: Acute (5) Pneumonia: Status: Acute (6) High anion gap metabolic acidosis: Status: Acute (7) Hyponatremia: Status: Acute (8) Acute liver failure: Status: Acute (9) Acute renal failure: Status: Acute Assessment and plan: This is a 56 yo man with COPD and CHF who present with hypoxic respiratory failure requiring intubation found to have severe lactic acidosis and multi organ failure most consistent with cardiogenic shock. His pH and lactate have improved dramatically with dobutamine as has his urine output. His creatinine and LFT's are lagging behind with increases today. I was able to wean his FiO2 down to 35% today and he is doing well on a SBP. He is awake and able to follow commands on an awakening trial. He was started on Precedex to facilitate extubation which was completed overnight and he was extubated to CPAP this morning successfully. I suspect the increase in his LFT's is a delayed sign of shock liver from poor perfusion (residual signs from how sick he was yesterday) but I will test him for hepatitis and HIV given this jump. I also think his creatinine in lagging, particularly that now he is making good amount of urine. I decreased his dobutamine to 2.5 given the ectopy and NSVT he has been having. He did diurese significantly, however his creatinine took a significant bump and has likely been over diuresed. I recommend holding further diuresis and allow the patient to eat and drink today and have his kidney's work on their own to decrease injury to them moving forward. Recommendations Pulmonary: Hypoxic respiratory failure - extubated to CPAP this morning on Precedex - can transition off of CPAP in an hour or too to nasal cannula - Duonebs QID - no PE COPD - not in exacerbation - ok for QID nebs for now Cardiac: Cardiogenic Shock - continue dobutamine - reduced to 2.5 - can try stopping dobutamine later today or tomorrow morning depending on clinical course - recommend holding diuresis today CHF - holding Entresto and metoprolol given hypotension - holding atorvastatin given liver failure for now Renal: Acute renal failure with oliguria - hold diuresis today - continue to monitor labs and urine output Lactic acidosis - continued supportive care I&O: Intake & Output 12/27/21 12/28/21 12/29/21 12/30/21 23:59 23:59 23:59 23:59 Intake Total 2997.692 / 2997.692 1707.538 / 1707.538 100.000 / 100.000 Output Total 1665 / 1665 5175 / 5175 2650 / 2650 Balance 1332.692 / 1332.692 -3467.462 / -3467.462 -2550.000 / -2550.000 Weight 81.7 kg 83.7 kg Daily Fluid Goal:: even todau GI Nutrition: Nutrition - ok for diet after bedside swallow study Acute liver failure - suspect congestive hepatopathy - improving - continue to trend LFT's daily - will test for acute hepatitis panel and HIV - discontinued acetaminophen given bump in LFT's today Infectious Disease: Pneumonia - continue Zosyn - procalcitonin negative - MRSA nares pending Hematologic: No acute concerns Neurologic: Sedation - on Precedex - can wean off this today Endocrine: No acute concerns Lines: PIV Miller Left IJ CVC Prophylaxis: heparin sub q Protonix Code Status: Resuscitation Status Full Code Subjective Critical and life-threatening events over the past 24 hours: Chriss did well overnight. He also was started on Precedex overnight to facilitate extubate which he did tolerate. He is negative 5.5 L since yesterday. His LFT's did improve. This morning he is doing well on his spontaneous breathing trial. He is also awake, responsive and following commands on his awakening trial. Exam Narrative Exam Narrative: POCUS 12/28/21: All cardiac views were well visualized. EF significantly reduced: EF 20% approximately. IVC is large with no respiratory variation. There is scant ascites around the liver. No other free fluid. No pleural effusions. No significant B-lines anteriorly. Large IJ on left. Gen: NAD, intubated and sedated HENT: PERRL, Chest: No respiratory distress, normal appearance of chest, no crackles or wheezing appreciated Heart: regular rate and rhythym, no murmurs, rubs or gallops Abdomen: Non-distended, soft, non tender Extremities: No clubbing, edema, improved warmth of extremities. No cyanosis. Neuro: intubated and sedated Psych: intubated and sedated Most Recent VS/Results Last Vital Signs Temp 37 C 12/30/21 05:00 Pulse 92 H 12/30/21 07:25 Resp 17 12/30/21 06:01 BP 121/77 12/30/21 06:01 Pulse Ox 95 12/30/21 07:25 Laboratory Results - last 24 hr 12/29/21 12/29/21 12/29/21 08:40 08:52 08:52 WBC RBC Hgb Hct MCV MCH MCHC RDW Plt Count MPV Immature Gran % Neutrophils % Lymphocytes % Monocytes % Eosinophils % Basophils % Nucleated RBC % Absolute Neutrophils Absolute Lymphocytes Absolute Monocytes Absolute Eosinophils Absolute Basophils VBG pH Cancelled 7.40 VBG pCO2 Cancelled 33 L VBG pO2 Cancelled 51 VBG HCO3 Cancelled 20 L VBG Total CO2 Cancelled 21 L VBG O2 Saturation Cancelled 86 VBG Base Excess Cancelled -4 L VBG Lactate 2.0 H Sodium Potassium Chloride Carbon Dioxide Anion Gap BUN Creatinine Estimated GFR/1.73 m2 Glucose Calcium Total Bilirubin AST ALT Alkaline Phosphatase Total Protein Albumin 12/30/21 12/30/21 12/30/21 06:02 06:02 06:02 WBC 21.94 H RBC 4.61 Hgb 13.2 L Hct 39.4 L MCV 86 MCH 28.6 MCHC 33.5 RDW 14.5 H Plt Count 201 MPV 11.1 H Immature Gran % 1.0 Neutrophils % 87.3 Lymphocytes % 5.2 Monocytes % 6.3 Eosinophils % 0.0 Basophils % 0.2 Nucleated RBC % 0.1 Absolute Neutrophils 19.15 H Absolute Lymphocytes 1.14 L Absolute Monocytes 1.38 H Absolute Eosinophils 0.00 Absolute Basophils 0.04 VBG pH 7.44 H VBG pCO2 39 L VBG pO2 47 VBG HCO3 26 VBG Total CO2 23 L VBG O2 Saturation 83 VBG Base Excess 2 VBG Lactate Sodium 140 Potassium 3.2 L Chloride 98 Carbon Dioxide 27.0 Anion Gap 15.0 H BUN 59 H Creatinine 4.0 H* Estimated GFR/1.73 m2 15.50 Glucose 123 H Calcium 7.8 L Total Bilirubin 2.2 H AST 2438 H ALT 2735 H Alkaline Phosphatase 178 H Total Protein 6.5 Albumin 2.7 L Review of Systems Unobtainable due to endotracheal tube Time spent with patient Time spent in Critical Care: 45 Time spent in Critical care included: Chart review, Documenting critically ill care, Time at immediate bedside and Discussing critically ill care with other medical staff
[2021-12-30] MEDS: Heparin 5,000 UNITS/ML VIAL 5000 UNITS SC ×3 (08:59→23:59)
[2021-12-30] MEDS: Pantoprazole 40 MG VIAL IVP (08:59)
--- NOTE | 2021-12-30 09:17 | CMPROGNOTE_ITS ---
- If Service Date Differs Date of service: 12/30/21 Time of Service: 09:17 Care Management Progress Note S/O: Chriss was extubated to CPAP this morning on Precedex. Hospitalist is following, Pulmonology is consulted . Per Annemarie Mckeon from [facility] there is no formal plan to release patient from [facility] custody. If Chriss requires transfer to a tertiary hospital for a pacemaker, DOC prefers he transfer to [facility] or [facility]. Disposition will be dependent on patients goals of care and will be approved by [facility] prior to transfer. Anticipate, Chriss will need to transfer to a Correctional Facility that can accommodate the complexity of his medical needs. A: 56 year old male admitted to [facility] on 12/28/21 for Respiratory Failure P: Chriss continues to be closely monitored and treated in the ICU. Disposition will be coordinated through [facility], where he is incarcerated. CM continues to follow. Annemarie Mckeon/[facility]:
--- NOTE | 2021-12-30 09:17 | PDOC.CMPRO ---
- If Service Date Differs Date of service: 12/30/21 Time of Service: 09:17 Care Management Progress Note S/O: Chriss was extubated to CPAP this morning on Precedex. Hospitalist is following, Pulmonology is consulted . Per Annemarie Mckeon from [facility] there is no formal plan to release patient from [facility] custody. If Chriss requires transfer to a tertiary hospital for a pacemaker, DOC prefers he transfer to [facility] or [facility]. Disposition will be dependent on patients goals of care and will be approved by [facility] prior to transfer. Anticipate, Chriss will need to transfer to a Correctional Facility that can accommodate the complexity of his medical needs. A: 56 year old male admitted to [facility] on 12/28/21 for Respiratory Failure P: Chriss continues to be closely monitored and treated in the ICU. Disposition will be coordinated through [facility], where he is incarcerated. CM continues to follow. Annemarie Mckeon/[facility]:
[2021-12-30] MEDS: POTASSIUM CHLORIDE 20 MEQ/100 ML BAG 100 MEQ IVPB (09:23)
--- NOTE | 2021-12-30 10:29 | W.PM.PROGNOT ---
Date of Service Date of service: 12/30/21 Time of Service: 10:29 Assessment and Plan Assessment and plan (1) Pneumonia: Status: Acute Assessment and plan: Questionable dx. Small infiltrate possibly seen on CXR. Procal 0.1 His WBC count now decreasing. VBG lactate decreased to 2.0 Will cont Zosyn Monitor CBC, Temp. (2) Acute renal failure: Status: Acute Assessment and plan: Secondary to cardiogenic shock. Creatinine at baseline is 1.1. Now 2.2 > 3.1>4.0 Elevation could be secondary to diuresis. stopped lasix. Encourage fluid intake. Continue dobutamine for now and consider stopping later today. (3) Lactic acidosis: Status: Acute Assessment and plan: Treating PNA and cardiogenic shock. Lactate improved to 2. VBG pH today of 7.44. (4) Cardiogenic shock: Status: Acute Assessment and plan: Know CAD and global hypokinesis; Echocardiogram and NM perfusion scanning at recent admission Continue dobutamine and stop lasix. Will need to discuss with cardiology further steps once he is extubated and stable; Pacemaker? Restart Entresto and metoprolol if/when appropriate. (5) Respiratory failure with hypoxia: Status: Acute Assessment and plan: Extubated and placed temporarily on BiPAP to avoid risk of flash pulmonary edema. Stable (6) Discharge planning issues: Status: Acute Assessment and plan: Pt is a full code. He is to be released from long term custody today. (7) CHF (congestive heart failure): Status: Chronic Assessment and plan: Est EF of 20-25%. Currently on dobutamine. Diuresed well with lasix. Routinely is on Entresto and metoprolol. Hold d/t hypotension. (8) Acute liver disease: Status: Acute Assessment and plan: Bilirubin improved but LFTs increased significantly but now on the decline. D/T cardiogenic shock and likely hepatic congestion most likely. Viral hepatitis panel and HIV pending. Avoid hepatotoxins. Monitor. Subjective Subjective Patient reports: tolerating liquids well and afebrile; denies nausea, vomiting or shortness of breath Interval history since last seen: Pt extubated this AM w/o incident. Exam Narrative Exam Narrative: Pt now extubated. Const General: cooperative and no acute distress Nutritional Appearance: overweight Orientation: alert, oriented to person and oriented to place Eyes General: appearance normal, both eyes and all related structures Resp Effort & Inspection: normal respiratory effort Auscultation: clear to auscultation bilaterally Cardio Rate: regular rate Rhythm: regular rhythm Heart Sounds: S1 normal and S2 normal GI Inspection: non-distended Palpation: soft and nontender Extrem General: normal to inspection, no pedal edema and no cyanosis Objective Last Vital Signs Temp 36.6 C 12/30/21 08:00 Pulse 87 12/30/21 09:01 Resp 16 12/30/21 10:00 BP 114/70 12/30/21 09:01 Pulse Ox 98 12/30/21 10:00 Laboratory Results - last 24 hr 12/30/21 12/30/21 12/30/21 06:02 06:02 06:02 WBC 21.94 H RBC 4.61 Hgb 13.2 L Hct 39.4 L MCV 86 MCH 28.6 MCHC 33.5 RDW 14.5 H Plt Count 201 MPV 11.1 H Immature Gran % 1.0 Neutrophils % 87.3 Lymphocytes % 5.2 Monocytes % 6.3 Eosinophils % 0.0 Basophils % 0.2 Nucleated RBC % 0.1 Absolute Neutrophils 19.15 H Absolute Lymphocytes 1.14 L Absolute Monocytes 1.38 H Absolute Eosinophils 0.00 Absolute Basophils 0.04 VBG pH 7.44 H VBG pCO2 39 L VBG pO2 47 VBG HCO3 26 VBG Total CO2 23 L VBG O2 Saturation 83 VBG Base Excess 2 Sodium 140 Potassium 3.2 L Chloride 98 Carbon Dioxide 27.0 Anion Gap 15.0 H BUN 59 H Creatinine 4.0 H* Estimated GFR/1.73 m2 15.50 Glucose 123 H Calcium 7.8 L Total Bilirubin 2.2 H AST 2438 H ALT 2735 H Alkaline Phosphatase 178 H Total Protein 6.5 Albumin 2.7 L
[2021-12-30 11:05] LABS: Hepatitis A Antibody IgM Negative (Negative); Hepatitis B Core Antibody Negative (Negative); Hepatitis B surface Ag Negative (Negative); Hepatitis C Ab w Rflx HCV PCR Negative (Negative)
[2021-12-30 11:12] LABS: HIV-1/2 Ag & Ab Screen Negative (Negative)
[2021-12-30] MEDS: Omeprazole 20 MG CAPCR PO (20:41)
[2021-12-30] MEDS: Melatonin 3 MG TAB PO (20:45)
[2021-12-30] MEDS: Pramipexole 0.25 MG TAB 0.125 MG PO (23:59)
[2021-12-31] VITALS (67 sets, daily range): BP systolic 76–121; BP diastolic 43–81; PULSE 43–98; RESP 1–37; TEMP 36.6–37.4; O2SAT 88–94
[2021-12-31] MEDS: PIPERACILLIN/TAZO 4.5 GM in Normal Saline 100 ML IVPB (05:39)
[2021-12-31] MEDS: Normal Saline Flush 10 ML SYR IVP ×2 (05:39→18:25)
[2021-12-31 06:24] LABS: Abs Immature Grans 0.15 10^3/uL (0.0-0.06); Absolute Basophil Count 0.03 10^3/uL (0.0-0.2); Absolute Lymphocyte Count 2.24 10^3/uL (1.2-3.4); Absolute Monocyte Count 1.43 10^3/uL (0.1-0.8); Basophils % 0.2; Eosinophils % 0.6; HCT 39.4 % (40.0-50.0); HGB 13.1 g/dL (13.5-17.5); Immature Grans % 0.9; Lymphocytes % 13.9; MCH 27.9 pg (27.0-33.0); MCHC 33.2 % (32.0-36.0); MCV 84 fL (80-95); MPV 11.1 fL (8.0-11.0); Monocytes % 8.9; Neutrophils % 75.5; Platelet Count 198 10^3/uL (130-400); RBC 4.69 10^6/uL (4.36-5.78); RDW 14.8 % (11.8-14.1); RDW-SD 44.8 fL; WBC 16.08 10^3/uL (4.4-10.8)
[2021-12-31 06:29] LABS: Absolute Neutrophil Count 12.14 10^3/uL (1.2-6.7)
[2021-12-31 06:42] LABS: AST 670 U/L (15-37); Albumin 2.4 g/dL (3.4-5.0); Alkaline Phosphatase 140 U/L (46-116); BUN 65 mg/dL (7-18); Bilirubin, Total 1.9 mg/dL (0.2-1.0); Calcium 7.8 mg/dL (8.5-10.1); Chloride 95 mmol/L (98-107); Estimated GFR 15.96 (mL/min/1.73m2); Glucose 74 mg/dL (74-106); Sodium 137 mmol/L (136-145); Total Protein 5.9 g/dL (6.4-8.2)
[2021-12-31 06:50] LABS: CREATININE 3.9 mg/dL (0.70-1.30); Potassium 2.9 mmol/L (3.5-5.1)
[2021-12-31 06:56] LABS: ALT 1153 U/L (16-63)
[2021-12-31] MEDS: Albuterol/Ipratropium 3 ML UPD VIAL UPD (07:24)
[2021-12-31] MEDS: DOBUTamine 500 MG/250 ML BAG 6.128 MG IV (08:25)
--- NOTE | 2021-12-31 08:28 | PUCC_ITS ---
General Date of Service Date of service: 12/31/21 Time of Service: 08:00 Reason for Admission to ICU: Hypoxic respiratory failure Cardiogenic failure Assessment and Plan Assessment and plan (1) Respiratory failure with hypoxia: Status: Acute (2) COPD (chronic obstructive pulmonary disease): Status: Chronic (3) Cardiogenic shock: Status: Acute (4) Lactic acidosis: Status: Acute (5) Pneumonia: Status: Acute (6) High anion gap metabolic acidosis: Status: Acute (7) Hyponatremia: Status: Acute (8) Acute liver failure: Status: Acute (9) Acute renal failure: Status: Acute Assessment and plan: This is a 56 yo man with COPD and CHF who present with hypoxic respiratory failure requiring intubation found to have severe lactic acidosis and multi organ failure most consistent with cardiogenic shock. He has improved dramatically with diuresis and dobutamine in addition to supportive care. He is now extubated and on room air. His blood pressure is still very dependant on dobutamine, despite the dose only being 2.5. We will continue to try and work on this over the weekend. I will give him 250cc of LR to try and make up some ground on his auto-diuresis but would not recommend more fluid to be given than this. Our hands our are tied with the use of other goal directed therapy given his blood pressure constraints. If over the weekend he cannot be liberated from the dobutamine I do think he should be transferred to a tertiary care center for advanced heart failure care (for inotropy support as well as placement of AICD/pacer). It is also my medical opinion that when he returns to incarceration he needs to be at a facility that accommodate his advanced medical needs. Recommendations Pulmonary: Hypoxic respiratory failure - resolved, now on room air - stop nebs COPD - not in exacerbation - can restart his home inhalers - Symbicort while admitted - albuterol prn - stop standing nebs Cardiac: Cardiogenic Shock - continue dobutamine as needed to maintain MAP>60mmHg - recommend holding diuresis - will give 250cc LR today to make up some losses CHF - holding Entresto and metoprolol given hypotension - can restart atorvastatin once LFT's more close to baseline Renal: Acute renal failure - hold diuresis - giving back 250cc LR - continue to monitor labs and urine output Lactic acidosis - resolved - continued supportive care I&O: Intake & Output 12/28/21 12/29/21 12/30/21 12/31/21 23:59 23:59 23:59 23:59 Intake Total 2997.692 / 2997.692 1707.538 / 8555.514 8528.274 / 1961.274 145.634 / 145.634 Output Total 1665 / 1665 5175 / 5175 4650 / 6550 2300 / 2300 Balance 1332.692 / 1332.692 -3467.462 / -3467.462 -2688.726 / -4588.726 - 2154.366 / -2154.366 Weight 81.7 kg 83.7 kg 77 kg Daily Fluid Goal:: even GI Nutrition: Nutrition - ok for diet Acute liver failure - suspect congestive hepatopathy - improving - continue to trend LFT's daily - hepatitis panel and HIV negative - will restart prn acetaminophen - holding atorvastatin Date of Last Bowel Movement: 12/31/21 Infectious Disease: Pneumonia - can stop Zosyn today - procalcitonin negative - MRSA nares negative Hematologic: No acute concerns Neurologic: Pain - restarted acetaminophen today Endocrine: No acute concerns Lines: PIV Atkins Left IJ CVC Prophylaxis: heparin sub q home omeprazole Code Status: Resuscitation Status Full Code Subjective Critical and life-threatening events over the past 24 hours: Chriss has been doing better. He is now on room air. He was able to come off the dobutamine but was restarted on it overnight due to hypotension. This morning again he is hypotensive after it being stopped and so I restarted it again at 2.5. Although not being actively diuresed he is negative 2.5L. We will give him 250cc of LR and advance his diet to see if this helps. He complains of pain over his entire body and states that his sciatica is very bothersome but he cannot take gabapentin as he tried to overdose on it previously. Exam Narrative Exam Narrative: POCUS 12/28/21: All cardiac views were well visualized. EF significantly reduced: EF 20% approximately. IVC is large with no respiratory variation. There is scant ascites around the liver. No other free fluid. No pleural effusions. No significant B-lines anteriorly. Large IJ on left. Gen: NAD, intubated and sedated HENT: PERRL Chest: No respiratory distress, normal appearance of chest, no crackles or wheezing appreciated Heart: regular rate and rhythym, no murmurs, rubs or gallops Abdomen: Non-distended, soft, non tender Extremities: No clubbing, edema, improved warmth of extremities. No cyanosis. Neuro: non-focal, AAO x3 Psych: cooperative, pleasant Most Recent VS/Results Last Vital Signs Temp 36.6 C 12/31/21 04:00 Pulse 85 12/31/21 07:24 Resp 15 12/31/21 07:24 BP 111/60 12/31/21 06:31 Pulse Ox 91 L 12/31/21 07:24 Laboratory Results - last 24 hr 12/29/21 12/29/21 12/31/21 06:00 06:00 05:45 WBC RBC Hgb Hct MCV MCH MCHC RDW Plt Count MPV Immature Gran % Neutrophils % Lymphocytes % Monocytes % Eosinophils % Basophils % Nucleated RBC % Absolute Neutrophils Absolute Lymphocytes Absolute Monocytes Absolute Eosinophils Absolute Basophils Sodium 137 Potassium 2.9 L Chloride 95 L Carbon Dioxide 27.0 Anion Gap 15.0 H BUN 65 H Creatinine 3.9 H* Estimated GFR/1.73 m2 15.96 Glucose 74 Calcium 7.8 L Total Bilirubin 1.9 H AST 670 H ALT 1153 H Alkaline Phosphatase 140 H Total Protein 5.9 L Albumin 2.4 L Hepatitis A IgM Ab Negative Hep Bs Antigen Negative Hep B Core Total Ab Negative Hepatitis C Antibody Negative HIV 1&2 Ag/Ab, 4th Gen Negative 12/31/21 05:45 WBC 16.08 H RBC 4.69 Hgb 13.1 L Hct 39.4 L MCV 84 MCH 27.9 MCHC 33.2 RDW 14.8 H Plt Count 198 MPV 11.1 H Immature Gran % 0.9 Neutrophils % 75.5 Lymphocytes % 13.9 Monocytes % 8.9 Eosinophils % 0.6 Basophils % 0.2 Nucleated RBC % 0.0 Absolute Neutrophils 12.14 H Absolute Lymphocytes 2.24 Absolute Monocytes 1.43 H Absolute Eosinophils 0.10 Absolute Basophils 0.03 Sodium Potassium Chloride Carbon Dioxide Anion Gap BUN Creatinine Estimated GFR/1.73 m2 Glucose Calcium Total Bilirubin AST ALT Alkaline Phosphatase Total Protein Albumin Hepatitis A IgM Ab Hep Bs Antigen Hep B Core Total Ab Hepatitis C Antibody HIV 1&2 Ag/Ab, 4th Gen Review of Systems All systems reviewed & are unremarkable except as noted in HPI and below Time spent with patient Time spent in Critical Care: 40 Time spent in Critical care included: Chart review, Documenting critically ill care, Time at immediate bedside and Discussing critically ill care with other medical staff Multi-Disciplinary Checklist Lines/Tubes CENTRAL LINE: yes, Central Line Day#: 3 Note: plan for PICC today in order to D/C CVC ARTERIAL LINE: no ATKINS: yes, Atkins Day#: 3 ENDOTRACHEAL TUBE: no ICU Maintenance GLUCOSE 140-180mg/dL: yes NUTRITION AT GOAL: no, Reason/Intervention: advancing diet to regular today PRESSURE ULCER: no RESTRAINTS: no ANTIBIOTICS(if yes, consider Stewardship): Yes Social Issues FAMILY UPDATED: yes PT/OT: no, Reason/Intervention: patient in custody CODE STATUS: Full Prophylaxis DVT PROPHYLAXIS: yes GI PROPHYLAXIS: yes, Indication: on home PPI
[2021-12-31] MEDS: Heparin 5,000 UNITS/ML VIAL 5000 UNITS SC ×2 (08:32→16:45)
[2021-12-31] MEDS: Omeprazole 20 MG CAPCR PO ×2 (08:32→20:34)
[2021-12-31] MEDS: FLUoxetine 20 MG CAP 60 MG PO (08:32)
[2021-12-31] MEDS: Lactated Ringers 250 ML IV (08:33)
[2021-12-31] MEDS: POTASSIUM CHLORIDE 10 MEQ/100 ML BAG 200 MEQ IVPB ×3 (08:39→10:02)
[2021-12-31] MEDS: Potassium Chloride 20 MEQ TABCR PO ×2 (08:39→20:33)
--- NOTE | 2021-12-31 08:43 | CMPROGNOTE_ITS ---
- If Service Date Differs Date of service: 12/31/21 Time of Service: 08:43 Care Management Progress Note S/O: Chriss is being closely monitored and treated. Hospitalist is following, Pulmonology is consulted. Per Annemarie Mckeon at [facility], if Chriss requires transfer to a tertiary hospital for a pacemaker, DOC prefers he transfer to [facility] or [facility]. Disposition will be dependent on patients goals of care and will be discussed with [facility] prior to transfer. Palliative Care is consulted. When medically ready a nticipate, Chriss will need to transfer to a Correctional Facility that can accommodate the complexity of his medical needs. Per Annemarie Mckeon from [facility] there is no formal plan to release patient from [facility] custody. A: 56 year old male admitted to [facility] on 12/28/21 for Respiratory Failure P: Chriss continues to be closely monitored and treated in the ICU. Disposition will require coordination with [facility], where he is incarcerated. [facility] requests transfer to [facility] or [facility], if medically necessary. CM continues to follow. Annemarie Mckeon/[facility]:
--- NOTE | 2021-12-31 08:43 | PDOC.CMPRO ---
- If Service Date Differs Date of service: 12/31/21 Time of Service: 08:43 Care Management Progress Note S/O: Chriss is being closely monitored and treated. Hospitalist is following, Pulmonology is consulted. Per Annemarie Mckeon at [facility], if Chriss requires transfer to a tertiary hospital for a pacemaker, DOC prefers he transfer to [facility] or [facility]. Disposition will be dependent on patients goals of care and will be discussed with [facility] prior to transfer. Palliative Care is consulted. When medically ready anticipate, Chriss will need to transfer to a Correctional Facility that can accommodate the complexity of his medical needs. Per Annemarie Mckeon from [facility] there is no formal plan to release patient from [facility] custody. A: 56 year old male admitted to [facility] on 12/28/21 for Respiratory Failure P: Chriss continues to be closely monitored and treated in the ICU. Disposition will require coordination with [facility], where he is incarcerated. [facility] requests transfer to [facility] or [facility], if medically necessary. CM continues to follow. Annemarie Mckeon/[facility]:
--- NOTE | 2021-12-31 09:51 | W.NUTRFU ---
Date of service: 12/31/21 Time of Service: 09:51 Nutrition Note NOTE: Chriss was extubated yesterday and started on clear liquid diet - tolerating. Tube feeding stopped at extubation. Advanced to regular diet today at breakfast. Will continue to follow. Time Spent in Nutritional Counseling and Treatment: 0
--- NOTE | 2021-12-31 14:00 | W.PM.PROGNOT ---
Date of Service Date of service: 12/31/21 Time of Service: 14:01 Assessment and Plan Assessment and plan (1) Pneumonia: Status: Acute Assessment and plan: Questionable dx. Small infiltrate possibly seen on CXR. Procal 0.1 His WBC count now decreasing. VBG lactate decreased to 2.0 Per pulmonary medicine, OK to d/c Zosyn . (2) Acute renal failure: Status: Acute Assessment and plan: Secondary to cardiogenic shock. Creatinine at baseline is 1.1. Now 2.2 > 3.1>4.0>3.9 Elevation could be secondary to diuresis. stopped lasix. Encourage fluid intake. Gave 250ml LR this AM. (3) Lactic acidosis: Status: Acute Assessment and plan: Treating PNA and cardiogenic shock. Lactate improved to 2. VBG pH today of 7.44. (4) Cardiogenic shock: Status: Acute Assessment and plan: Know CAD and global hypokinesis; Echocardiogram and NM perfusion scanning at recent admission Dobutamine has been stopped intermittently but then restarted when MAP dropped below 60. Will continue with dobutamine to keep MAP > 60 with trial periods of stopping it. If unable to d/c Dobutamine, will consult with [facility] and possibly transfer. Restart Entresto and metoprolol when BP allows. (5) Respiratory failure with hypoxia: Status: Acute Assessment and plan: Extubated and placed temporarily on BiPAP to avoid risk of flash pulmonary edema. Stable with O2 saturations in the low 90's. (6) Discharge planning issues: Status: Acute Assessment and plan: Pt is a full code. It was not true that he was to be released from care home custoday as the daughter related. He case was to go before a plaster die maker today. (7) CHF (congestive heart failure): Status: Chronic Assessment and plan: Est EF of 20-25%. Currently on dobutamine. See above. Diuresed well with lasix and continues to have high urine output off diuretic and w/o excessive oral intake. Routinely is on Entresto and metoprolol. Hold d/t hypotension. (8) Acute liver disease: Status: Acute Assessment and plan: Bilirubin improved but LFTs increased significantly but now continue on the decline. D/T cardiogenic shock and likely hepatic congestion most likely. Viral hepatitis panel and HIV pending. Avoid hepatotoxins. Monitor. Subjective Subjective Patient reports: no new complaints, tolerating a regular diet (Appetite diminished) and afebrile; denies diarrhea, nausea or vomiting Exam Narrative Exam Narrative: Pt now extubated. Const General: cooperative and no acute distress Nutritional Appearance: overweight Orientation: alert, oriented to person and oriented to place Eyes General: appearance normal, both eyes and all related structures Neck Neck: full ROM and no JVD Resp Effort & Inspection: normal respiratory effort and able to speak in complete sentences Auscultation: clear to auscultation bilaterally Cardio Rate: regular rate Rhythm: regular rhythm Heart Sounds: S1 normal and S2 normal GI Inspection: non-distended Palpation: soft and nontender Extrem General: normal to inspection, no pedal edema and no cyanosis Psych Appearance: grossly normal Speech and Movement: speech clear Affect: blunted Objective Last Vital Signs Temp 37.4 C 12/31/21 12:00 Pulse 88 12/31/21 13:01 Resp 20 12/31/21 13:01 BP 95/55 L 12/31/21 13:01 Pulse Ox 90 L 12/31/21 12:00 Laboratory Results - last 24 hr 12/31/21 12/31/21 05:45 05:45 WBC 16.08 H RBC 4.69 Hgb 13.1 L Hct 39.4 L MCV 84 MCH 27.9 MCHC 33.2 RDW 14.8 H Plt Count 198 MPV 11.1 H Immature Gran % 0.9 Neutrophils % 75.5 Lymphocytes % 13.9 Monocytes % 8.9 Eosinophils % 0.6 Basophils % 0.2 Nucleated RBC % 0.0 Absolute Neutrophils 12.14 H Absolute Lymphocytes 2.24 Absolute Monocytes 1.43 H Absolute Eosinophils 0.10 Absolute Basophils 0.03 Sodium 137 Potassium 2.9 L Chloride 95 L Carbon Dioxide 27.0 Anion Gap 15.0 H BUN 65 H Creatinine 3.9 H* Estimated GFR/1.73 m2 15.96 Glucose 74 Calcium 7.8 L Total Bilirubin 1.9 H AST 670 H ALT 1153 H Alkaline Phosphatase 140 H Total Protein 5.9 L Albumin 2.4 L
[2021-12-31] MEDS: Metoprolol 5 MG/5 ML VIAL 2.5 MG IVP (18:25)
[2021-12-31] MEDS: Budesonide/Formoterol 160/4.5 6 GM 60 PUFF INH IH (20:33)
[2021-12-31] MEDS: Acetaminophen 325 MG TAB 650 MG PO (20:34)
[2021-12-31] MEDS: Melatonin 3 MG TAB 6 MG PO (20:38)
[2022-01-01] VITALS (71 sets, daily range): BP systolic 86–118; BP diastolic 51–75; PULSE 76–115; RESP 16–34; TEMP 36.3–37; O2SAT 73–96
[2022-01-01] MEDS: Metoprolol 5 MG/5 ML VIAL 2.5 MG IVP ×4 (00:32→18:35)
[2022-01-01] MEDS: Heparin 5,000 UNITS/ML VIAL 5000 UNITS SC ×3 (00:33→15:54)
[2022-01-01] MEDS: Normal Saline Flush 10 ML SYR IVP ×4 (00:34→18:36)
[2022-01-01 05:56] LABS: Abs Immature Grans 0.14 10^3/uL (0.0-0.06); Absolute Basophil Count 0.02 10^3/uL (0.0-0.2); Absolute Monocyte Count 1.34 10^3/uL (0.1-0.8); Basophils % 0.2; Eosinophils % 3.7; HCT 38.4 % (40.0-50.0); HGB 12.7 g/dL (13.5-17.5); Immature Grans % 1.1; Lymphocytes % 14.6; MCH 28.2 pg (27.0-33.0); MCHC 33.1 % (32.0-36.0); MCV 85 fL (80-95); MPV 11.5 fL (8.0-11.0); Monocytes % 10.9; Neutrophils % 69.5; Platelet Count 208 10^3/uL (130-400); RBC 4.51 10^6/uL (4.36-5.78); RDW 14.7 % (11.8-14.1); RDW-SD 45.8 fL
[2022-01-01 05:57] LABS: Absolute Eosinophil Count 0.46 10^3/uL (0.0-0.7); Absolute Neutrophil Count 8.55 10^3/uL (1.2-6.7)
[2022-01-01 06:15] LABS: AST 256 U/L (15-37); Albumin 2.4 g/dL (3.4-5.0); Alkaline Phosphatase 148 U/L (46-116); Anion Gap 13.4 mmol/L (3-11); BUN 58 mg/dL (7-18); Bilirubin, Total 1.8 mg/dL (0.2-1.0); CO2 25.6 mmol/L (21.0-32.0); CREATININE 3.5 mg/dL (0.70-1.30); Calcium 7.9 mg/dL (8.5-10.1); Chloride 98 mmol/L (98-107); Estimated GFR 18.08 (mL/min/1.73m2); Glucose 104 mg/dL (74-106); Magnesium 1.9 mg/dL (1.8-2.4); Potassium 3.4 mmol/L (3.5-5.1); Sodium 137 mmol/L (136-145); Total Protein 6.1 g/dL (6.4-8.2)
[2022-01-01 06:28] LABS: ALT 1000 U/L (16-63)
[2022-01-01] MEDS: Omeprazole 20 MG CAPCR PO ×3 (06:35→20:23)
[2022-01-01] MEDS: Budesonide/Formoterol 160/4.5 6 GM 60 PUFF INH IH ×2 (07:58→20:23)
--- NOTE | 2022-01-01 08:01 | NUR.NOTE ---
Patient is set up with his breakfast. Nursing Note:
--- NOTE | 2022-01-01 08:24 | NUR.NOTE ---
Distance Education Teacher is made aware of need for ICU crash cart to be changed out because one lock in missing on same.Nursing Note:
[2022-01-01] MEDS: FLUoxetine 20 MG CAP 60 MG PO (08:30)
--- NOTE | 2022-01-01 09:21 | NUR.NOTE ---
Patient given a cup of bárbara naomi on ice per his request.Nursing Note:
[2022-01-01] MEDS: Potassium Chloride 20 MEQ TABCR PO ×3 (09:30→20:23)
--- NOTE | 2022-01-01 09:30 | NUR.NOTE ---
Patient set up with a fan in his room.Nursing Note:
--- NOTE | 2022-01-01 09:46 | NUR.NOTE ---
Nurse packaging supervisor changes out crash cart draw. Crash cart is now fully locked and stocked.Nursing Note:
--- NOTE | 2022-01-01 10:58 | NUR.NOTE ---
Patient is resting in bed comfortably.Nursing Note:
--- NOTE | 2022-01-01 13:02 | NUR.NOTE ---
RN leelee patient. Patient appreciative for wilfridve.Nursing Note:
--- NOTE | 2022-01-01 14:27 | W.PM.PROGNOT ---
Date of Service Date of service: 01/01/22 Time of Service: 08:15 Assessment and Plan Assessment and plan (1) Pneumonia: Status: Acute Assessment and plan: Questionable dx. Small infiltrate possibly seen on CXR. Procal 0.1 His WBC count now decreasing. VBG lactate decreased to 2.0 Zosyn has been d/c'd. (2) Acute renal failure: Status: Acute Assessment and plan: Secondary to cardiogenic shock. Improving. Creatinine at baseline is 1.1. Now 2.2 > 3.1>4.0>3.9 >3.5. stopped lasix. Encourage fluid intake. Gave 250ml LR this AM. (3) Lactic acidosis: Status: Acute Assessment and plan: Treating PNA and cardiogenic shock. Lactate improved to 2. VBG pH today of 7.44. (4) Cardiogenic shock: Status: Acute Assessment and plan: Know CAD and global hypokinesis; Echocardiogram and NM perfusion scanning at recent admission Dobutamine has been stopped intermittently but then restarted when MAP dropped below 60. Will continue with dobutamine to keep MAP > 60 with trial periods of stopping it. He went yesterday and last PM w/o dobutamine. metoprolol 2.5mg IV Q6 hours initiated yesterday; BP not adversely affected. Will consider oral dosing of metoprolol tomorrow. (5) Respiratory failure with hypoxia: Status: Acute Assessment and plan: Extubated and placed temporarily on BiPAP to avoid risk of flash pulmonary edema. Stable with O2 saturations in the low 90's. (6) Discharge planning issues: Status: Acute Assessment and plan: Pt is a full code. If he stabilizes and doesn't require d/c to tertiary care center, then d/w [facility] facility about being transferred there. (7) CHF (congestive heart failure): Status: Chronic Assessment and plan: Est EF of 20-25%. Currently on dobutamine. See above. Diuresed well with lasix and continues to have high urine output off diuretic and w/o excessive oral intake. Cont holding Entresto but restart metoprolol at low dose of 2.5mg IV Q6H; tolerating. (8) Acute liver disease: Status: Acute Assessment and plan: Bilirubin improved but LFTs increased significantly but now continue on the decline. D/T cardiogenic shock and likely hepatic congestion most likely. Viral hepatitis panel and HIV negative. Avoid hepatotoxins. Monitor. Subjective Subjective Patient reports: tolerating a regular diet and afebrile; denies nausea, vomiting or shortness of breath Interval history since last seen: C/O of insomnia; chronic Exam Narrative Exam Narrative: Pt now extubated. Const General: cooperative and no acute distress Nutritional Appearance: overweight Orientation: alert, oriented to person and oriented to place Eyes General: appearance normal, both eyes and all related structures Neck Neck: full ROM and no JVD Resp Effort & Inspection: normal respiratory effort and able to speak in complete sentences Auscultation: clear to auscultation bilaterally Cardio Rate: regular rate Rhythm: regular rhythm Heart Sounds: S1 normal and S2 normal GI Inspection: non-distended Palpation: soft and nontender Extrem General: normal to inspection, no pedal edema and no cyanosis Psych Appearance: grossly normal Speech and Movement: speech clear Affect: blunted Objective Last Vital Signs Temp 36.3 C L 01/01/22 12:25 Pulse 89 01/01/22 13:00 Resp 25 H 01/01/22 12:25 BP 98/70 L 01/01/22 13:00 Pulse Ox 96 01/01/22 12:25 Laboratory Results - last 24 hr 01/01/22 01/01/22 05:35 05:35 WBC 12.30 H RBC 4.51 Hgb 12.7 L Hct 38.4 L MCV 85 MCH 28.2 MCHC 33.1 RDW 14.7 H Plt Count 208 MPV 11.5 H Immature Gran % 1.1 Neutrophils % 69.5 Lymphocytes % 14.6 Monocytes % 10.9 Eosinophils % 3.7 Basophils % 0.2 Nucleated RBC % 0.0 Absolute Neutrophils 8.55 H Absolute Lymphocytes 1.80 Absolute Monocytes 1.34 H Absolute Eosinophils 0.46 Absolute Basophils 0.02 Sodium 137 Potassium 3.4 L Chloride 98 Carbon Dioxide 25.6 Anion Gap 13.4 H BUN 58 H Creatinine 3.5 H Estimated GFR/1.73 m2 18.08 Glucose 104 Calcium 7.9 L Magnesium 1.9 Total Bilirubin 1.8 H AST 256 H ALT 1000 H Alkaline Phosphatase 148 H Total Protein 6.1 L Albumin 2.4 L
[2022-01-01] MEDS: Acetaminophen 325 MG TAB 650 MG PO ×2 (15:46→20:23)
[2022-01-02] VITALS (23 sets, daily range): BP systolic 106–121; BP diastolic 67–91; PULSE 82–99; RESP 17–31; TEMP 36.3–37.3; O2SAT 89–97
[2022-01-02] MEDS: Heparin 5,000 UNITS/ML VIAL 5000 UNITS SC ×4 (00:05→23:32)
[2022-01-02] MEDS: Metoprolol 5 MG/5 ML VIAL 2.5 MG IVP ×2 (00:05→05:41)
[2022-01-02] MEDS: Normal Saline Flush 10 ML SYR IVP ×4 (05:43→20:56)
[2022-01-02 05:53] LABS: Abs Immature Grans 0.25 10^3/uL (0.0-0.06); Absolute Eosinophil Count 0.64 10^3/uL (0.0-0.7); Absolute Lymphocyte Count 1.67 10^3/uL (1.2-3.4); Basophils % 0.1; Eosinophils % 4.7; HGB 12.9 g/dL (13.5-17.5); Immature Grans % 1.8; Lymphocytes % 12.3; MCH 27.7 pg (27.0-33.0); MCHC 32.3 % (32.0-36.0); MCV 86 fL (80-95); MPV 11.1 fL (8.0-11.0); Neutrophils % 69.1; Platelet Count 220 10^3/uL (130-400); RBC 4.65 10^6/uL (4.36-5.78); RDW 14.7 % (11.8-14.1); RDW-SD 46.5 fL; WBC 13.55 10^3/uL (4.4-10.8)
[2022-01-02 06:10] LABS: Absolute Basophil Count 0.01 10^3/uL (0.0-0.2); Absolute Monocyte Count 1.63 10^3/uL (0.1-0.8); Absolute Neutrophil Count 9.36 10^3/uL (1.2-6.7)
[2022-01-02 06:12] LABS: ALT 718 U/L (16-63); AST 127 U/L (15-37); Albumin 2.6 g/dL (3.4-5.0); Alkaline Phosphatase 155 U/L (46-116); Anion Gap 10.3 mmol/L (3-11); BUN 46 mg/dL (7-18); Bilirubin, Total 1.4 mg/dL (0.2-1.0); CO2 25.7 mmol/L (21.0-32.0); CREATININE 2.8 mg/dL (0.70-1.30); Calcium 8.4 mg/dL (8.5-10.1); Chloride 100 mmol/L (98-107); Estimated GFR 23.39 (mL/min/1.73m2); Glucose 109 mg/dL (74-106); Sodium 136 mmol/L (136-145); Total Protein 6.6 g/dL (6.4-8.2)
[2022-01-02 06:14] LABS: Diff Comment Agrees w/ Instrument
[2022-01-02] MEDS: Potassium Chloride 20 MEQ TABCR PO ×3 (07:34→20:55)
[2022-01-02] MEDS: FLUoxetine 20 MG CAP 60 MG PO (07:34)
[2022-01-02] MEDS: Omeprazole 20 MG CAPCR PO ×3 (07:34→20:54)
[2022-01-02] MEDS: Metoprolol 25 MG TAB PO ×2 (08:23→20:54)
[2022-01-02] MEDS: Budesonide/Formoterol 160/4.5 6 GM 60 PUFF INH IH ×2 (09:02→20:56)
[2022-01-02] MEDS: Albuterol 2.5 MG/3 ML INH SOLN VIAL UPD ×2 (10:22→16:28)
--- NOTE | 2022-01-02 13:22 | NUR.NOTE ---
Nursing Note: Patient was transferred from ICU. Patient transitioned smoothly. Report was received from [place] at 1:23. Vital signs are BP: 114/85, RR 24, 02 94% RA, HR 91, and temp of 36.3. Patient is admitted for respiratory failure. Patient ambulates 1 person assist. From the local correction and is cuffed to the bed.
[2022-01-02] MEDS: Acetaminophen 325 MG TAB 650 MG PO ×2 (16:13→23:31)
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
[2022-01-02] MEDS: busPIRone 5 MG TAB 10 MG PO (20:54)
[2022-01-02] MEDS: Lidocaine 5% Patch 2 PATCH TP (20:55)
[2022-01-03] VITALS (27 sets, daily range): BP systolic 110–120; BP diastolic 78–90; PULSE 63–113; RESP 7–21; TEMP 35.6–37; O2SAT 94–98
[2022-01-03 05:56] LABS: HCT 41.3 % (40.0-50.0); HGB 13.5 g/dL (13.5-17.5); MCH 28.2 pg (27.0-33.0); MCHC 32.7 % (32.0-36.0); MCV 86 fL (80-95); MPV 11.2 fL (8.0-11.0); Platelet Count 251 10^3/uL (130-400); RBC 4.79 10^6/uL (4.36-5.78); RDW 15.1 % (11.8-14.1); RDW-SD 47.2 fL; WBC 14.04 10^3/uL (4.4-10.8)
[2022-01-03 06:12] LABS: ALT 523 U/L (16-63); AST 73 U/L (15-37); Albumin 2.6 g/dL (3.4-5.0); Alkaline Phosphatase 144 U/L (46-116); Anion Gap 9.9 mmol/L (3-11); BUN 42 mg/dL (7-18); CO2 24.1 mmol/L (21.0-32.0); CREATININE 2.8 mg/dL (0.70-1.30); Calcium 8.8 mg/dL (8.5-10.1); Chloride 101 mmol/L (98-107); Estimated GFR 23.39 (mL/min/1.73m2); Glucose 123 mg/dL (74-106); Potassium 4.5 mmol/L (3.5-5.1); Sodium 135 mmol/L (136-145); Total Protein 6.8 g/dL (6.4-8.2)
[2022-01-03] MEDS: Budesonide/Formoterol 160/4.5 6 GM 60 PUFF INH IH ×2 (09:07→19:29)
[2022-01-03] MEDS: Potassium Chloride 20 MEQ TABCR PO ×3 (09:19→19:30)
[2022-01-03] MEDS: Heparin 5,000 UNITS/ML VIAL 5000 UNITS SC ×3 (09:19→23:04)
[2022-01-03] MEDS: Metoprolol 25 MG TAB PO ×2 (09:20→15:30)
[2022-01-03] MEDS: busPIRone 5 MG TAB 10 MG PO ×3 (09:20→19:30)
[2022-01-03] MEDS: Omeprazole 20 MG CAPCR PO ×3 (09:20→19:30)
[2022-01-03] MEDS: Acetaminophen 325 MG TAB 650 MG PO ×3 (09:20→23:03)
[2022-01-03] MEDS: FLUoxetine 20 MG CAP 60 MG PO (09:21)
[2022-01-03] MEDS: Patch Removal 2 EACH TP (09:30)
[2022-01-03] MEDS: Normal Saline Flush 10 ML SYR IVP ×3 (09:57→19:31)
--- NOTE | 2022-01-03 10:58 | NUR.NOTE ---
At approximately 1055 on 01/03/22 this PROFESSOR OF VIOLIN spoke to Chhaya Mckeon (daughter of pt and on HIPAA). Chhaya was asking if pt was being transferred to [facility] [place] or [facility] for placement of pacemaker. At this time, pt does not have a plan. Chhaya was informed morning meeting with the provider was happening soon which is when this would be discussed. Chhaya asked if the provider could give her a call back with an update after morning meeting.
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
--- NOTE | 2022-01-03 12:38 | NUR.NOTE ---
At this time, pt and correction officers notified of call made earlier to Chhaya (pt's daughter and on HIPAA). Pt's and officers notified that Chhaya wants an update from provider. At this time, correction officers have allowed Chhaya's request. This EMOTIONAL DISABILITIES TEACHER notified the charge nurse to notify the provider to give Chhaya an update.
--- NOTE | 2022-01-03 13:38 | NUR.NOTE ---
pt sister came to visit, visit was approved by Selin.
--- NOTE | 2022-01-03 15:25 | CMPROGNOTE_ITS ---
- If Service Date Differs Date of service: 01/03/22 Time of Service: 15:25 Care Management Progress Note S/O: Chriss is being closely monitored and treated. He is 96% on RA, Palliative Provider met with Chriss this afternoon to discuss goals of care. When medically ready, [facility] He may then transfer to a [facility], if needed. Per Annemarie Mckeon at [facility], if Chriss requires transfer to a tertiary hospital for a pacemaker, DOC prefers he transfer to [facility] or [facility]. Per Annemarie Mckeon from [facility] there is no formal plan to release patient from [facility] custody. A: 56 year old male admitted to [facility] on 12/28/21 for Respiratory Failure P: Chriss continues to be closely monitored and treated in the ICU. Disposition will require coordination with [facility], where [facility] is [facility]. [facility] requests transfer to [facility] or [facility], if medically necessary. CM continues to follow. Annemarie Mckeon/[facility]:
--- NOTE | 2022-01-03 15:25 | PDOC.CMPRO ---
- If Service Date Differs Date of service: 01/03/22 Time of Service: 15:25 Care Management Progress Note S/O: Chriss is being closely monitored and treated. He is 96% on RA, Palliative Provider met with Chriss this afternoon to discuss goals of care. When medically ready, Chriss will discharge to [facility]. He may then transfer to a [facility] Facility, if needed. Per Annemarie Mckeon at [facility], if Chriss requires transfer to a tertiary hospital for a pacemaker, DOC prefers he transfer to [facility] [[email or web address] or [facility]. Per Annemarie Mckeon from [facility] there is no formal plan to release patient from [facility] custody. A: 56 year old male admitted to [facility] on 12/28/21 for Respiratory Failure P: Chriss continues to be closely monitored and treated in the ICU. Disposition will require coordination with [facility], where he is incarcerated. [facility] requests transfer to [facility] [[email or web address] or [facility], if medically necessary. CM continues to follow. Annemarie Mckeon/[facility]:
[2022-01-03] MEDS: Albuterol 2.5 MG/3 ML INH SOLN VIAL UPD (16:11)
[2022-01-03] MEDS: Ondansetron 4 MG/2 ML VIAL IVP (16:43)
[2022-01-03] MEDS: LORazepam 1 MG TAB PO ×2 (18:10→23:03)
[2022-01-03] MEDS: Metoprolol 12.5 MG TAB PO (19:30)
[2022-01-03] MEDS: Lidocaine 5% Patch 2 PATCH TP (19:30)
--- NOTE | 2022-01-03 21:04 | PCNE_ITS ---
Date of service: 01/03/22 Time of Service: 16:00 History of Present Illness Narrative: Mr. Nair is a 56 y/o M currently inpatient at [facility] 2/2 acute resp failure; PMHx sig for CHF (EF <20%), CAD, COPD Hospital course: presented to [facility] ED 12/28 w/CC chest tightness and SOB, repeat EF 20-30% similar to recent echo, did not tolerate BIPAP, placed on ventilation and stabilized; transferred to ICU for ongoing management; in acute renal failure, lactic acidosis, cardiogenic shock; pulmonary following; hP and lactace improving w/dobutamine, extubation to CPAP on 12/30; considering transfer to tertiary care center for advanced heart failure care for pacemaker/AICD evaluation, no beds available; staff report increased anxiety pt in chronic back pain, over 20 years, w/back/neck pain r/t fusion, arthritis, DJD, h/o fracture, herniated disc; LLE sciatica w/burning sensation to feet; previously iADLs; increased anxiety 2/2 several social and health concerns, feels symptomatic w/weakness, abd discomfort, SOB; family support w/daughter Chhaya, sister Love and son Dylan; would prefer [facility] to be sister/daughter, preference to complete paperwork in family meeting at f/u; 3 grandchildren; preference to remain FULL code; would not want to kept alive in vegetative state, only if could recover, at this time would want a AICD device/pacemaker; Korey is a person incarcerated at [facility], will require transfer to facility to accommodate for increased medical needs Assessment and Plan Assessment and plan (1) Cardiogenic shock: Status: Acute Assessment and plan: patient presented in acute shock w/ elevated lactate, KHALIF ( creatinine 4.0>2.8)? and shock liver; transaminases are still elevated but are trending down (AST 6300>73, ALT 3300 > 523, total bilirubin 2.7>1.0), at this point he continues to improve. He has been put on lopressor 25 mg bid; I was going to titrate to qid but will decrease the dose to 12.5 mg qid and titrate gradually over next 48h. I will add Jardiance to his regimen and hold on restarting his Entresto until his creatinine comes down a little more (hopefully under 2.5). he will need to be discharge on some diuretics, probably low dose torsemide along w/ low dose spironolactone. He needs follow up w/ cardiology and I spoke w/ Dr. Brent Coronado from [facility] who will try to expedite getting this patient in w/ EP for AICD placement. (2) CHF (congestive heart failure): Status: Chronic Assessment and plan: needs outpatient f/u w/cardiology, see above Qualifiers: Heart failure type: combined systolic and diastolic Heart failure chronicity: acute on chronic Qualified Code(s): I50.43 - Acute on chronic combined systolic (congestive) and diastolic (congestive) heart failure (3) DJD (degenerative joint disease), lumbar: Status: Acute Assessment and plan: PT consult (4) Anxiety: Status: Chronic Assessment and plan: consider adding Ativan PRN for acute anxiety (5) Full code status: Status: Acute Assessment and plan: reviewed, will continue to review and complete paperwork at f/u on Mon (6) Palliative care encounter: Status: Acute Assessment and plan: continue to follow throughout inpatient stay f/u Wed, contacted daughter and sister, to join via telephone or inperson as able Review of Systems Narrative: see HPI PFSH All Active Problems (Updated 01/03/22 @ 21:26 by Alondra Lamb NP) Palliative care encounter (Acute) Full code status (Acute) Anxiety (Chronic) COPD suggested by initial evaluation (Acute) Acute respiratory failure with hypoxia (Acute) Acute liver disease (Acute) Pneumonia (Acute) Acute renal failure (Acute) Acute liver failure (Acute) Hyponatremia (Acute) High anion gap metabolic acidosis (Acute) Cardiogenic shock (Acute) COPD (chronic obstructive pulmonary disease) (Chronic) Discharge planning issues (Acute) DVT prophylaxis (Acute) Thoracic lymphadenopathy (Chronic) Scrotal pain (Acute) CHF (congestive heart failure) (Chronic) CAD (coronary artery disease), [place] coronary artery (Chronic) Anemia (Chronic) Status post lumbar laminectomy (Acute) DJD (degenerative joint disease), lumbar (Acute) Mediastinal adenopathy (Acute) Sarcoid (Chronic) Chronic GERD (Acute) Elevated brain natriuretic peptide (BNP) level (Acute) Enlarged heart (Acute) Medical History Acute epididymitis Acute on chronic systolic CHF (congestive heart failure) Acute respiratory failure Atypical chest pain Bilateral pleural effusion COPD suggested by initial evaluation Pleural effusion, right Scrotal pain Shortness of breath Social History Smoking/Tobacco Use Status: Former Tobacco Use Smoking risk assessment performed?: Yes Alcohol Intake: former Substance use type: does not use Do you feel safe at home: Yes Do you feel safe in your relationship?: Yes Exam Narrative Exam Narrative: lower extremety restrained to bed Const General: cooperative, comfortable, no acute distress, anxious (at beginning of visit, w/dyspnea, resolved) and ill appearing Orientation: alert, awake and oriented x3 HENMT Head: normal to inspection, normocephalic and atraumatic Ears: hearing grossly normal bilaterally Resp Effort & Inspection: normal respiratory effort, able to speak in complete sentences, no audible wheezes and no cough Skin General skin exam: no rashes or lesions noted Neuro General: patient alert, patient awake and patient oriented x3 Speech: speech normal Psych Appearance: grossly normal Mood: congruent mood and anxious mood (when discussing uncertainty, resolves w/redirection) Insight: fair Judgment: fair Results Last Vital Signs Temp 97.3 F L 01/03/22 19:39 Pulse 91 H 01/03/22 19:39 Resp 16 01/03/22 19:39 BP 110/78 01/03/22 19:39 Pulse Ox 98 01/03/22 19:39 Labs Result diagrams: 01/03/22 05:30 01/03/22 05:30 Labs: Laboratory Results - last 24 hr 01/03/22 01/03/22 05:30 05:30 WBC 14.04 H RBC 4.79 Hgb 13.5 Hct 41.3 MCV 86 MCH 28.2 MCHC 32.7 RDW 15.1 H Plt Count 251 MPV 11.2 H Sodium 135 L Potassium 4.5 Chloride 101 Carbon Dioxide 24.1 Anion Gap 9.9 BUN 42 H Creatinine 2.8 H Estimated GFR/1.73 m2 23.39 Glucose 123 H Calcium 8.8 Total Bilirubin 1.0 AST 73 H ALT 523 H Alkaline Phosphatase 144 H Total Protein 6.8 Albumin 2.6 L
[2022-01-04] VITALS (42 sets, daily range): BP systolic 94–131; BP diastolic 30–94; PULSE 87–110; RESP 12–48; TEMP 34.8–36.9; O2SAT 88–100
[2022-01-04] MEDS: Budesonide/Formoterol 160/4.5 6 GM 60 PUFF INH IH (07:30)
[2022-01-04] MEDS: Normal Saline Flush 10 ML SYR IVP ×2 (07:42→11:59)
[2022-01-04] MEDS: Heparin 5,000 UNITS/ML VIAL 5000 UNITS SC (07:43)
[2022-01-04] MEDS: Acetaminophen 325 MG TAB 650 MG PO (07:44)
[2022-01-04] MEDS: Potassium Chloride 20 MEQ TABCR PO (07:45)
[2022-01-04] MEDS: FLUoxetine 20 MG CAP 60 MG PO (07:45)
[2022-01-04] MEDS: Metoprolol 12.5 MG TAB PO (07:45)
[2022-01-04] MEDS: busPIRone 5 MG TAB 10 MG PO (07:46)
[2022-01-04] MEDS: Omeprazole 20 MG CAPCR PO (07:46)
[2022-01-04] MEDS: Empaglifozin 10 MG TAB PO (07:46)
[2022-01-04] MEDS: Patch Removal 2 EACH TP (07:48)
[2022-01-04] MEDS: Ketamine 500 MG/5 ML VIAL 70 MG IV (09:09)
[2022-01-04] MEDS: Rocuronium 50 MG/5 ML SYR IV (09:09)
[2022-01-04] MEDS: Phenylephrine 800 MCG/10 ML SYR 400 MCG IV (09:10)
[2022-01-04] MEDS: Midazolam 10 MG/10 ML 2 MG IV (09:11)
[2022-01-04] MEDS: Normal Saline 1,000 ML 1000 ML IV (09:15)
--- NOTE | 2022-01-04 09:17 | DI.RAD_ITS ---
Exam(s) XR PORTABLE CHEST AP POST LINE EXAM: XR PORTABLE CHEST AP POST LINE CLINICAL HISTORY: s/p intubation. TECHNIQUE: 2D digital imaging was performed. COMPARISON: CR XR PORTABLE CHEST AP from 12/28/2021 FINDINGS: Single AP portable view. Chest leads and pads in place. Distal tip of left PICC line is at the SVC-RA junction. Distal tip o f the NG tube is in the stomach. The endotracheal tube is in the right mainstem bronchus and should be retracted to a position above t he nakita. Heart size normal. Mediastinum not widened. Improved right lower lobe infiltrate but there is still infiltrate in the basal segments of the left lower lobe. Also some increased right upper lobe markings in the suprahilar region. IMPRESSION: As above. The endotracheal tube requires repositioningto a level above the nakita. Report and recommendations called by myself to the ICU physician 01/04/2022 10:05 a.m. DATA REPOSITORY: RADIATION DOSE DELIVERED: All CT scans at this facility use at least one of these dose optimization techniques: automated exposure control; mA and/or kV adjustment per patient size (includes targeted e xams where dose is matched to clinical indication); or iterative reconstruction.
--- NOTE | 2022-01-04 09:53 | CMPROGNOTE_ITS ---
- If Service Date Differs Date of service: 01/04/22 Time of Service: 09:53 Care Management Progress Note S/O: Chriss was transferred to the ICU this morning and required intubation. CM updated Annemarie from [facility]. Anticipate, Chriss will transfer to tertiary hospital. CM will follow. Palliative Provider met with Chriss yesterday to discuss goals of care, he remains a full code. When medically ready, Chriss will discharge to [facility]. He may then transfer to a [facility], if needed. Per Annemarie Mckeon at [facility], if Chriss requires transfer to a tertiary hospital for a pacemaker, DOC prefers he transfer to [facility] or [facility] [place] [facility]. Per Annemarie Mckeon from [facility] there is no formal plan to release patient from [facility] custody. A: 56 year old male admitted to [facility] on 12/28/21 for Respiratory Failure P: Chriss continues to be closely monitored and treated in the ICU. Disposition will require coordination with [facility], where he is incarcerated. [facility] requests transfer to [facility] or [facility], if medically necessary. CM continues to follow. Annemarie Mckeon/[facility]:
--- NOTE | 2022-01-04 09:53 | PDOC.CMPRO ---
- If Service Date Differs Date of service: 01/04/22 Time of Service: 09:53 Care Management Progress Note S/O: Chriss was transferred to the ICU this morning and required intubation. CM updated Annemarie from [facility]. Anticipate, Chriss will transfer to tertiary hospital. CM will follow. Palliative Provider met with Chriss yesterday to discuss goals of care, he remains a full code. When medically ready, Chriss will discharge to [facility]. He may then transfer to a [facility], if needed. Per Annemarie Mckeon at [facility], if Chriss requires transfer to a tertiary hospital for a pacemaker, DOC prefers he transfer to [facility] or [facility] [place] [facility]. Per Annemarie Mckeon from [facility] there is no formal plan to release patient from [facility] custody. A: 56 year old male admitted to [facility] on 12/28/21 for Respiratory Failure P: Chriss continues to be closely monitored and treated in the ICU. Disposition will require coordination with [facility], where he is incarcerated. [facility] requests transfer to [facility] or [facility], if medically necessary. CM continues to follow. Annemarie Mckeon/[facility]:
--- NOTE | 2022-01-04 10:00 | DI.RAD_ITS ---
Exam(s) XR PORTABLE CHEST AP EXAM: XR PORTABLE CHEST AP CLINICAL HISTORY: ET and OG placement confirmation. TECHNIQUE: 2D digital imaging was performed. COMPARISON: No exams were available for comparison FINDINGS: Single AP portable view. The distal tip of the endotracheal tube is now above the nakita although still cysts pointed towards the origin of the right mainstem bronchus. Recommend pulling back 1 additional centimeter. Heart size is upper normal. The mediastinum is not widened. Left lower lobe retrocardiac infiltrate again noted. Right lung is relatively clear. No pleural eff usions. No obvious pneumothorax. IMPRESSION: Recommend pulling the endotracheal tube back 1 additional cm. DATA REPOSITORY: RADIATION DOSE DELIVERED: All CT scans at this facility use at least one of these dose optimization techniques: automated exposure control; mA and/or kV adjustment per patient size (includes targeted e xams where dose is matched to clinical indication); or iterative reconstruction.
--- NOTE | 2022-01-04 10:08 | CE_ITS ---
Date of service: 01/04/22 Time of Service: 09:00 Event Note: Called to see the patient emergently as the patient was in labored breathing diaphoretic and cool and mottled. Patient denied any chest pain or pressure but complained of dyspnea and weakness. Exam: Patient mottled face and extremities, diaphoretic, cool extremities Lungs: bilateral rales Heart: regular distant heart tones Abdomen: soft, nondistended Leg/feet, hands all cool w/ acral cyanosis, mottling of hands and feet and distal legs A/P: 1) cardiogenic shock w/ respiratory failure -emergent intubation, stabilization w/ vasopressors; fluid bolus 250 mL x 2 doses given (note POCUS echo done, RV is not dilated, IVC is small and completely collapses, LV is severely hypokinetic) _plans for transfer to [facility] to Dr. Cameron for aggressive cardiac care; patient may need IABP. or LVAD but for now will try combination of vasopressors and dobutamine Time Spent with Patient Time spent in critical care(minutes): 90 Time Spent Included: Time at immediate bedside
--- NOTE | 2022-01-04 10:15 | RT.EKG_ITS ---
APPROVED REPORT Exam: Resting ECG Reason for Exam: shock Patient Location: I HR:94 bpm ECG Measurements Heart Rate 94 AXIS DE [id number] P [id number] QRSd 188 QRS 94 QT 520 T -35 QTc 651 Conclusion Accelerated junctional rhythm...absent P waves, accele'd V-rate LBBB
--- NOTE | 2022-01-04 10:25 | W.PM.OP ---
Date of service: 01/04/22 Time of Service: 09:12 Operative Note Operative Note DATE OF PROCEDURE: 01/04/22 PRE-OP DIAGNOSIS: acute respiratory failure, cardiogenic shock POST-OP DIAGNOSIS: same PROCEDURE: Patient was emergently intubated to treat the patient for acute respiratory failure secondary to cardiogenic shock. I informed the patient of the indications for the procedure he nodded yes when asked whether he be willing to be reintubated. Patient was sedated with a total of 70 mg of ketamine and pretreated with lidocaine 60 mg, versed 2 mg and then was paralyzed with 50 mg of rocuronium. Using a low pro S3 glide scope his glottic opening and vocal cords were visualized and #8 ET tube was passed between the vocal cords successfully. Initially he had better breath sounds in the right lung compared to the left and his ET tube was pulled back 2 cm from 25 cm of the lips to 23 cm of lips. Initial chest x-ray prior to the ET tube being pulled back showed the tip of the ET tube in the right mainstem bronchus. SPO2 remained over 90% throughout the intubation process. Olinda Lama, nurse house visitor was present for intubation and administered the above mediations. Patient was also given phenylephrine bolus of 240 mcg to treat sadia-intubation hypotension in which his SBP dropped into the 70's. Epinephrine drip was ordered but was not needed for support of his BP. Refer to Anesthesia Record
[2022-01-04 10:28] LABS: HCO3 9 mmol/L (22-26); pCO2 41 mmHg (35-45); pO2 191 mmHg (80-105); sO2 99 % (95-98); tCO2 9 mmol/L (23-27)
[2022-01-04 10:31] LABS: Site Right Radial; pH 6.95 (7.35-7.45)
[2022-01-04 10:33] LABS: FIO2 40 %
--- NOTE | 2022-01-04 10:40 | W.ANESVAS ---
Arterial Line Placement Date Performed: 01/04/22 Procedure Time: 09:45 Procedure Location: Intensive Care Unit Requesting Provider: David Nolan Timeout Performed: Yes Sedation Given (Indicate Dose Given): No Sedation given Patient Mental Status: Performed under general anesthesia Sterility: Hand Hygiene, Surgical Cap, Surgical Mask, Sterile Gloves and Chlorhexidine Laterality: Left Insertion Site: Radial Arterial Line Catheter: 20G Arrow Arterial Line Procedure: Vessel accessed with needle, Guidewire placed with ease and Guidewire removed Dressing: Tegaderm Applied, Steristrips Used and Mastisol Used Ultrasound: Sterile probe cover and gel used Ultrasound Image Saved?: No Number of Attempts (See previous attempts in note section): 1 Procedure Tolerated: No Complications Procedure Outcome: Successful Performed By: Olinda Lama
[2022-01-04 10:47] LABS: Abs Immature Grans 3.35 10^3/uL (0.0-0.06); HCT 46.3 % (40.0-50.0); HGB 14.4 g/dL (13.5-17.5); MCH 28.7 pg (27.0-33.0); MCHC 31.1 % (32.0-36.0); MCV 92 fL (80-95); MPV 11.6 fL (8.0-11.0); RBC 5.02 10^6/uL (4.36-5.78); RDW 15.8 % (11.8-14.1); RDW-SD 53.4 fL
[2022-01-04] MEDS: Sodium Bicarbonate 50 MEQ/50 ML SYR IVP ×2 (10:50→11:50)
[2022-01-04 10:54] LABS: WBC 26.66 10^3/uL (4.4-10.8)
[2022-01-04 11:00] LABS: INR 1.5 (0.9-1.1); PTT Activated 44.7 sec (21.0-27.5); Prothrombin Time 14.4 sec (9.3-11.0)
[2022-01-04] MEDS: DOBUTamine 500 MG/250 ML BAG IV (11:07)
[2022-01-04 11:09] LABS: Absolute Basophil Count 0.53 10^3/uL (0.0-0.2); Absolute Eosinophil Count 0.53 10^3/uL (0.0-0.7); Absolute Monocyte Count 2.67 10^3/uL (0.1-0.8); Absolute Neutrophil Count 17.86 10^3/uL (1.2-6.7); Bands % 3; Diff Comment Manual Differential; Metamyelocytes % 2; Myelocytes % 2; Platelet Count 343 10^3/uL (130-400)
[2022-01-04 11:10] LABS: Polychromasia Present
[2022-01-04 11:13] LABS: ALT 458 U/L (16-63); AST 91 U/L (15-37); Albumin 2.9 g/dL (3.4-5.0); Alkaline Phosphatase 162 U/L (46-116); Anion Gap 21.7 mmol/L (3-11); BUN 55 mg/dL (7-18); Bilirubin, Total 1.6 mg/dL (0.2-1.0); CO2 11.3 mmol/L (21.0-32.0); CREATININE 3.5 mg/dL (0.70-1.30); Calcium 8.8 mg/dL (8.5-10.1); Chloride 96 mmol/L (98-107); Estimated GFR 18.08 (mL/min/1.73m2); NT-proBNP > 35000 pg/mL (<300); Sodium 129 mmol/L (136-145); Total Protein 7.5 g/dL (6.4-8.2); Troponin I < 50 ng/L (<or=60)
[2022-01-04 11:17] LABS: Glucose 42 mg/dL (74-106); Potassium 8.2 mmol/L (3.5-5.1)
--- NOTE | 2022-01-04 11:19 | DSE_ITS ---
Date of service: 01/04/22 Time of Service: 11:19 DS: Diagnosis Discharge Diagnosis (1) Cardiogenic shock: Status: Acute Asessment and Plan: Patient is a 56-year-old male with known history of dilated nonischemic cardiomyopathy documented by echocardiogram 11/15/2021 showed LVEF of 30% subsequent stress MPI obtained on 12/14/2021 demonstrated LVEF of 15% with no ischemic or infarct changes. Subsequently admitted to [facility] on 12/28/2021 acutely short of breath found to be in pulmonary edema who developed acute kidney injury and shock liver and metabolic acidosis with lactic acidosis. On admission his BUN/creatinine were elevated 28 and 2.3 subsequently carola to 59 and 4.0 on the following day. Anion gap on admission was 20.5 this blood lactate level 14.3 pH 7.0 and bicarbonate level 12.4. Initial transaminases were elevated with AST of 398, ALT 327 alkaline phosphatase 192 his proBNP was greater than 35,000. Chest x-ray showed pulmonary edema. Serial troponin levels were negative. Patient was intubated and mechanically ventilated and managed by Dr. Stephenie Soto shade cutter. Patient was successfully extubated on 12/30/2021. This was accomplished after aggressive diuresis. His initial creatinine went from 2.3 and carola to as high as 4.0 and his BUN carola from 28-59. On 12/31/2021 diuretics were discontinued. He was hemodynamically stabilized and after having been extubated and going on supplemental oxygen per nasal cannula he was transferred to the medical/surgical bed. Labs were monitored daily. His BUN/creatinine improved to a BUN of 42 creatinine 2.8 transaminases gradually came down to an AST of 73, ALT 523 and normal bilirubin 1.0. Patient was started on goal-directed therapy for his dilated cardiomyopathy and echocardiogram was performed. Echocardiogram as of 12/28/2021 demonstrated severely dilated left ventricle with global hypokinesis LVEF 20 to 25% RV was dilated mildly hypocontractile. He has mild mitral regurgitation normal tricuspid valve with trace to mild tricuspid regurgitation with estimated RVSP of 28 mm. Goal-directed therapy included initiation of Jardiance 10 mg daily as well as low-dose metoprolol 12.5 mg p.o. qid. Entresto which he had previously been on prior to admission was going to be restarted but was witheld pending resolution of his KHALIF. On the morning of 01/04/22 patient developed acute dyspnea, became diaphoretic and tachypneic. He was found to be mottled and hypotensive w/ SBP around 100 mm although he was not hypoxemic. He had poor perfusion as demonstrated by cool, cyanotic extremities and diaphoresis and decreased mentation. He was emergently transferred to ICU and intubated. See procedure note. He was given couple boluses of saline 250 mL and given phenylephrine 240 mcg and begun on dobutamine drip at 5 mcg/kg/minute. Intubation was eventfuly in only that the ET had to be pulled back from right mainstem bronchus to level of 23 cm at the gums. Stat labs and EKG were done. Patient's initial EKG demonstrate what appeared to accelerated junctional rhythm w/ peaked T waves. Patient had a pre-existing LBBB. Labs came back for hyperkalemia of 8.2 (patient had been on oral potassium supplementation while he was being diuresed but potassium supplementation had not been stopped until this morning prior to today's events; he did not get any potassium this morning) and worsening KHALIF w/ creatinine of 3.5 and BUN 55, anion gap of 21 and pH of 6.95 and lactate of 11.2. Patient was given calcium gluconate 1 gm iv push and given sodium bicarbonate 50 meq and dextrose 50 mg iv push. Insulin was not initially given as his glucose was 42 but after the D50 bolus his glucose came up to 232 and he was given additional D50 and Regular insulin 10 units ivp. Troponin level came back normal. BNP was over 35,000. POCUS exam echo was done and his LV is severely dilated hypocontractile diffusely, RV is mildly hypocontractile but is not enlarged and his IVC was small (less than 2 cm) and collapsing completely. Patient's repeat pH was 7.0 and he was given additional dose of sodium bicarbonate 50 meq. One dose of lokelma was given per his OG. After establishing urine output after placing brewer catheter, one dose of lasix 40 mg ivp was given. Repeat potassium prior to transport was 6.8. repeat pH was 6.9 despite two boluses of sodium bicarbonate. His ventilator setting which were TV 440 mL, AC 16 peep 5 cm and 40% FIO2. After his ABG'S his vent had been changed to AC 18, TV 440 mL and FIO2 30%, PEEP 5cm. At the time of transfer TV increased to 480 mL (7 mL/kg), AC 20, FIO2 30% and PEEP 5 cm. [facility] transfer center was called and after review of his case (done prior to getting his labs back), patient was accepted to [facility] to Dr. Lundberg for treatment of cardiogenic shock, acute respiratory failure. Dr. Soto presented prior to transfer and assisted the [facility] air critical care transport team. Full report was given to the [facility] team who assumed management of the patient for transport. (2) Hyperkalemia: Status: Acute Asessment and Plan: see above. patient treated w/ sodium bicarbonate 50 mequ x 2 doses, (3) CHF (congestive heart failure): Status: Chronic (4) CAD (coronary artery disease), [place] coronary artery: Status: Chronic (5) Full code status: Status: Acute (6) Acute respiratory failure with hypoxia: Status: Acute (7) Acute liver failure: Status: Acute (8) Acute renal failure: Status: Acute (9) COPD (chronic obstructive pulmonary disease): Status: Chronic (10) Palliative care encounter: Status: Acute (11) Anxiety: Status: Chronic (12) DJD (degenerative joint disease), lumbar: Status: Acute (13) Discharge planning issues: Status: Acute Discharge Plan Disposition Condition: Critical Discharge Details Reason For Visit: Respiratory Failure Admit Date/Time: 12/28/21 06:52 Admit Provider: Gamaliel Serrato Attending Provider: Gamaliel Serrato Primary Care Provider: Jared Glez [place] Meds and New Rx's Prescriptions: Continued atorvastatin 80 mg Tablet 80 mg PO DAILY omeprazole 20 mg Capsule,Delayed Release(Dr/Ec) 20 mg PO BID fluoxetine 60 mg Tablet 60 mg PO DAILY calcium carbonate [Calcium Antacid] 400 mg calcium (1,000 mg) Tablet,Chewable 1,000 mg PO 3XD PRN (Reason: Acid Reflux) Entresto 24-26 mg Tablet 1 tab PO 2XD melatonin 3 mg Capsule 3 mg PO 1XD fluticasone propion-salmeterol [Advair Diskus] 100-50 mcg/dose Blister With Device 2 inh INHALATION 2XD PRN (Reason: Dyspnea) Discontinued meloxicam 7.5 mg Tablet 7.5 mg PO DAILY diphenhydramine HCl 25 mg Capsule 25 mg PO 1XD levofloxacin 500 mg Tablet 500 mg PO 1XD metoprolol succinate [Toprol XL] 25 mg tablet extended release 24 hr 25 mg PO DAILY Qty: 30 0RF Rx Instructions: if sbp above 100 and HR above 55 Discharge Instructions Instructions: Heart Failure (DC), Acute Respiratory Failure (GEN) Activity:: bedrest Equipment/Supplies:: No Equipment Needed Diet:: NPO DS: Summary Time Spent with Patient providing and/or coordinating discharge services: Greater than 30 minutes (over 90 minutes) Specific discharge activities: exam of patient, educating patient and/or family about need for transfer and alternative treatment options, coordination of transfer w/ receiving facility and discussion of case w/ accepting provider(s), completion of transfer orders and discharge summary Status at Discharge Functional status at discharge: bed bound Overall status at discharge: patient is not back to baseline Mental Status: other Speech and Movement: agitated Mood: anxious mood and other Affect: anxious affect Exam Narrative Exam Narrative: Patient is now intubated; intially prior to intubation he was tachypneic, diaphoretic, and cool and mottled Lungs w/ bibasilar rales Heart: regular, no appreciable murmur Abdomen: obese, nondistended Extremities: no edema but initially his hands/feet and legs were cool and mottled w/ poor pulses; however after resuscitation skin warm, dry and color is improved Brewer was placed w/ urine output of 500 mL Psych Mental Status: other Speech and Movement: agitated Mood: anxious mood and other Affect: anxious affect DS: Data Vitals/I&O Vitals and I&O: Vital Signs Temperature 34.8 C L 01/04/22 09:00 Temperature Source Tympanic 01/04/22 08:56 Pulse 110 H 01/04/22 09:00 Pulse Rhythm Regular 01/04/22 04:27 Pulse 97 H 01/04/22 09:34 Respiratory Rate 12 01/04/22 09:34 Respiratory Effort Labored 01/04/22 09:00 Respiratory Depth Normal 01/04/22 04:27 Respiratory Pattern Normal 01/04/22 04:27 Blood Pressure 105/83 01/04/22 09:34 Blood Pressure Mean 83 01/02/22 13:01 Blood Pressure Position Supine 01/01/22 15:00 Pulse Oximetry 100 01/04/22 09:34 Respiratory End-tidal CO2 25 01/04/22 09:34 Oxygen Delivery Method Room Air 01/04/22 09:00 Oxygen Flow Rate 0 01/04/22 09:00 Fraction of Inspired Oxygen (FIO2) 40 01/04/22 09:34 Pain Level 7 01/04/22 07:44 Comment 01/04/22 08:56 Intake & Output 01/03/22 01/03/22 01/04/22 11:59 23:59 11:59 Intake Total 840 / 1100 260 / 1100 Output Total 200 / 200 Balance 640 / 900 260 / 900 Intake: IV 90 / 110 20 / 110 Oral 750 / 990 240 / 990 Output: Urine 200 / 200 Other: Urine Color Yellow Yellow Yellow Urine Appearance Clear Clear Clear Urine Odor Normal Comment Void x1 in the bedside commode. Mixed with stool. RN unable to determine urine amount. Void x1 in the bedside commode. Mixed with stool. RN unable to determine urine amount. unmeasured Pt voided on floor Stool Size Moderate Small Small Stool Characteristics Soft Soft Liquid Liquid Liquid Brown Voiding Methods Bedside Commode Bedside Commode Bedside Commode Data Completed and Pending Labs on day of discharge: Labs from last 24 hours 01/04/22 01/04/22 01/04/22 11:00 10:36 10:36 WBC 26.66 H* RBC 5.02 Hgb 14.4 Hct 46.3 MCV 92 D MCH 28.7 MCHC 31.1 L RDW 15.8 H Plt Count 343 MPV 11.6 H Immature Gran % See Differential Neutrophils % 64.0 Band Neutrophils % 3 Lymphocytes % 15.0 Monocytes % 10.0 Eosinophils % 2.0 Basophils % 2.0 Metamyelocytes % 2 Myelocytes % 2 Nucleated RBC % 2.0 H Absolute Neutrophils 17.86 H Absolute Lymphocytes 4.00 H Absolute Monocytes 2.67 H Absolute Eosinophils 0.53 Absolute Basophils 0.53 H RBC Morphology See Below Polychromasia Present PT 14.4 H INR 1.5 H APTT 44.7 H ABG Sample Site Pending ABG pH Pending ABG pCO2 Pending ABG pO2 Pending ABG HCO3 Pending ABG Total CO2 Pending ABG O2 Saturation Pending ABG Base Excess Pending Oxygen Liter Flow FiO2 Sodium Potassium Chloride Carbon Dioxide Anion Gap BUN Creatinine Estimated GFR/1.73 m2 Glucose Calcium Total Bilirubin AST ALT Alkaline Phosphatase Troponin I NT-Pro-B Natriuret Pep Total Protein Albumin 01/04/22 01/04/22 10:36 10:15 WBC RBC Hgb Hct MCV MCH MCHC RDW Plt Count MPV Immature Gran % Neutrophils % Band Neutrophils % Lymphocytes % Monocytes % Eosinophils % Basophils % Metamyelocytes % Myelocytes % Nucleated RBC % Absolute Neutrophils Absolute Lymphocytes Absolute Monocytes Absolute Eosinophils Absolute Basophils RBC Morphology Polychromasia PT INR APTT ABG Sample Site Right Radial ABG pH 6.95 L* ABG pCO2 41 ABG pO2 191 H ABG HCO3 9 L ABG Total CO2 9 L ABG O2 Saturation 99 H ABG Base Excess < -15 L Oxygen Liter Flow VT440/R12/P5 FiO2 40 Sodium 129 L Potassium 8.2 H* D Chloride 96 L Carbon Dioxide 11.3 L Anion Gap 21.7 H BUN 55 H Creatinine 3.5 H Estimated GFR/1.73 m2 18.08 Glucose 42 L* Calcium 8.8 Total Bilirubin 1.6 H AST 91 H ALT 458 H Alkaline Phosphatase 162 H Troponin I < 50 NT-Pro-B Natriuret Pep > 41944 H Total Protein 7.5 Albumin 2.9 L PFSH All Active Problems (Updated 01/04/22 @ 11:20 by David Nolan MD) Hyperkalemia (Acute) Palliative care encounter (Acute) Full code status (Acute) Anxiety (Chronic) COPD suggested by initial evaluation (Acute) Acute respiratory failure with hypoxia (Acute) Acute liver disease (Acute) Pneumonia (Acute) Acute renal failure (Acute) Acute liver failure (Acute) Hyponatremia (Acute) High anion gap metabolic acidosis (Acute) Cardiogenic shock (Acute) COPD (chronic obstructive pulmonary disease) (Chronic) Discharge planning issues (Acute) DVT prophylaxis (Acute) Thoracic lymphadenopathy (Chronic) Scrotal pain (Acute) CHF (congestive heart failure) (Chronic) CAD (coronary artery disease), [place] coronary artery (Chronic) Anemia (Chronic) Status post lumbar laminectomy (Acute) DJD (degenerative joint disease), lumbar (Acute) Mediastinal adenopathy (Acute) Sarcoid (Chronic) Chronic GERD (Acute) Elevated brain natriuretic peptide (BNP) level (Acute) Enlarged heart (Acute) Medical History Acute epididymitis Acute on chronic systolic CHF (congestive heart failure) Acute respiratory failure Atypical chest pain Bilateral pleural effusion COPD suggested by initial evaluation Pleural effusion, right Scrotal pain Shortness of breath Social History Smoking/Tobacco Use Status: Former Tobacco Use Smoking risk assessment performed?: Yes Alcohol Intake: former Substance use type: does not use Do you feel safe at home: Yes Do you feel safe in your relationship?: Yes
--- NOTE | 2022-01-04 11:23 | NUR.NOTE ---
Nursing Note: 01/04/22 @ 1122: the patinet public deefender, Michael Haq, called to speak with him. Informed Scott Severino that patient is unable to speak at this time and will most likely be trasnferred to [facility] pending transportation arrangements
--- NOTE | 2022-01-04 11:30 | RT.EKG_ITS ---
APPROVED REPORT Exam: Resting ECG Reason for Exam: Rhythm evaluatioon Patient Location: I HR:92 bpm ECG Measurements Heart Rate 92 AXIS OH 116 P 189 QRSd 197 QRS 102 QT 479 T -30 QTc 593 Conclusion Probable junctional rhythm, no P waves appreciated LBBB
[2022-01-04] MEDS: CALCIUM GLUCONATE in NaCl 1 GM/50 ML BAG IVPB (11:32)
[2022-01-04] MEDS: Dextrose 50%-Water 25 GM/50 ML SYR (11:35)
[2022-01-04 11:42] LABS: HCO3 11 mmol/L (22-26); pCO2 42 mmHg (35-45); pO2 128 mmHg (80-105); sO2 97 % (95-98); tCO2 11 mmol/L (23-27)
[2022-01-04 11:45] LABS: FIO2 30 %; Site Right Radial; pH 7.02 (7.35-7.45)
[2022-01-04] MEDS: Aspirin 300 MG SUPP PR (11:48)
[2022-01-04] MEDS: Sodium Zirconium Cyclosilicate 10 GM PKT PO (11:56)
[2022-01-04] MEDS: Insulin REGULAR-Human 100 UNITS/ML UNIT 10 UNITS SC (11:56)
[2022-01-04] MEDS: Dextrose 50%-Water 25 GM/50 ML SYR IVP (11:59)
[2022-01-04] MEDS: Furosemide 40 MG/4 ML VIAL IVP (12:23)
--- NOTE | 2022-01-04 12:36 | W.PULMCC ---
General Date of Service Date of service: 01/04/22 Time of Service: 12:36 Recommendations I&O: Intake & Output 01/01/22 01/02/22 01/03/22 01/04/22 23:59 23:59 23:59 23:59 Intake Total 2320 / 2320 780 / 780 1100 / 1100 60 / 60 Output Total 2345 / 2345 2009 200 / 200 Balance -25 / -25 -1230 / -1230 900 / 900 60 / 60 Weight 77.2 kg 77.2 kg Date of Last Bowel Movement: 01/04/22 Code Status: Resuscitation Status Full Code Most Recent VS/Results Last Vital Signs Temp 34.8 C L 01/04/22 09:00 Pulse 92 H 01/04/22 11:50 Resp 15 01/04/22 11:50 BP 101/69 01/04/22 11:50 Pulse Ox 94 01/04/22 11:19 Laboratory Results - last 24 hr 01/04/22 01/04/22 01/04/22 10:15 10:36 10:36 WBC 26.66 H* RBC 5.02 Hgb 14.4 Hct 46.3 MCV 92 D MCH 28.7 MCHC 31.1 L RDW 15.8 H Plt Count 343 MPV 11.6 H Immature Gran % See Differential Neutrophils % 64.0 Band Neutrophils % 3 Lymphocytes % 15.0 Monocytes % 10.0 Eosinophils % 2.0 Basophils % 2.0 Metamyelocytes % 2 Myelocytes % 2 Nucleated RBC % 2.0 H Absolute Neutrophils 17.86 H Absolute Lymphocytes 4.00 H Absolute Monocytes 2.67 H Absolute Eosinophils 0.53 Absolute Basophils 0.53 H RBC Morphology See Below Polychromasia Present PT INR APTT ABG Sample Site Right Radial ABG pH 6.95 L* ABG pCO2 41 ABG pO2 191 H ABG HCO3 9 L ABG Total CO2 9 L ABG O2 Saturation 99 H ABG Base Excess < -15 L Oxygen Liter Flow VT440/R12/P5 FiO2 40 Sodium 129 L Potassium 8.2 H* D Chloride 96 L Carbon Dioxide 11.3 L Anion Gap 21.7 H BUN 55 H Creatinine 3.5 H Estimated GFR/1.73 m2 18.08 Glucose 42 L* Calcium 8.8 Total Bilirubin 1.6 H AST 91 H ALT 458 H Alkaline Phosphatase 162 H Troponin I < 50 NT-Pro-B Natriuret Pep > 21565 H Total Protein 7.5 Albumin 2.9 L 01/04/22 01/04/22 10:36 11:00 WBC RBC Hgb Hct MCV MCH MCHC RDW Plt Count MPV Immature Gran % Neutrophils % Band Neutrophils % Lymphocytes % Monocytes % Eosinophils % Basophils % Metamyelocytes % Myelocytes % Nucleated RBC % Absolute Neutrophils Absolute Lymphocytes Absolute Monocytes Absolute Eosinophils Absolute Basophils RBC Morphology Polychromasia PT 14.4 H INR 1.5 H APTT 44.7 H ABG Sample Site Right Radial ABG pH 7.02 L* ABG pCO2 42 ABG pO2 128 H ABG HCO3 11 L ABG Total CO2 11 L ABG O2 Saturation 97 ABG Base Excess < -15 L Oxygen Liter Flow vt440/rr16/p5 FiO2 30 Sodium Potassium Chloride Carbon Dioxide Anion Gap BUN Creatinine Estimated GFR/1.73 m2 Glucose Calcium Total Bilirubin AST ALT Alkaline Phosphatase Troponin I NT-Pro-B Natriuret Pep Total Protein Albumin
--- NOTE | 2022-01-04 13:10 | CMDISCH_ITS ---
- If Service Date Differs Date of service: 01/04/22 Time of Service: 13:10 LACE Index Scoring Tool - Questions: Length of Stay (in days): 7 - 13 Acuity (Admit via E.D.?): Yes Comorbidities: Congestive Heart Failure, Chronic Pulmonary Disease E.D. Visits: 3 - Answers: Total Score: 16 Risk of Readmission: High Risk Care Management Discharge Reason for Hospitalization: Respiratory Failure Discharge Plan: Chriss is transferred to [facility] via [facility] critical care air transport. Patient was accepted to [facility] by Dr. Lundberg, coordinated by Hospitalist Dr. Nolan. CM provided updates to Annemarie Mckeon from [facility], including patients condition and transfer information as it became available. Per Leander Sharpe at DOC will notify pts contacts/family. Patient/Family Education Needs: Review transfer instructions. ask me three. Services Needed at Discharge: Transportation ([facility] medical air transport, coordinated by RN supervisor waterproofing)
--- NOTE | 2022-01-04 13:10 | PDOC.CMDIS ---
- If Service Date Differs Date of service: 01/04/22 Time of Service: 13:10 LACE Index Scoring Tool - Questions: Length of Stay (in days): 7 - 13 Acuity (Admit via E.D.?): Yes Comorbidities: Congestive Heart Failure, Chronic Pulmonary Disease E.D. Visits: 3 - Answers: Total Score: 16 Risk of Readmission: High Risk Care Management Discharge Reason for Hospitalization: Respiratory Failure Discharge Plan: Chriss is transferred to [facility] via [facility] critical care air transport. Patient was accepted to [facility] by Dr. Lundberg, coordinated by Hospitalist Dr. Nolan. CM provided updates to Annemarie Mckeon from [facility], including patients condition and transfer information as it became available. Per Leander Sharpe at DOC will notify pts contacts/family. Patient/Family Education Needs: Review transfer instructions. ask me three. Services Needed at Discharge: Transportation ([facility] medical air transport, coordinated by RN blacksmith supervisor)
--- NOTE | 2022-01-04 13:53 | NT_ITS ---
Date of service: 01/04/22 Time of Service: 13:55 PT Notes Visit Reasons: Respiratory Failure Patient needed to be sent to tertiary hospital for emergent medicla intervention for respiratory failure and cardiogenic shock. No services were provided for this admission. Thank you for the opportunity to participate in the care of this patient. Genesis De La O PT, DPT, CLT [facility] [place], [place]
--- NOTE | 2022-01-04 13:55 | NUR.NOTE ---
Nursing Note: Below is a summary of events of the rapid response until patient was transferred to [facility], some times are approximated. ICU staff notified of patient on MS in acute respiratory and cardiogenic collapse. Roles were assigned, suction set-up, and emergency equipment placed at the bedside. The patient arrived to the ICU accompanied by staff from the Medical Surgical unit. He was transferred to the ICU bed, placed on the monitor, and evaluated immediately by Dr. Nolan. The patient arrived to the unit on 2 L nasal cannula, oxygen was increased to 4 L nasal cannula and then 8 L nasal cannula (See ICU Arrival Assessment for patient status). The patient was quickly becoming somnolent with RR 30-[address] Nolan ordered the patient be intubated. Intubation supplies set-up while the patient was connected to AED pads and CODE cart was brought into the room. Anesthesia was available to assist with medication (see discharge summary for medications). Intubation: At 09 patient was given Ketamine IV push, Lidocaine and Rocuronuim IV push. Pt was still talking and at 910 versed 2mg IVP was given, 911 Dr. Nolan intubated using the glidescope and placed an 8Fr ET tube. Capnography 14-25 and lung sounds confirmed bilaterally by Dr. Nolan. 913 Pt's BP dropped to 70s/50s which was supported with epinephrine boluses by the CARE ADMINISTRATIVE TECH Olinda. 250ml bolus of NS started. OG placement 915. 919 Patient's BP responded well to the epinephrine and phenylephrine with BP of 100/67. The patients oxygen began to decrease at 0923 to the 70s sp02. The staff began ventilating the patient manually while anesthesia made adjustments to the tube position and assessed airway. Portable CXR had just completed and provider was notified that the tube needed to be pulled back. Tube was repositioned to 24 at the gum line and confirmed in correct placement. O2 back at 99%. Dr. Nolan began process for [facility] Snack Foods Mixer Operator for consultation. 927. Tube and OG placement verified by portable xray. 2nd 250ml bolus given as Dr. Nolan had assessed a collapsing IVC on POCUS pre-intubation. Patient getting mild rehydration given cardiogenic shock. 941 OG placed to suction and patient had 650ml of white/wallace tinged fluid. MD aware. 44 L radial arterial line placed by by Esha Lama CRNA. (See mechanical ventilation screen for vent settings). 0915 Patient's ABG showed patient in metabolic acidosis with pH of 6.95. Over the next few hours the patient was acidotic, hyperkalemic, and had multiple care items as discussed below. 1050 50mEq of sodium bicarb. pt also assessed at a RASS -1 and propofol started at 5mcg/kg/min. Pt opening eyes to loud verbal stimuli. 1107 DoButamine 2mcg/kg/min started with arterial BP of 111/78. 1108 MD notified of potassium at 8.2 and sugar of 42, MD ordered calcium gluconate, Dextrose, holding on insulin until glucose rises. Dr. Soto, Hot Strip Finisher at patient bedside and reviewing care with Dr. Nolan 1132 Calcium Gluconate 1g run in IVP over 5-8 min 1135 Dextrose 25g IVP 1141 Miller placed 1148 Asparin 300mg suppository placed 1150 Sodium Bicarb 50mEq IVP, Glu 232 1156 Humulin 10unit insulin given by Ave DODSON and Lokelma 10g given by Rambo DODSON through OG tube. 1159 2nd Dextrose 25g IVP given, [facility] arrived 1207 [facility] arrived and getting patient on their equipment. 1223 Patient got 40mg IVP lasix per Dr. Serrato to help diurese potassium. 1230 Patient left unit with [facility] air crew. All lines and tubes were secure and verified in proper position for transfer.
--- NOTE | 2022-01-04 15:11 | W.EVENT ---
Date of service: 01/04/22 Time of Service: 11:30 Event Note: This is a 56 yo who I had been seeing in the ICU for cardiogenic shock who required intubation and dobutamine. He had acute kidney failure and acute liver failure but with inotropic care and supportive care he did slowly improve. He was able to be extubated and transferred out of the ICU. He continued to improve, however today he went for an echo and decompensated. He was found to be mottled and extremely tachypnic. He was urgently transferred to the ICU and intubated. He and an arterial line placed. He was found to have a severe metabolic acidosis with a lactate of 10 and a pH of 6.95. He was also found to have a potassium of 8.5. He was given calcium, bicarb and dextrose (no insulin initially as he was hypoglycemic). Upon my arrival he was cold to touch in the extremities but diaphoretic. He was only on 2 mcg of dobutamine with MAP >65. He had not had a Miller placed. I recommended another amp of bicarp, STAT placement of a Miller. I decreased optimized his ventilator settings and asked for a repeat ABG. On this repeat gas he now had hypercapnea, so I increased his RR and tidal volume (but still below 8cc/kg). Once his fingerstick improved I recommended giving insulin and more dextrose. We also administered insulin at this time to temporize him while the Lokelma took time to work. Given his good blood pressure I did also agree Lasix prior to transfer should be given. Ultimately I recommended his pH and potassium be improved from what it was prior to him being transferred, which both were at the time that I left the ICU to return to my clinic. ROS unable to be obtained due to endotracheal tube Medications, imaging and labs reviewed Gen: intubated and sedated, but only on 5 of Propofol HENT: PERRL Chest: No respiratory distress, normal appearance of chest, clear to auscultation bilaterally Heart: regular rate and rhythym, no murmurs, rubs or gallops Abdomen: Non-distended, soft, non tender Extremities: old and mottled extremities Neuro: unable to assess, only on 5 of propofol and only responsive to pain Psych: unable to asses Total time present at the bedside involving orders, signing out to transfer providers, discussing care plan with hospitalist and working on patients was 1 hour. An additional 20 minutes was spend reviewing the patients chart. Time Spent with Patient Time spent in critical care(minutes): 80 Time Spent Included: Coordination of care, Chart review, Documenting critically ill care, Time at immediate bedside and Discussing critically ill care with other medical staff
--- NOTE | 2022-01-07 08:23 | NUR.NOTE ---
Rambo Soria CCRN Clinical Educator in chart for educational case review and documentation audit. Nursing Note:
== END 2022-01-04 12:30 | DRG 291 ==
LOC: ER 07:20 → ICU 07:53 → MS 01-02 13:14 → ICU 01-04 09:12
PROVIDERS: Internal Medicine; Student in an Organized Health Care Education/Training Program; Admitting Provider Family Medicine; Emergency Provider Emergency Medicine; Visit Provider Family Medicine
DX: I50.43 Acute on chronic combined systolic (congestive) and diastolic (congestive) heart failure (principal); J96.01 Acute respiratory failure with hypoxia; R57.0 Cardiogenic shock; E87.2 Acidosis; J18.9 Pneumonia, unspecified organism; E87.1 Hypo-osmolality and hyponatremia; N17.9 Acute kidney failure, unspecified; K72.00 Acute and subacute hepatic failure without coma; I25.10 Atherosclerotic heart disease of native coronary artery without angina pectoris; D64.9 Anemia, unspecified; K21.9 Gastro-esophageal reflux disease without esophagitis; J44.0 Chronic obstructive pulmonary disease with (acute) lower respiratory infection; M47.816 Spondylosis without myelopathy or radiculopathy, lumbar region; R59.0 Localized enlarged lymph nodes; D86.9 Sarcoidosis, unspecified; I42.0 Dilated cardiomyopathy; I44.7 Left bundle-branch block, unspecified; E87.5 Hyperkalemia
CPT/HCPCS: 36556; 31500; 36415; 36569; 36592; 71045; 71275; 80048; 80053; 80307; 82803; 82805; 83690; 83935; 84145; 85027; 86704; 86709; 86803; 87040; 87081; 87340; 87389; 87635; 93005; 93308; 94640; 96361; 96365; 96366; 96368; 99291; 36600; 76700; 81003; 81015; 82248; 83605; 83735; 83880; 83930; 84443; 84484; 85025; 85610; 85730; 93010; 94002; 94003; 94660; 99223; 99232; 99233; 99239; J1644; J1940; J1941; J2250; J2405; J2543; J2930; J3010; J3480; J3490; J7613; J7620